=== PATIENT | male | born 1950 | race Caucasian/White ===

== ENCOUNTER 2016-06-01 07:59 | Inpatient (IN) | payer OTHER ==
[2016-06-01 07:59] VITALS: BMI 34.1
--- NOTE | 2016-06-01 08:40 | C.PDOC ---
History Of Present Illness 66 year old male presents to the ED with complaints of hematuria with associated lower cramping abdominal pain for the past 4 days. Patient states he went to his PMD yesterday and was advised to come to the ED. Denies passing clots, difficulty urinating, pain with urination, fever, or any other complaints at this time. Time Seen by Provider: 06/01/16 08:24 Chief Complaint (Nursing): Male Genitourinary History Per: Patient History/Exam Limitations: no limitations Onset/Duration Of Symptoms: Days Current Symptoms Are (Timing): Still Present Severity: Mild Quality Of Discomfort: Cramping Associated Symptoms: denies: Fever, Chills, Nausea, Vomiting, Back Pain Past Medical History Reviewed: Historical Data, Nursing Documentation, Vital Signs Vital Signs: Last Vital Signs Temp 98.4 F 06/01/16 13:11 Pulse 67 06/01/16 13:11 Resp 18 06/01/16 13:11 BP 177/93 H 06/01/16 13:11 Pulse Ox 97 06/01/16 13:11 - Medical History PMH: Diabetes, HTN, Hyperlipidemia, Chronic Kidney Disease (SEE COMMENT) Surgical History: Endoscopy - [facility] Procedures CLOSED ENDOSCOPIC BIOPSY OF LARGE INTESTINE (06/02/14) DESTRUCTION OF BLADDER, ENDO (01/04/16) DRAINAGE OF BLADDER NECK, ENDO, DIAGN (01/04/16) Family History: States: Unknown Family Hx - Social History Hx Tobacco Use: No Hx Alcohol Use: No (Former) Hx Substance Use: No Review Of Systems Except As Marked, All Systems Reviewed And Found Negative. Constitutional: Negative for: Fever, Chills Gastrointestinal: Positive for: Abdominal Pain (+Cramping lower abdominal pain) . Negative for: Nausea, Vomiting, Diarrhea Genitourinary: Positive for: Hematuria. Negative for: Dysuria, Frequency, Incontinence, Penile Pain Musculoskeletal: Negative for: Back Pain Skin: Negative for: Rash Neurological: Negative for: Weakness, Numbness Physical Exam - Physical Exam Appears: Non-toxic, No Acute Distress Skin: Normal Color, Warm, Dry Head: Atraumatic, Normacephalic Eye(s): bilateral: Normal Inspection Oral Mucosa: Moist Chest: Symmetrical, No Deformity Cardiovascular: Rhythm Regular, No Murmur Respiratory: Normal Breath Sounds, No Rales, No Rhonchi, No Wheezing Gastrointestinal/Abdominal: Soft, Tenderness (+Minimal suprapubic tenderness), No Distention, No Guarding, No Rebound Extremity: Normal ROM, No Deformity Neurological/Psych: Oriented x3, Normal Speech, Normal Cognition ED Course And Treatment - Laboratory Results Result Diagrams: 06/01/16 09:25 06/01/16 09:25 O2 Sat by Pulse Oximetry: 98 (Room air) Pulse Ox Interpretation: Normal - CT Scan/US CT ABD & Pelvis w/o contrast Other Rad Studies (CT/US): Read By Radiologist, Radiology Report Reviewed CT/US Interpretation: Findings: Limited evaluation of the lung bases demonstrates an 8 millimeter nodule seen along the fissure on series 3, image 7 anteriorly. Additional 5 millimeter nodule is seen within the right middle lobe anteroinferiorly. Prominent bibasilar atelectasis. Linear atelectasis within the inferior aspect of the left upper lobe. 5 millimeter subpleural nodule along the lateral aspect of the left upper lobe inferiorly. No significant axillary adenopathy. No pleural or pericardial effusion. Prominent liver with fatty infiltration. 5 millimeter calcification within the right hepatic lobe superiorly. Gallbladder appears preserved. Spleen appears preserved. Adrenal glands are preserved. Fatty atrophy of the pancreas. Upper abdominal bowel is preserved. Right kidney: No calculi, mass lesion, or hydronephrosis. Left Kidney: Again identified is a 9.5 x 7.1 x 5.9 centimeter heterogeneous solid lesion previously noted on ultrasound and CT scan. This is thought to be a solid renal cell carcinoma with possible internal necrotic and/ or hemorrhagic components. Since the prior study, there appears to be interval enlargement of the lesion with new prominent perinephric fat stranding and fluid surrounding the left kidney. There is a small focal area of increased attenuation seen within the layering portion of the renal pelvis which may represent some acute hemorrhage. Superimposed acute infectious changes cannot be excluded. Mild thickening of the urinary bladder. Heterogeneous prostate measuring up to 5.3 x 4.1 centimeters. Evaluation of the lower abdominal bowel demonstrates a mild rectal wall thickening. Fecal retention in the colon. Few scattered diverticuli. Under distended descending colon. Appendix not well visualized. Calcification and plaque within the aorta and iliac vessels. Few shotty para-aortic and inguinal lymph nodes. Few shotty mesenteric lymph nodes. Small fat containing midline umbilical hernia. Degenerative changes in the spine with multiple paravertebral osteophytes. Bridging sclerosis at the bilateral SI joints. Again identified is a vertebral body hemangioma in the L1 vertebral body. Impression: Again identified is a 9.5 x 7.1 x 5.9 centimeter heterogeneous solid lesion previously noted on ultrasound and CT scan in the left kidney. This is thought to be a possible solid renal cell carcinoma with possible internal necrotic and/or hemorrhagic components. Since the prior study , there appears to be interval enlargement of the lesion with new prominent perinephric fat stranding and fluid surrounding the left kidney. Clinical correlation. There is a small focal area of increased attenuation seen within the layering portion of the renal pelvis which may represent some acute hemorrhage. Superimposed acute infectious changes cannot be excluded. Additional findings as above. Progress Note: CT ABD & Pelvis w/o contrast, Blood work, and Urinalysis ordered and reviewed. Bladder scan done. Patient treated with Toradol. Medical Decision Making Medical Decision Making: Pt remained stable in the Ed with out difficult urinating CT worsening of renal mass found 12/21 At that time pt was to follow up as OP for surg Case discussed with dr Lor Garcia, in view of the lack of follow up increasing mass and hematuria admission indicated, however hospitalist recommended. Discussed with dr Coleman who agrees with plan Disposition - Disposition Disposition: HOSPITALIZED Disposition Time: 13:15 Condition: GOOD - Clinical Impression Clinical Impression: Hematuria, Renal mass - Scribe Statement The provider has reviewed the documentation as recorded by the Scribe Lewis Johns. Provider Attestation: All medical record entries made by the Scribe were at my direction and personally dictated by me. I have reviewed the chart and agree that the record accurately reflects my personal performance of the history, physical exam, medical decision making, and the department course for this patient. I have also personally directed, reviewed, and agree with the discharge instructions and disposition.
[2016-06-01 09:19] LABS: RBC URINE 322 /hpf (0-3); URINE BILIRUBIN NEGATIVE (NEGATIVE); URINE BLOOD 3+ (NEGATIVE); URINE COLOR Yellow (YELLOW); URINE GLUCOSE (UA) NORMAL (Normal); URINE KETONE NEGATIVE (NEGATIVE); URINE LEUKOCYTE ESTERASE NEG Leu/uL (Negative); URINE PROTEIN 1+ mg/dL (NEGATIVE); URINE UROBILINOGEN NORMAL mg/dL (0.2-1.0); WBC URINE 5 /hpf (0-5)
[2016-06-01 09:37] LABS: BASO # 0.2 K/uL (0.0-0.2); BASO % 1.3 % (0.0-2.0); EOS # 0.1 K/uL (0.0-0.7); EOS % 0.3 % (0.0-4.0); HEMATOCRIT 39.7 % (35.0-51.0); LYMPH # 3.1 K/uL (1.0-4.3); LYMPH % 19.3 % (20.0-40.0); MEAN CORPUSCULAR HEMOGLOBIN 26.5 pg (27.0-31.0); MEAN CORPUSCULAR HGB CONC 32.3 g/dL (33.0-37.0); MEAN PLATELET VOLUME 9.3 fL (7.2-11.7); MONO # 0.9 K/uL (0.0-0.8); MONO % 5.8 % (0.0-10.0); RED CELL DISTRIBUTION WIDTH 14.4 % (11.5-14.5)
[2016-06-01 09:43] LABS: MEAN CELL VOLUME 81.8 fL (80.0-94.0); WHITE BLOOD COUNT 15.9 K/uL (4.8-10.8)
[2016-06-01 09:51] LABS: CHLORIDE 99 mmol/L (98-107)
[2016-06-01 09:52] LABS: POTASSIUM 4.1 mmol/L (3.6-5.2); SODIUM 140 mmol/L (132-148)
[2016-06-01 09:54] LABS: ALB/GLOB RATIO 1.2 (1.0-2.1); ALKALINE PHOSPHATASE 62 U/L (38-126); ALT/SGPT 27 U/L (21-72); AST/SGOT 30 U/L (17-59); BILIRUBIN,TOTAL 1.3 mg/dL (0.2-1.3); BLOOD UREA NITROGEN 29 mg/dL (9-20); CARBON DIOXIDE 26 mmol/L (22-30); GFR AFRICAN-AMERICAN > 60; TOTAL PROTEIN 7.5 g/dL (6.3-8.3)
[2016-06-01 09:55] LABS: CALCIUM 9.3 mg/dl (8.6-10.4); GLUCOSE,RANDOM 124 mg/dL (75-110)
--- NOTE | 2016-06-01 10:46 | CT ---
CT abdomen and pelvis History: Hematuria. Lower abdominal pain. Comparison: CT scan dated 01/03/2016 Technique: Multiple contiguous axial images were performed through the abdomen and pelvis without the use of intravenous contrast. Subsequently, sagittal and coronal reformatted images were obtained. This CT exam was performed using one or more of the following dose reduction techniques: Automated exposure control, adjustment of the mA and/or kV according to patient size, and/or use of iterative reconstruction technique. Findings: Limited evaluation of the lung bases demonstrates an 8 millimeter nodule seen along the fissure on series 3, image 7 anteriorly. Additional 5 millimeter nodule is seen within the right middle lobe anteroinferiorly. Prominent bibasilar atelectasis. Linear atelectasis within the inferior aspect of the left upper lobe. 5 millimeter subpleural nodule along the lateral aspect of the left upper lobe inferiorly. No significant axillary adenopathy. No pleural or pericardial effusion. Prominent liver with fatty infiltration. 5 millimeter calcification within the right hepatic lobe superiorly. Gallbladder appears preserved. Spleen appears preserved. Adrenal glands are preserved. Fatty atrophy of the pancreas. Upper abdominal bowel is preserved. Right kidney: No calculi, mass lesion, or hydronephrosis. Left Kidney: Again identified is a 9.5 x 7.1 x 5.9 centimeter heterogeneous solid lesion previously noted on ultrasound and CT scan. This is thought to be a solid renal cell carcinoma with possible internal necrotic and/or hemorrhagic components. Since the prior study, there appears to be interval enlargement of the lesion with new prominent perinephric fat stranding and fluid surrounding the left kidney. There is a small focal area of increased attenuation seen within the layering portion of the renal pelvis which may represent some acute hemorrhage. Superimposed acute infectious changes cannot be excluded. Mild thickening of the urinary bladder. Heterogeneous prostate measuring up to 5.3 x 4.1 centimeters. Evaluation of the lower abdominal bowel demonstrates a mild rectal wall thickening. Fecal retention in the colon. Few scattered diverticuli. Under distended descending colon. Appendix not well visualized. Calcification and plaque within the aorta and iliac vessels. Few shotty para-aortic and inguinal lymph nodes. Few shotty mesenteric lymph nodes. Small fat containing midline umbilical hernia. Degenerative changes in the spine with multiple paravertebral osteophytes. Bridging sclerosis at the bilateral SI joints. Again identified is a vertebral body hemangioma in the L1 vertebral body. Impression: Again identified is a 9.5 x 7.1 x 5.9 centimeter heterogeneous solid lesion previously noted on ultrasound and CT scan in the left kidney. This is thought to be a possible solid renal cell carcinoma with possible internal necrotic and/or hemorrhagic components. Since the prior study, there appears to be interval enlargement of the lesion with new prominent perinephric fat stranding and fluid surrounding the left kidney. Clinical correlation. There is a small focal area of increased attenuation seen within the layering portion of the renal pelvis which may represent some acute hemorrhage. Superimposed acute infectious changes cannot be excluded. Additional findings as above.
--- NOTE | 2016-06-01 14:04 | CP.PCM.HP ---
<Anish Marte - Last Filed: 06/01/16 22:08> History of Present Illness - History of Present Illness History of Present Illness: CC: hematuria and abdominal pain HPI: 66 year old male presents with complaints of one incidence of hematuria four days ago. Patient also admits to crampy abdominal pain which started yesterday and continued today. Patient states that the hematuria quickly resolved however the abdominal pain remained. The pain was rated an 8/10 at it' s worst yesterday with no alleviating factors noted. He states that he attempted to drink water with lemon which did not make a difference in pain quality. Pain is located below the umbilicus and not radiating. Patient states that he was last admitted in December 2015 for hematuria as well for which Urologist Dr. Garcia was consulted at the time. Upon that discharge, patient was asked to follow up with Dr. Garcia however patient states that he was provided with the wrong address. He was not able to actually see Dr. Garcia until May of this month. On that encounter, patient states that he was told he had a kidney mass which would need further follow up. Presently, patient states that he then had the symptoms of hematuria a few days ago. He spoke with his PMD after the fact who instructed him to come in. Patient admits to back pain last night, urinary frequency, nocturia and crampy abdominal pain relieved my medication given in the ED. At this time, patient denies subjective fevers or chills, nausea, vomiting, diarrhea, constipation, chest pain, palpitations, dyspnea, dysuria, headaches, lightheadedness, or visual changes. Patient speaks scottish only and was accompanied by brother in the room. Consent was obtained to proceed with conversation with brother present. Translation obtained with materials associate Michael #[id number]. Past Med Hx: DM, HTN, gout Past surgical hx: none Family hx: Father had prostate cancer, mother had DM; Sister had thyroid disease. She of lung cancer last year Social hx: denies tobacco or drug use. Used to drink more alcohol however stopped drinking due to gout diagnosis. 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 (Patient states that he worked for many years without using the required mask that his job advised due to facial discomfort) Meds: mima, Metformin 1000mg Q12, Valsartan 320mg, Amlodipine 5 mg daily, Metoprolol Succinate 50mg daily, Indomethacin 25 mg TID, Nabumetone 750mg BID, Atenolol 25mg Q12, ASA 81 mg Allergies: none PMD: Dr. Darrian Richardson Present on Admission - Present on Admission Any Indicators Present on Admission: No Review of Systems - Constitutional Constitutional: absent: Anorexia, Chills, Daytime Sleepiness, Excessive Sweating , Fever, Frequent Falls, Headache, Increased Appetite, Lethargy, Weakness - EENT Eyes: absent: Blurred Vision, Change in Vision Ears: absent: Ear Discharge, Ear Pain Nose/Mouth/Throat: absent: Nasal Congestion, Nasal Discharge - Cardiovascular Cardiovascular: absent: Chest Pain, Chest Pain at Rest, Chest Pain with Activity , Dyspnea, Edema, Irregular Heart Rhythm - Respiratory Respiratory: absent: Cough, Dyspnea, Hemoptysis - Gastrointestinal Gastrointestinal: Abdominal Pain. absent: Diarrhea, Loose Stools, Melena, Nausea, Vomiting - Genitourinary Genitourinary: Hematuria, Nocturia, Urinary Frequency. absent: Difficulty Urinating, Flank Pain, Urinary Incontinence, Urinary Hesitance - Musculoskeletal Musculoskeletal: Back Pain. absent: Abnormal Gait, Arthralgias - Integumentary Integumentary: absent: Dry Skin, Rash - Neurological Neurological: absent: Abnormal Gait, Abnormal Hearing - Psychiatric Psychiatric: absent: Abnormal Sleep Pattern, Anhedonia - Endocrine Endocrine: absent: Change in Body Appearance - Hematologic/Lymphatic Hematologic: absent: Easy Bleeding, Easy Bruising Past Patient History - Infectious Disease Hx of Infectious Diseases: None - Tetanus Immunizations Tetanus Immunization: Unknown - Past Medical History & Family History Past Medical History?: Yes - Past Social History Smoking Status: Never Smoked - CARDIAC Hx Hypertension: Yes - PULMONARY Hx Respiratory Disorders: No - NEUROLOGICAL Hx Neurological Disorder: No - HEENT Hx HEENT Problems: No - RENAL Hx Chronic Kidney Disease: Yes (SEE COMMENT) - ENDOCRINE/METABOLIC Hx Endocrine Disorders: Yes Hx Diabetes Mellitus Type 2: Yes - HEMATOLOGICAL/ONCOLOGICAL Hx Blood Disorders: No - INTEGUMENTARY Hx Dermatological Problems: No - MUSCULOSKELETAL/RHEUMATOLOGICAL Hx Musculoskeletal Disorders: Yes Hx Gout: Yes - GASTROINTESTINAL Hx Gastrointestinal Disorders: No - GENITOURINARY/GYNECOLOGICAL Hx Genitourinary Disorders: No Other/Comment: mass to Lt. kidney - PSYCHIATRIC Hx Substance Use: No - SURGICAL HISTORY Hx Surgeries: Yes - ANESTHESIA Hx Anesthesia: Yes Hx Anesthesia Reactions: No Hx Malignant Hyperthermia: No Meds Allergies/Adverse Reactions: Allergies Allergy/AdvReac Type Severity Reaction Status Date / Time No Known Allergies Allergy Verified 06/01/16 08:22 Physical Exam - Constitutional Appears: Non-toxic, No Acute Distress - Head Exam Head Exam: ATRAUMATIC, NORMAL INSPECTION, NORMOCEPHALIC - Eye Exam Eye Exam: EOMI, Normal appearance, PERRL Pupil Exam: NORMAL ACCOMODATION - ENT Exam ENT Exam: Mucous Membranes Moist, Normal Exam - Neck Exam Neck exam: Positive for: Full Rom - Respiratory Exam Respiratory Exam: Clear to Auscultation Bilateral, NORMAL BREATHING PATTERN. absent: Wheezes - Cardiovascular Exam Cardiovascular Exam: REGULAR RHYTHM, +S1, +S2. absent: Bradycardia, Tachycardia - GI/Abdominal Exam GI & Abdominal Exam: Distended, Normal Bowel Sounds, Soft, Tenderness. absent: Firm, Guarding Additional comments: healed dark burn cedeno above umbilicus - Extremities Exam Extremities exam: Positive for: full ROM, normal capillary refill, pedal pulses present. Negative for: calf tenderness, joint swelling, pedal edema, tenderness - Back Exam Back exam: FULL ROM. absent: CVA tenderness (L), CVA tenderness (R), rash noted - Neurological Exam Neurological exam: Alert, CN II-XII Intact, Oriented x3, Reflexes Normal - Psychiatric Exam Psychiatric exam: Normal Affect, Normal Mood - Skin Skin Exam: Intact, Normal Color, Warm Additional comments: burn cedeno on abdomen and chest Results - Vital Signs Recent Vital Signs: Last Vital Signs Temp 98.4 F 06/01/16 13:11 Pulse 67 06/01/16 13:11 Resp 18 06/01/16 13:11 BP 177/93 H 06/01/16 13:11 Pulse Ox 97 06/01/16 13:11 - Labs Result Diagrams: 06/01/16 09:25 06/01/16 09:25 Assessment & Plan (1) Abdominal pain Assessment and Plan: Toradol administered in ED. Alleviated pain F/U US imaging CT- renal mass noted Status: Acute (2) Renal mass Assessment and Plan: CT imaging confirms left renal mass. Refer to full report Pelvic US- F/U report Consult to Urology Dr. Garcia- F/U Routine EKG, Chest xray, coags ordered in case pre-op clearance needed. Status: Acute (3) Hypertension Assessment and Plan: Home beta nick meds held due to dec HR. Patient took all home BP meds earlier today Amlodipine, Losartan to cont in AM IVF fluids on board @ gentle rate of 50cc/hr. May decrease rate if BP elevated Monitor Status: Chronic (4) [place] (acute kidney injury) Assessment and Plan: IVF fluids on board @ gentle rate of 50cc/hr. May decrease rate if BP elevated BUN/Cr mildly elevated likely due to dehydration Status: Acute (5) Hematuria Assessment and Plan: One episode 4 days prior UA positive for blood F/U UC F/U US results F/U Urology results Hold NSAIDs at this time due to risk of further bleed Hgb stable 12.8 Status: Acute (6) Diabetes mellitus Assessment and Plan: ISS, Metformin held Accuchecks F/U HgbA1c, Lipid panel Status: Chronic (7) Prophylactic measure Assessment and Plan: SCDs VTE contraindicated due to genitourinary bleed No GI indication at this time Status: Acute <Philomena Coleman V - Last Filed: 06/02/16 09:12> Results - Vital Signs Recent Vital Signs: Last Vital Signs Temp 97.5 F L 06/02/16 07:59 Pulse 60 06/02/16 07:59 Resp 20 06/02/16 07:59 BP 186/96 H 06/02/16 07:59 Pulse Ox 97 06/02/16 07:59 - Labs Result Diagrams: 06/02/16 07:20 06/02/16 07:20 Labs: Laboratory Results - last 24 hr 06/01/16 06/01/16 06/02/16 17:12 21:13 07:05 WBC RBC Hgb Hct MCV MCH MCHC RDW Plt Count MPV Neut % (Auto) Lymph % (Auto) [place] % (Auto) Eos % (Auto) Baso % (Auto) Neut # Lymph # [place] # Eos # Baso # PT 15.0 H INR 1.3 APTT 32 Sodium Potassium Chloride Carbon Dioxide Anion Gap BUN Creatinine Est GFR ( Amer) Est GFR (Non-Af Amer) POC Glucose (mg/dL) 108 119 H Random Glucose Hemoglobin A1c Calcium Phosphorus Magnesium Total Bilirubin AST ALT Alkaline Phosphatase Total Protein Albumin Globulin Albumin/Globulin Ratio Triglycerides Cholesterol LDL Cholesterol Direct HDL Cholesterol 06/02/16 06/02/16 06/02/16 07:20 07:20 07:20 WBC 11.5 H RBC 4.83 Hgb 12.9 Hct 39.7 MCV 82.1 MCH 26.6 L MCHC 32.4 L RDW 14.3 Plt Count 293 MPV 9.3 Neut % (Auto) 65.9 Lymph % (Auto) 24.6 [place] % (Auto) 7.0 Eos % (Auto) 1.6 Baso % (Auto) 0.9 Neut # 7.6 H Lymph # 2.8 [place] # 0.8 Eos # 0.2 Baso # 0.1 PT 14.9 H INR 1.3 APTT 32 Sodium Potassium Chloride Carbon Dioxide Anion Gap BUN Creatinine Est GFR ( Amer) Est GFR (Non-Af Amer) POC Glucose (mg/dL) Random Glucose Hemoglobin A1c 6.5 Calcium Phosphorus Magnesium Total Bilirubin AST ALT Alkaline Phosphatase Total Protein Albumin Globulin Albumin/Globulin Ratio Triglycerides Cholesterol LDL Cholesterol Direct HDL Cholesterol 06/02/16 07:20 WBC RBC Hgb Hct MCV MCH MCHC RDW Plt Count MPV Neut % (Auto) Lymph % (Auto) [place] % (Auto) Eos % (Auto) Baso % (Auto) Neut # Lymph # [place] # Eos # Baso # PT INR APTT Sodium 141 Potassium 3.5 L Chloride 102 Carbon Dioxide 26 Anion Gap 17 BUN 29 H Creatinine 1.8 H Est GFR ( Amer) 46 Est GFR (Non-Af Amer) 38 POC Glucose (mg/dL) Random Glucose 120 H Hemoglobin A1c Calcium 8.6 Phosphorus 4.5 Magnesium 1.6 Total Bilirubin 1.1 AST 21 ALT 23 Alkaline Phosphatase 57 Total Protein 6.7 Albumin 3.5 Globulin 3.2 Albumin/Globulin Ratio 1.1 Triglycerides 195 H D Cholesterol 194 LDL Cholesterol Direct 107 HDL Cholesterol 28 L Attending/Attestation - Attestation I have personally seen and examined this patient.: Yes I have fully participated in the care of the patient.: Yes I have reviewed all pertinent clinical information: Yes Notes (Text): This is late computer entry for 06/01/16. Patient seen, examined and case discussed with day-time resident. Patient seen on [facility] approximately at 3:10PM on 06/01/16. Patient reporting 4 day history of hematuria with associated dysuria and suprapubic pain. Patient has had a prior hospitalization in January 2016 noting for renal mass but had not follow-up with urology because did not have correct address to find the urologist until some months later. Discussed with ED Physician, Dr. Watkins, urology contact will see the patient. Review CT Abdomen/Pelvis noted below for extensive renal mass with possible associated hemorrhage. ordered for preoperative-->EKG, Chest xray and INR for AM Follow-up with urology. Starte empiric IV antibotic coverage for dysuria and/or pyelonephritis Assessment & Plan (1) Renal mass Assessment and Plan: * CT imaging (06/01/16): 9.5 X7.1X5.9 cm heterogenous solid lesion noted on US and CT scan in the left kidney. Possible solid renal cell carcinoma with internal necrotic and/or hemorrhagic components. interval enlargment of the lesion with prominent peripheric fat stranding and fluid surroudnging left kidney. Possible cute hemorrhage. * Pelvic US- F/U report * Consult to Urology Dr. Garcia- F/U * Routine EKG, Chest xray, coags ordered in case pre-op clearance needed. * Hold NSAIDs Status: Acute (2) Dysuria * Rocephin 1 gram IV q 12 hours * F/u urine culture * CT imaging (06/01/16): 9.5 X7.1X5.9 cm heterogenous solid lesion noted on US and CT scan in the left kidney. Possible solid renal cell carcinoma with internal necrotic and/or hemorrhagic components. interval enlargment of the lesion with prominent peripheric fat stranding and fluid surroudnging left kidney. Possible cute hemorrhage (3) Hypertension Assessment and Plan: * Uncontrolled * Home beta nick meds held due to jan HR. * Patient took all home BP meds earlier today * Will continue home dose of Losartan/Amlodpine * IVF fluids on board @ gentle rate of 50cc/hr. May decrease rate if BP elevated Status: Chronic (4) [place] (acute kidney injury) Assessment and Plan: * IVF fluids on board @ gentle rate of 50cc/hr. May decrease rate if BP elevated * BUN/Cr mildly elevated likely due to dehydration and post renal secondary to renal tumor Status: Acute (5) Hematuria Assessment and Plan: * One episode 4 days prior * UA positive for blood * F/U Urine culture * F/U US results * F/U Urology results * Hold NSAIDs at this time due to risk of further bleed * Hgb stable 12.8 Status: Acute (6) Diabetes mellitus Assessment and Plan: * ISS, Metformin held * Accuchecks QAC and HS * F/U HgbA1c, Lipid panel in AM Status: Chronic (7) Leukocytosis Assessment and Plan: * f/u blood cultures, urine culture, and chest xray * IV abx: Rocephin 1 gram IV Q 12hours Status: Acute (8) Prophylactic measure Assessment and Plan: * SCDs * VTE contraindicated due to genitourinary bleed * Protonix 40mg IV q daily Status: Acute
[2016-06-01 17:56] LABS: INR 1.3
[2016-06-01] MEDS: Sodium Chloride 0.9% 1,000 ML IV SCH ×2 (20:05→20:09)
[2016-06-01] MEDS: (Novolog) Insulin Aspart, Recombinant 100 u/ml 10 ml vial SC SCH (22:04)
[2016-06-02 07:33] LABS: BASO # 0.1 K/uL (0.0-0.2); BASO % 0.9 % (0.0-2.0); EOS # 0.2 K/uL (0.0-0.7); EOS % 1.6 % (0.0-4.0); HEMATOCRIT 39.7 % (35.0-51.0); LYMPH # 2.8 K/uL (1.0-4.3); LYMPH % 24.6 % (20.0-40.0); MEAN CELL VOLUME 82.1 fL (80.0-94.0); MEAN CORPUSCULAR HEMOGLOBIN 26.6 pg (27.0-31.0); MEAN CORPUSCULAR HGB CONC 32.4 g/dL (33.0-37.0); MEAN PLATELET VOLUME 9.3 fL (7.2-11.7); MONO # 0.8 K/uL (0.0-0.8); RED CELL DISTRIBUTION WIDTH 14.3 % (11.5-14.5); WHITE BLOOD COUNT 11.5 K/uL (4.8-10.8)
[2016-06-02 07:43] LABS: INR 1.3
[2016-06-02 08:09] LABS: POTASSIUM 3.5 mmol/L (3.6-5.2)
[2016-06-02 08:11] LABS: ALB/GLOB RATIO 1.1 (1.0-2.1); BILIRUBIN,TOTAL 1.1 mg/dL (0.2-1.3); PHOSPHOROUS 4.5 mg/dL (2.5-4.5); TOTAL PROTEIN 6.7 g/dL (6.3-8.3)
[2016-06-02 08:12] LABS: CALCIUM 8.6 mg/dl (8.6-10.4); MAGNESIUM 1.6 mg/dL (1.6-2.3)
[2016-06-02] MEDS: (Novolog) Insulin Aspart, Recombinant 100 u/ml 10 ml vial SC SCH ×4 (08:13→21:47)
--- NOTE | 2016-06-02 08:42 | RAD ---
Chest x-ray single frontal view History: Preoperative evaluation. Hypertension. Comparison: 01/03/2016 Findings: Mild venous congestion. Heart size within normal limits. Degenerative changes in the spine. Impression: Mild venous congestion.
[2016-06-02] MEDS ORDERED: Metoprolol Succinate 50 mg XL Tab PO SCH ×2 (10:00)
--- NOTE | 2016-06-02 10:12 | US ---
PROCEDURE: Ultrasound of the Kidneys HISTORY: mass COMPARISON: None available. TECHNIQUE: Sonogram of the kidneys. FINDINGS: RIGHT KIDNEY: Measures: 12.0 x 6.0 x 5.2 cm. Normal in size, contour and echogenicity. No stone, solid mass lesion or hydronephrosis visualized. LEFT KIDNEY: Measures: 16.2 x 6.9 x 6.1 cm. Upper pole solid mass, 8.1 x 8.5 x 7.4 cm. Trace left perinephric fluid. No calculus or hydronephrosis. OTHER FINDINGS: Evaluation of urinary bladder: Distended urinary bladder 167.9 cc. Suboptimally distended. Smooth contour. Right ureteral jet definitely demonstrated. Left ureteral jet not seen. No intraluminal mass. Postvoid residual volume 17.9 cc. IMPRESSION: 8.5 cm left upper pole renal mass, demonstrated on CT examination of the same date as well as on CT examination 01/03/2016. No significant postvoid residual within urinary bladder.
[2016-06-02] MEDS ORDERED: Potassium Chloride 20 mEq ER Tab PO ONE ×2 (10:15→12:30)
--- NOTE | 2016-06-02 11:56 | CARD ---
APPROVED REPORT EKG Measurement Heart [id number] <Conclusion> Sinus bradycardia Minimal voltage criteria for LVH, may be normal variant Borderline ECG
[2016-06-02] MEDS: cefTRIAXone IV 1 gm in Dextros 50 ML IVPB SCH ×2 (12:29→21:22)
[2016-06-02] MEDS: Sodium Chloride 0.9% 1,000 ML IV SCH ×2 (13:03→23:19)
--- NOTE | 2016-06-02 16:22 | CP.PCM.CON ---
Past Patient History - Infectious Disease Hx of Infectious Diseases: None - Tetanus Immunizations Tetanus Immunization: Unknown - Past Medical History & Family History Past Medical History?: Yes - Past Social History Smoking Status: Never Smoked - CARDIAC Hx Hypertension: Yes - PULMONARY Hx Respiratory Disorders: No - NEUROLOGICAL Hx Neurological Disorder: No - HEENT Hx HEENT Problems: No - RENAL Hx Chronic Kidney Disease: Yes (SEE COMMENT) - ENDOCRINE/METABOLIC Hx Endocrine Disorders: Yes Hx Diabetes Mellitus Type 2: Yes - HEMATOLOGICAL/ONCOLOGICAL Hx Blood Disorders: No - INTEGUMENTARY Hx Dermatological Problems: No - MUSCULOSKELETAL/RHEUMATOLOGICAL Hx Musculoskeletal Disorders: Yes Hx Gout: Yes - GASTROINTESTINAL Hx Gastrointestinal Disorders: No - GENITOURINARY/GYNECOLOGICAL Hx Genitourinary Disorders: No Other/Comment: mass to Lt. kidney - PSYCHIATRIC Hx Substance Use: No - SURGICAL HISTORY Hx Surgeries: Yes - ANESTHESIA Hx Anesthesia: Yes Hx Anesthesia Reactions: No Hx Malignant Hyperthermia: No Meds Allergies/Adverse Reactions: Allergies Allergy/AdvReac Type Severity Reaction Status Date / Time No Known Allergies Allergy Verified 06/01/16 08:22 - Medications Medications: Current Medications Amlodipine Besylate (Norvasc) 10 mg PO DAILY [facility] Last Admin: 06/02/16 09:13 Dose: 10 mg Ceftriaxone Sodium (Rocephin Iv 1 Gm Duplex) 50 mls @ 100 mls/hr IVPB Q12 [facility] Last Admin: 06/02/16 12:29 Dose: 100 mls/hr Sodium Chloride (Sodium Chloride 0.9%) 1,000 mls @ 75 mls/hr IV .[id number] [facility] Last Admin: 06/02/16 13:03 Dose: 75 mls/hr Insulin Aspart (Novolog) 0 unit SC ACHS [facility] PRN Reason: Protocol Last Admin: 06/02/16 12:30 Dose: Not Given Losartan Potassium (Cozaar) 25 mg PO DAILY [facility] Last Admin: 06/02/16 09:13 Dose: 25 mg Pantoprazole Sodium (Protonix Inj) 40 mg IVP DAILY [facility] Last Admin: 06/02/16 12:29 Dose: 40 mg Pneumococcal Polyvalent Vaccine (Pneumovax 23 Vaccine) 0.5 ml IM .ONCE ONE Stop: 06/03/16 09:03 Results - Vital Signs Recent Vital Signs: Last Vital Signs Temp 97.5 F L 06/02/16 07:59 Pulse 60 06/02/16 07:59 Resp 20 06/02/16 07:59 BP 186/96 H 06/02/16 07:59 Pulse Ox 97 06/02/16 07:59 - Labs Result Diagrams: 06/02/16 07:20 06/02/16 07:20 Labs: Laboratory Results - last 24 hr 06/01/16 06/01/16 06/02/16 17:12 21:13 07:05 WBC RBC Hgb Hct MCV MCH MCHC RDW Plt Count MPV Neut % (Auto) Lymph % (Auto) [place] % (Auto) Eos % (Auto) Baso % (Auto) Neut # Lymph # [place] # Eos # Baso # PT 15.0 H INR 1.3 APTT 32 Sodium Potassium Chloride Carbon Dioxide Anion Gap BUN Creatinine Est GFR ( Amer) Est GFR (Non-Af Amer) POC Glucose (mg/dL) 108 119 H Random Glucose Hemoglobin A1c Calcium Phosphorus Magnesium Total Bilirubin AST ALT Alkaline Phosphatase Total Protein Albumin Globulin Albumin/Globulin Ratio Triglycerides Cholesterol LDL Cholesterol Direct HDL Cholesterol 06/02/16 06/02/16 06/02/16 07:20 07:20 07:20 WBC 11.5 H RBC 4.83 Hgb 12.9 Hct 39.7 MCV 82.1 MCH 26.6 L MCHC 32.4 L RDW 14.3 Plt Count 293 MPV 9.3 Neut % (Auto) 65.9 Lymph % (Auto) 24.6 [place] % (Auto) 7.0 Eos % (Auto) 1.6 Baso % (Auto) 0.9 Neut # 7.6 H Lymph # 2.8 [place] # 0.8 Eos # 0.2 Baso # 0.1 PT 14.9 H INR 1.3 APTT 32 Sodium Potassium Chloride Carbon Dioxide Anion Gap BUN Creatinine Est GFR ( Amer) Est GFR (Non-Af Amer) POC Glucose (mg/dL) Random Glucose Hemoglobin A1c 6.5 Calcium Phosphorus Magnesium Total Bilirubin AST ALT Alkaline Phosphatase Total Protein Albumin Globulin Albumin/Globulin Ratio Triglycerides Cholesterol LDL Cholesterol Direct HDL Cholesterol 06/02/16 06/02/16 07:20 11:21 WBC RBC Hgb Hct MCV MCH MCHC RDW Plt Count MPV Neut % (Auto) Lymph % (Auto) [place] % (Auto) Eos % (Auto) Baso % (Auto) Neut # Lymph # [place] # Eos # Baso # PT INR APTT Sodium 141 Potassium 3.5 L Chloride 102 Carbon Dioxide 26 Anion Gap 17 BUN 29 H Creatinine 1.8 H Est GFR ( Amer) 46 Est GFR (Non-Af Amer) 38 POC Glucose (mg/dL) 99 Random Glucose 120 H Hemoglobin A1c Calcium 8.6 Phosphorus 4.5 Magnesium 1.6 Total Bilirubin 1.1 AST 21 ALT 23 Alkaline Phosphatase 57 Total Protein 6.7 Albumin 3.5 Globulin 3.2 Albumin/Globulin Ratio 1.1 Triglycerides 195 H D Cholesterol 194 LDL Cholesterol Direct 107 HDL Cholesterol 28 L Assessment & Plan - Assessment and Plan (Free Text) Assessment: IMP: RENAL TUMOR HX OF HEMATURIA ABD PAIN AZOTEMIA - Date & Time Date: 06/02/16 Time: 16:22
--- NOTE | 2016-06-02 21:09 | CP.PCM.PN ---
<Anish Marte - Last Filed: 06/02/16 21:04> Subjective - Date & Time of Evaluation Date of Evaluation: 06/02/16 Time of Evaluation: 09:23 - Subjective Subjective: PGY 1 Medicine Note- Dr. Coleman's service Pt seen and examined in no acute distress. Pt denies any pain at this time. Patient is urinating clear yellow output. Patient denies fevers, chills, headaches, palpitations, nausea, vomiting, diarrhea at this time. Objective - Vital Signs/Intake and Output Vital Signs (last 24 hours): Temp Pulse Resp BP Pulse Ox 98.4 F 57 L 20 179/90 H 96 06/02/16 16:00 06/02/16 16:00 06/02/16 16:00 06/02/16 16:00 06/02/16 16:00 Intake and Output: 06/02/16 06/03/16 18:59 06:59 Intake Total 1150 Output Total 600 Balance 550 - Medications Medications: Current Medications Amlodipine Besylate (Norvasc) 10 mg PO DAILY [facility] Last Admin: 06/02/16 09:13 Dose: 10 mg Ceftriaxone Sodium (Rocephin Iv 1 Gm Duplex) 50 mls @ 100 mls/hr IVPB Q12 [facility] Last Admin: 06/02/16 12:29 Dose: 100 mls/hr Sodium Chloride (Sodium Chloride 0.9%) 1,000 mls @ 75 mls/hr IV .[id number] [facility] Last Admin: 06/02/16 13:03 Dose: 75 mls/hr Insulin Aspart (Novolog) 0 unit SC ACHS [facility] PRN Reason: Protocol Last Admin: 06/02/16 17:01 Dose: Not Given Losartan Potassium (Cozaar) 25 mg PO DAILY [facility] Last Admin: 06/02/16 09:13 Dose: 25 mg Pantoprazole Sodium (Protonix Inj) 40 mg IVP DAILY [facility] Last Admin: 06/02/16 12:29 Dose: 40 mg Pneumococcal Polyvalent Vaccine (Pneumovax 23 Vaccine) 0.5 ml IM .ONCE ONE Stop: 06/03/16 09:03 - Labs Labs: 06/02/16 07:20 06/02/16 07:20 PT 14.9 SECONDS (9.7-12.2) H 06/02/16 07:20 INR 1.3 04/28/17 07:20 APTT 32 SECONDS (21-34) 06/02/16 07:20 - Constitutional Appears: Non-toxic, No Acute Distress - Head Exam Head Exam: ATRAUMATIC, NORMAL INSPECTION, NORMOCEPHALIC - Eye Exam Eye Exam: EOMI, Normal appearance, PERRL Pupil Exam: NORMAL ACCOMODATION - ENT Exam ENT Exam: Mucous Membranes Moist, Normal Exam - Neck Exam Neck Exam: Full ROM, Normal Inspection - Respiratory Exam Respiratory Exam: Clear to Ausculation Bilateral. absent: Wheezes - Cardiovascular Exam Cardiovascular Exam: +S1, +S2 - GI/Abdominal Exam GI & Abdominal Exam: Distended, Soft, Normal Bowel Sounds. absent: Guarding, Tenderness - Extremities Exam Extremities Exam: Full ROM, Normal Capillary Refill. absent: Pedal Edema - Back Exam Back Exam: Full ROM - Neurological Exam Neurological Exam: Alert, Awake, CN II-XII Intact, Oriented x3 - Psychiatric Exam Psychiatric exam: Normal Affect, Normal Mood - Skin Skin Exam: Dry, Normal Color, Warm Assessment and Plan (1) Abdominal pain Status: Acute (2) Renal mass Status: Acute (3) Hypertension Status: Chronic (4) [place] (acute kidney injury) Status: Acute (5) Hematuria Status: Acute (6) Diabetes mellitus Status: Chronic (7) Prophylactic measure Status: Acute - Assessment and Plan (Free Text) Assessment: Renal mass Assessment and Plan: * CT imaging (06/01/16): 9.5 X7.1X5.9 cm heterogenous solid lesion noted on US and CT scan in the left kidney. Possible solid renal cell carcinoma with internal necrotic and/or hemorrhagic components. interval enlargment of the lesion with prominent peripheric fat stranding and fluid surroudnging left kidney. Possible cute hemorrhage. * Pelvic US- 8.5 cm left upper pole renal mass noted on prior December 2015 imaging as well. No significant post-void residual within urinary bladder. F/U report * Consult to Urology Dr. Garcia- F/U plan * Routine EKG ( sinus bhargavi w/o symptoms), Chest xray no active signs of disease , coags ordered in case pre-op clearance needed. * Hold NSAIDs Status: Acute Dysuria Assessment and Plan: * Rocephin 1 gram IV q 12 hours * F/u urine culture * CT imaging (06/01/16): 9.5 X7.1X5.9 cm heterogenous solid lesion noted on US and CT scan in the left kidney. Possible solid renal cell carcinoma with internal necrotic and/or hemorrhagic components. interval enlargment of the lesion with prominent peripheric fat stranding and fluid surroudnging left kidney. Possible cute hemorrhage Hypertension Assessment and Plan: * Uncontrolled * Home beta nick meds held due to dec HR. * Patient took all home BP meds earlier today * Will continue home dose of Losartan/Amlodpine * IVF fluids on board increased to 75 cc/hr. Monitor BP Status: Chronic [place] (acute kidney injury) Assessment and Plan: * IVF fluids inc to 75cc/hr. May decrease rate if BP elevated * BUN/Cr mildly elevated likely due to dehydration and post renal secondary to renal tumor Status: Acute Hematuria Assessment and Plan: * One episode 4 days prior * UA positive for blood * US results as mentioned above * Hold NSAIDs at this time due to risk of further bleed * Hgb stable Status: Acute Diabetes mellitus Assessment and Plan: * ISS, Metformin held * Accuchecks ACHS * HgbA1c 6.5, Lipid panel Status: Chronic Leukocytosis Assessment and Plan: * F/U cultures. UC negative * IV abx: Rocephin 1 gram IV Q 12hours Status: Acute Prophylactic measure Assessment and Plan: * SCDs * VTE contraindicated due to genitourinary bleed * Protonix 40mg IV q daily Status: Acute <Philomena Coleman V - Last Filed: 06/03/16 22:42> Objective - Vital Signs/Intake and Output Vital Signs (last 24 hours): Temp Pulse Resp BP Pulse Ox 98 F 55 L 20 168/87 H 97 06/03/16 16:00 06/03/16 16:03 06/03/16 16:00 06/03/16 16:00 06/03/16 16:03 Intake and Output: 06/03/16 06/04/16 18:59 06:59 Intake Total 950 250 Balance 950 250 - Medications Medications: Current Medications Amlodipine Besylate (Norvasc) 10 mg PO DAILY [facility] Last Admin: 06/03/16 10:04 Dose: 10 mg Ceftriaxone Sodium (Rocephin Iv 1 Gm Duplex) 50 mls @ 100 mls/hr IVPB Q12 [facility] Last Admin: 06/03/16 22:09 Dose: 100 mls/hr Insulin Aspart (Novolog) 0 unit SC ACHS [facility] PRN Reason: Protocol Last Admin: 06/03/16 22:14 Dose: Not Given Losartan Potassium (Cozaar) 25 mg PO DAILY [facility] Last Admin: 06/03/16 10:04 Dose: 25 mg Pantoprazole Sodium (Protonix Inj) 40 mg IVP DAILY [facility] Last Admin: 06/03/16 10:04 Dose: 40 mg - Labs Labs: 06/03/16 07:31 06/03/16 07:31 PT 14.9 SECONDS (9.7-12.2) H 06/02/16 07:20 INR 1.3 06/02/16 07:20 APTT 32 SECONDS (21-34) 06/02/16 07:20 Attending/Attestation - Attestation I have personally seen and examined this patient.: Yes I have fully participated in the care of the patient.: Yes I have reviewed all pertinent clinical information, including history, physical exam and plan: Yes Notes (Text): this is a late computer entry for 06/02/16. Patient seen, examined, and case discussed with day-time resident. Patient denies acute complaints today. Follow-up with urology Heme-onc (Dr. Anuradha Morris) consulted for possible renal cell carcinoma Blood pressure control Follow-up blood and urine cultures. Patient started on empiric broad coverage Abx for suspected urinary tract infection Monitor BUN/Cr This is late computer entry for 06/01/16. Patient seen, examined and case discussed with day-time resident. Patient seen on [facility] [facility] approximately at 3:10PM on 06/01/16. Patient reporting 4 day history of hematuria with associated dysuria and suprapubic pain. Patient has had a prior hospitalization in January 2016 noting for renal mass but had not follow-up with urology because did not have correct address to find the urologist until some months later. Discussed with ED Physician, Dr. Watkins, urology contact will see the patient. Review CT Abdomen/Pelvis noted below for extensive renal mass with possible associated hemorrhage. ordered for preoperative-->EKG, Chest xray and INR for AM Follow-up with urology. Starte empiric IV antibotic coverage for dysuria and/or pyelonephritis Assessment & Plan (1) Renal mass Assessment and Plan: * CT imaging (06/01/16): 9.5 X7.1X5.9 cm heterogenous solid lesion noted on US and CT scan in the left kidney. Possible solid renal cell carcinoma with internal necrotic and/or hemorrhagic components. interval enlargment of the lesion with prominent peripheric fat stranding and fluid surroudnging left kidney. Possible cute hemorrhage. * Pelvic US- F/U report * Consult to Urology Dr. Garcia- F/U * Routine EKG, Chest xray, coags ordered in case pre-op clearance needed. * Hold NSAIDs * Heme-onc [id number] Status: Acute (2) Dysuria * Rocephin 1 gram IV q 12 hours (active since 06/02/16) * F/u urine culture * CT imaging (06/01/16): 9.5 X7.1X5.9 cm heterogenous solid lesion noted on US and CT scan in the left kidney. Possible solid renal cell carcinoma with internal necrotic and/or hemorrhagic components. interval enlargment of the lesion with prominent peripheric fat stranding and fluid surroudnging left kidney. Possible cute hemorrhage (3) Hypertension Assessment and Plan: * Uncontrolled * Home beta nick meds held due to dec HR. * Patient took all home BP meds earlier today * Increase Norvasc 10mg PO daily * IVF fluids on board. May decrease rate if BP elevated Status: Chronic (4) [place] (acute kidney injury) Assessment and Plan: * IVF fluids on board * BUN/Cr mildly elevated likely due to dehydration and post renal secondary to renal tumor * Monitor BUN/Cr * f/u urology Status: Acute (5) Hematuria Assessment and Plan: * One episode 4 days prior * UA positive for blood * F/U Urine culture * F/U US results * F/U Urology results * Hold NSAIDs at this time due to risk of further bleed * Hgb stable Status: Acute
--- NOTE | 2016-06-02 22:18 | CP.PCM.CON ---
History of Present Illness - History of Present Illness History of Present Illness: 66 year old male with a history of HTN, admitted with hematuria and pelvic discomfort found to have a left renal mass. The patient reports to 4 days of blood in the urine. He denies pain with urination and denies passage of clots. He denies weightloss and fatigue. A catscan of the abdomen and pelvis revealed a left sided renal mass. Past medical history: HTN Past surgical history: None Family history: Denies hematologic and oncologic problems Social history: Denies tobacco, alcohol, and illicit drug use. Allergies:" NKA Review of systems: All remaining review of systems including HEENT, cadriovascular, respiratory, gastrointestinal, genitourinary, musculoskeletal, dermatologic, and neurologic are negative unless mentioned in the HPI. Past Patient History - Infectious Disease Hx of Infectious Diseases: None - Tetanus Immunizations Tetanus Immunization: Unknown - Past Medical History & Family History Past Medical History?: Yes - Past Social History Smoking Status: Never Smoked - CARDIAC Hx Hypertension: Yes - PULMONARY Hx Respiratory Disorders: No - NEUROLOGICAL Hx Neurological Disorder: No - HEENT Hx HEENT Problems: No - RENAL Hx Chronic Kidney Disease: Yes (SEE COMMENT) - ENDOCRINE/METABOLIC Hx Endocrine Disorders: Yes Hx Diabetes Mellitus Type 2: Yes - HEMATOLOGICAL/ONCOLOGICAL Hx Blood Disorders: No - INTEGUMENTARY Hx Dermatological Problems: No - MUSCULOSKELETAL/RHEUMATOLOGICAL Hx Musculoskeletal Disorders: Yes Hx Gout: Yes - GASTROINTESTINAL Hx Gastrointestinal Disorders: No - GENITOURINARY/GYNECOLOGICAL Hx Genitourinary Disorders: No Other/Comment: mass to Lt. kidney - PSYCHIATRIC Hx Substance Use: No - SURGICAL HISTORY Hx Surgeries: Yes - ANESTHESIA Hx Anesthesia: Yes Hx Anesthesia Reactions: No Hx Malignant Hyperthermia: No Meds Allergies/Adverse Reactions: Allergies Allergy/AdvReac Type Severity Reaction Status Date / Time No Known Allergies Allergy Verified 06/01/16 08:22 - Medications Medications: Current Medications Amlodipine Besylate (Norvasc) 10 mg PO DAILY [facility] Last Admin: 06/02/16 09:13 Dose: 10 mg Ceftriaxone Sodium (Rocephin Iv 1 Gm Duplex) 50 mls @ 100 mls/hr IVPB Q12 [facility] Last Admin: 06/02/16 21:22 Dose: 100 mls/hr Sodium Chloride (Sodium Chloride 0.9%) 1,000 mls @ 75 mls/hr IV .[id number] [facility] Last Admin: 06/02/16 13:03 Dose: 75 mls/hr Insulin Aspart (Novolog) 0 unit SC ACHS [facility] PRN Reason: Protocol Last Admin: 06/02/16 21:47 Dose: Not Given Losartan Potassium (Cozaar) 25 mg PO DAILY [facility] Last Admin: 06/02/16 09:13 Dose: 25 mg Pantoprazole Sodium (Protonix Inj) 40 mg IVP DAILY [facility] Last Admin: 06/02/16 12:29 Dose: 40 mg Pneumococcal Polyvalent Vaccine (Pneumovax 23 Vaccine) 0.5 ml IM .ONCE ONE Stop: 06/03/16 09:03 Physical Exam - Head Exam Head Exam: ATRAUMATIC - Eye Exam Eye Exam: Normal appearance - ENT Exam ENT Exam: Mucous Membranes Dry - Respiratory Exam Respiratory Exam: NORMAL BREATHING PATTERN - Cardiovascular Exam Cardiovascular Exam: +S1, +S2 - GI/Abdominal Exam GI & Abdominal Exam: Normal Bowel Sounds - Extremities Exam Extremities exam: Positive for: normal inspection - Neurological Exam Neurological exam: Oriented x3 - Psychiatric Exam Psychiatric exam: Normal Affect, Normal Mood - Skin Skin Exam: Warm Results - Vital Signs Recent Vital Signs: Last Vital Signs Temp 98.4 F 06/02/16 16:00 Pulse 57 L 06/02/16 16:00 Resp 20 06/02/16 16:00 BP 179/90 H 06/02/16 16:00 Pulse Ox 96 06/02/16 16:00 - Labs Result Diagrams: 06/03/16 07:31 06/03/16 07:31 Labs: Laboratory Results - last 24 hr 06/02/16 06/02/16 06/02/16 07:05 07:20 07:20 WBC 11.5 H RBC 4.83 Hgb 12.9 Hct 39.7 MCV 82.1 MCH 26.6 L MCHC 32.4 L RDW 14.3 Plt Count 293 MPV 9.3 Neut % (Auto) 65.9 Lymph % (Auto) 24.6 [place] % (Auto) 7.0 Eos % (Auto) 1.6 Baso % (Auto) 0.9 Neut # 7.6 H Lymph # 2.8 [place] # 0.8 Eos # 0.2 Baso # 0.1 PT 14.9 H INR 1.3 APTT 32 Sodium Potassium Chloride Carbon Dioxide Anion Gap BUN Creatinine Est GFR ( Amer) Est GFR (Non-Af Amer) POC Glucose (mg/dL) 119 H Random Glucose Hemoglobin A1c Calcium Phosphorus Magnesium Total Bilirubin AST ALT Alkaline Phosphatase Total Protein Albumin Globulin Albumin/Globulin Ratio Triglycerides Cholesterol LDL Cholesterol Direct HDL Cholesterol 06/02/16 06/02/16 06/02/16 07:20 07:20 11:21 WBC RBC Hgb Hct MCV MCH MCHC RDW Plt Count MPV Neut % (Auto) Lymph % (Auto) [place] % (Auto) Eos % (Auto) Baso % (Auto) Neut # Lymph # [place] # Eos # Baso # PT INR APTT Sodium 141 Potassium 3.5 L Chloride 102 Carbon Dioxide 26 Anion Gap 17 BUN 29 H Creatinine 1.8 H Est GFR ( Amer) 46 Est GFR (Non-Af Amer) 38 POC Glucose (mg/dL) 99 Random Glucose 120 H Hemoglobin A1c 6.5 Calcium 8.6 Phosphorus 4.5 Magnesium 1.6 Total Bilirubin 1.1 AST 21 ALT 23 Alkaline Phosphatase 57 Total Protein 6.7 Albumin 3.5 Globulin 3.2 Albumin/Globulin Ratio 1.1 Triglycerides 195 H D Cholesterol 194 LDL Cholesterol Direct 107 HDL Cholesterol 28 L 06/02/16 06/02/16 16:42 21:20 WBC RBC Hgb Hct MCV MCH MCHC RDW Plt Count MPV Neut % (Auto) Lymph % (Auto) [place] % (Auto) Eos % (Auto) Baso % (Auto) Neut # Lymph # [place] # Eos # Baso # PT INR APTT Sodium Potassium Chloride Carbon Dioxide Anion Gap BUN Creatinine Est GFR ( Amer) Est GFR (Non-Af Amer) POC Glucose (mg/dL) 121 H 157 H Random Glucose Hemoglobin A1c Calcium Phosphorus Magnesium Total Bilirubin AST ALT Alkaline Phosphatase Total Protein Albumin Globulin Albumin/Globulin Ratio Triglycerides Cholesterol LDL Cholesterol Direct HDL Cholesterol Assessment & Plan (1) Anemia Assessment and Plan: hematuria will check ferritin, retic count, b12, folate to further characterize Status: Acute (2) Renal mass Assessment and Plan: urologic evaluation CT chest with IV contrast when renal function permits Thank you for this interesting consult. Status: Acute
[2016-06-03] MEDS: Sodium Chloride 0.9% 1,000 ML IV SCH (04:50)
[2016-06-03 07:40] LABS: BASO # 0.1 K/uL (0.0-0.2); BASO % 0.6 % (0.0-2.0); EOS # 0.3 K/uL (0.0-0.7); EOS % 2.6 % (0.0-4.0); HEMATOCRIT 38.6 % (35.0-51.0); LYMPH # 2.9 K/uL (1.0-4.3); LYMPH % 28.2 % (20.0-40.0); MEAN CELL VOLUME 81.8 fL (80.0-94.0); MEAN CORPUSCULAR HEMOGLOBIN 26.9 pg (27.0-31.0); MEAN CORPUSCULAR HGB CONC 32.9 g/dL (33.0-37.0); MEAN PLATELET VOLUME 9.2 fL (7.2-11.7); MONO # 0.6 K/uL (0.0-0.8); MONO % 5.4 % (0.0-10.0); RED CELL DISTRIBUTION WIDTH 14.3 % (11.5-14.5); WHITE BLOOD COUNT 10.2 K/uL (4.8-10.8)
[2016-06-03] MEDS: (Novolog) Insulin Aspart, Recombinant 100 u/ml 10 ml vial SC SCH ×4 (07:47→22:14)
[2016-06-03 07:50] LABS: CHLORIDE 103 mmol/L (98-107); POTASSIUM 3.6 mmol/L (3.6-5.2); SODIUM 142 mmol/L (132-148)
[2016-06-03 07:52] LABS: AST/SGOT 21 U/L (17-59); BILIRUBIN,TOTAL 1.2 mg/dL (0.2-1.3); CARBON DIOXIDE 27 mmol/L (22-30); GFR AFRICAN-AMERICAN > 60
[2016-06-03 07:53] LABS: ALB/GLOB RATIO 1.1 (1.0-2.1); ALKALINE PHOSPHATASE 58 U/L (38-126); ALT/SGPT 26 U/L (21-72); BLOOD UREA NITROGEN 22 mg/dL (9-20); CALCIUM 8.5 mg/dl (8.6-10.4); GLUCOSE,RANDOM 118 mg/dL (75-110); PHOSPHOROUS 3.7 mg/dL (2.5-4.5)
[2016-06-03 07:54] LABS: MAGNESIUM 1.7 mg/dL (1.6-2.3)
[2016-06-03] MEDS ORDERED: Pneumococcal 23-Valent Vaccine IM ONE (09:02)
[2016-06-03] MEDS: cefTRIAXone IV 1 gm in Dextros 50 ML IVPB SCH ×2 (10:03→22:09)
[2016-06-03] MEDS ORDERED: Potassium Chloride 20 mEq ER Tab PO ONE (12:15)
--- NOTE | 2016-06-03 13:24 | CP.PCM.PN ---
<Yael Jackson - Last Filed: 06/03/16 13:34> Subjective - Date & Time of Evaluation Date of Evaluation: 06/03/16 Time of Evaluation: 08:00 - Subjective Subjective: Medicine Progress Note- Dr. Simpson's Service: Patient seen and examined at bedside this AM. Patient admits to feeling constipated this morning. He admits to one episode of dark brown urine yesterday , no clots or bright red blood. No pain at this time and no acute events overnight. Denies fevers, chills, nausea, vomiting, diarrhea, headache. Objective - Vital Signs/Intake and Output Vital Signs (last 24 hours): Temp Pulse Resp BP Pulse Ox 98.1 F 56 L 20 168/89 H 94 L 06/03/16 08:00 06/03/16 08:00 06/03/16 08:00 06/03/16 08:00 06/03/16 08:00 Intake and Output: 06/03/16 06/03/16 06:59 18:59 Intake Total 1400 Output Total 400 Balance 1000 - Medications Medications: Current Medications Amlodipine Besylate (Norvasc) 10 mg PO DAILY [facility] Last Admin: 06/03/16 10:04 Dose: 10 mg Ceftriaxone Sodium (Rocephin Iv 1 Gm Duplex) 50 mls @ 100 mls/hr IVPB Q12 [facility] Last Admin: 06/03/16 10:03 Dose: 100 mls/hr Sodium Chloride (Sodium Chloride 0.9%) 1,000 mls @ 75 mls/hr IV .[id number] [facility] Last Admin: 06/03/16 04:50 Dose: 75 mls/hr Insulin Aspart (Novolog) 0 unit SC ACHS [facility] PRN Reason: Protocol Last Admin: 06/03/16 12:17 Dose: Not Given Losartan Potassium (Cozaar) 25 mg PO DAILY [facility] Last Admin: 06/03/16 10:04 Dose: 25 mg Pantoprazole Sodium (Protonix Inj) 40 mg IVP DAILY [facility] Last Admin: 06/03/16 10:04 Dose: 40 mg - Labs Labs: 06/03/16 07:31 06/03/16 07:31 PT 14.9 SECONDS (9.7-12.2) H 06/02/16 07:20 INR 1.3 06/02/16 07:20 APTT 32 SECONDS (21-34) 06/02/16 07:20 - Constitutional Appears: No Acute Distress - Head Exam Head Exam: NORMAL INSPECTION, NORMOCEPHALIC - Eye Exam Eye Exam: EOMI, Normal appearance - ENT Exam ENT Exam: Mucous Membranes Moist - Neck Exam Neck Exam: Full ROM - Respiratory Exam Respiratory Exam: Clear to Ausculation Bilateral, NORMAL BREATHING PATTERN - Cardiovascular Exam Cardiovascular Exam: REGULAR RHYTHM, +S1, +S2 - GI/Abdominal Exam GI & Abdominal Exam: Soft. absent: Distended, Tenderness - Extremities Exam Extremities Exam: Full ROM, Normal Inspection - Back Exam Back Exam: NORMAL INSPECTION - Neurological Exam Neurological Exam: Alert, Awake, Oriented x3 - Psychiatric Exam Psychiatric exam: Normal Affect, Normal Mood - Skin Skin Exam: Dry, Normal Color, Warm Assessment and Plan - Assessment and Plan (Free Text) Assessment: Renal mass Assessment and Plan: * CT imaging (06/01/16): 9.5 X7.1X5.9 cm heterogenous solid lesion noted on US and CT scan in the left kidney. Possible solid renal cell carcinoma with internal necrotic and/or hemorrhagic components. interval enlargment of the lesion with prominent peripheric fat stranding and fluid surroudnging left kidney. Possible cute hemorrhage. * Pelvic US- 8.5 cm left upper pole renal mass noted on prior December 2015 imaging as well. No significant post-void residual within urinary bladder. F/U report * Consult to Urology Dr. Garcia- F/U plan * Consult to Heme/Onc- Dr. Morris- F/U plan * Routine EKG ( sinus bhargavi w/o symptoms), Chest xray no active signs of disease , coags ordered in case pre-op clearance needed. * Hold NSAIDs Status: Acute Dysuria Assessment and Plan: * Rocephin 1 gram IV q 12 hours * F/u urine culture * CT imaging (06/01/16): 9.5 X7.1X5.9 cm heterogenous solid lesion noted on US and CT scan in the left kidney. Possible solid renal cell carcinoma with internal necrotic and/or hemorrhagic components. interval enlargment of the lesion with prominent peripheric fat stranding and fluid surroudnging left kidney. Possible cute hemorrhage Hypertension Assessment and Plan: * 168/89 this AM. Will D/C IVF today. * Home beta nick meds held due to dec HR. * Losartan 25 mg /Amlodpine 10 mg PO daily Status: Chronic [place] (acute kidney injury) Assessment and Plan: * Will D/C IVF today since BP remains elevated * BUN/Cr mildly elevated on admission likely due to dehydration and post renal secondary to renal tumor. Cr down to 1.3 today. Status: Acute Hematuria Assessment and Plan: * One episode 4 days prior * UA positive for blood * US results as mentioned above * Hold NSAIDs at this time due to risk of further bleed * Hgb stable Status: Acute Diabetes mellitus Assessment and Plan: * ISS, Metformin held * Accuchecks ACHS * HgbA1c 6.5, Lipid panel Status: Chronic Leukocytosis Assessment and Plan: * Resolved- 10.2 today. * UCx negative * IV abx: Rocephin 1 gram IV Q 12hours Status: Acute Hx of gout Assessment and Plan: f/u uric acid Hold home NSAIDs at this time Prophylactic measure Assessment and Plan: * SCDs * VTE contraindicated due to genitourinary bleed * Protonix 40mg IV q daily <Eugene Simpson - Last Filed: 06/05/16 07:39> Objective - Vital Signs/Intake and Output Vital Signs (last 24 hours): Temp Pulse Resp BP Pulse Ox 97.9 F 74 20 158/92 H 98 06/05/16 00:00 06/05/16 00:00 06/05/16 00:00 06/05/16 00:00 06/05/16 00:00 - Medications Medications: Current Medications Amlodipine Besylate (Norvasc) 10 mg PO DAILY [facility] Last Admin: 06/04/16 10:05 Dose: 10 mg Ceftriaxone Sodium (Rocephin Iv 1 Gm Duplex) 50 mls @ 100 mls/hr IVPB Q12 [facility] Last Admin: 06/04/16 22:11 Dose: 100 mls/hr Insulin Aspart (Novolog) 0 unit SC ACHS [facility] PRN Reason: Protocol Last Admin: 06/04/16 22:08 Dose: Not Given Losartan Potassium (Cozaar) 50 mg PO BID [facility] Last Admin: 06/04/16 17:42 Dose: 50 mg Pantoprazole Sodium (Protonix Inj) 40 mg IVP DAILY [facility] Last Admin: 06/04/16 10:04 Dose: 40 mg - Labs Labs: 06/04/16 06:52 06/04/16 06:52 PT 14.9 SECONDS (9.7-12.2) H 06/02/16 07:20 INR 1.3 06/02/16 07:20 APTT 32 SECONDS (21-34) 06/02/16 07:20 Attending/Attestation - Attestation I have personally seen and examined this patient.: Yes I have fully participated in the care of the patient.: Yes I have reviewed all pertinent clinical information, including history, physical exam and plan: Yes Notes (Text): Patient was seen and examined by me. Agree with the above note by the resident, we saw patient together. The patient was not in any pain or acute distress when we saw and examined the patient. Currently on IV rocephin at this time Per discussion with residents and review of imaging and notes, the concern is a renal mass at this time. It may need to come out as there is concern this could be a left renal maligancy. The imaging 9 X 7 X 6 area mass Eugene Simpson
[2016-06-03] MEDS ORDERED: POLYETHYLENE GLYCOL 3350 17 GM/Dose PACKET PO ONE (13:34)
--- NOTE | 2016-06-03 23:36 | CON ---
DATE: 06/03/2016 UROLOGY CONSULTATION Urology consultation requested by Dr. Philomena Coleman. Urology consultation filled by Dr. Louisa Garcia. REASON FOR CONSULTATION: Hematuria. Renal mass. HISTORY OF PRESENT ILLNESS: The patient is a 66-year-old male with a renal mass. The patient is in otherwise fair health. The patient has history of hypertension and diabetes. The patient was currently admitted with abdominal pain and hematuria. The patient was found to have a renal tumor in March. The patient had an episode of hematuria and urinary retention in January. He had a [place] catheter inserted at that time. Since then, the patient has been voiding better. The patient had a CT scan, in fact, performed in 2015, which revealed the renal tumor. The patient has been treated with Flomax. The patient's other medications have included amlodipine, metformin, allopurinol, valsartan, atenolol. The patient had weak urinary stream. He also was treated with Flomax. The patient previously had a bone scan performed last month, which revealed no evidence of metastatic disease. The patient has had no previous surgery. He lives alone. The patient is retired. The patient does not smoke. PHYSICAL EXAMINATION: GENERAL: The patient is a well-developed, well-nourished elderly male. ABDOMEN: Soft, nontender, mildly distended. The patient is overweight. BACK: No CVA tenderness. GENITALIA: Without inflammation. 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 The patient has history of diabetes and hyp ertension. RECOMMENDATIONS AND PLAN: Review old records. The patient will require surgery for his left renal t umor. Further therapy to follow. Will discuss with you regarding scheduling of further care. Louisa Garcia MD cc: [id number] TT: 06/03/2016 23:35:37 Confirmation # [id number] Dictation # [id number] terry
--- NOTE | 2016-06-04 01:34 | CP.PCM.PN ---
Subjective - Date & Time of Evaluation Date of Evaluation: 06/03/16 Time of Evaluation: 17:10 - Subjective Subjective: No complaints. Objective - Vital Signs/Intake and Output Vital Signs (last 24 hours): Temp Pulse Resp BP Pulse Ox 98.3 F 65 20 163/91 H 98 06/04/16 00:00 06/04/16 00:00 06/04/16 00:00 06/04/16 00:00 06/04/16 00:00 Intake and Output: 06/03/16 06/04/16 18:59 06:59 Intake Total 950 250 Balance 950 250 - Medications Medications: Current Medications Amlodipine Besylate (Norvasc) 10 mg PO DAILY [facility] Last Admin: 06/03/16 10:04 Dose: 10 mg Ceftriaxone Sodium (Rocephin Iv 1 Gm Duplex) 50 mls @ 100 mls/hr IVPB Q12 [facility] Last Admin: 06/03/16 22:09 Dose: 100 mls/hr Insulin Aspart (Novolog) 0 unit SC ACHS [facility] PRN Reason: Protocol Last Admin: 06/03/16 22:14 Dose: Not Given Losartan Potassium (Cozaar) 25 mg PO DAILY [facility] Last Admin: 06/03/16 10:04 Dose: 25 mg Pantoprazole Sodium (Protonix Inj) 40 mg IVP DAILY [facility] Last Admin: 06/03/16 10:04 Dose: 40 mg - Labs Labs: 06/03/16 07:31 06/03/16 07:31 PT 14.9 SECONDS (9.7-12.2) H 06/02/16 07:20 INR 1.3 06/02/16 07:20 APTT 32 SECONDS (21-34) 06/02/16 07:20 - Head Exam Head Exam: ATRAUMATIC - Eye Exam Eye Exam: Normal appearance - ENT Exam ENT Exam: Mucous Membranes Dry - Respiratory Exam Respiratory Exam: NORMAL BREATHING PATTERN - Cardiovascular Exam Cardiovascular Exam: +S1, +S2 - GI/Abdominal Exam GI & Abdominal Exam: Normal Bowel Sounds - Extremities Exam Extremities Exam: Normal Inspection Assessment and Plan (1) Anemia Assessment & Plan: hematuria f/u anemia w/u Status: Acute (2) Renal mass Assessment & Plan: urology f/u CT chest with IV contrast when renal function permits Status: Acute
[2016-06-04 07:12] LABS: BASO # 0.1 K/uL (0.0-0.2); BASO % 0.6 % (0.0-2.0); EOS # 0.2 K/uL (0.0-0.7); EOS % 2.2 % (0.0-4.0); HEMATOCRIT 39.8 % (35.0-51.0); LYMPH % 27.1 % (20.0-40.0); MEAN CELL VOLUME 81.4 fL (80.0-94.0); MEAN CORPUSCULAR HEMOGLOBIN 26.8 pg (27.0-31.0); MEAN CORPUSCULAR HGB CONC 32.9 g/dL (33.0-37.0); MONO # 0.6 K/uL (0.0-0.8); MONO % 5.5 % (0.0-10.0); RED CELL DISTRIBUTION WIDTH 14.5 % (11.5-14.5)
[2016-06-04] MEDS: (Novolog) Insulin Aspart, Recombinant 100 u/ml 10 ml vial SC SCH ×4 (07:29→22:08)
[2016-06-04 07:30] LABS: CHLORIDE 102 mmol/L (98-107); POTASSIUM 3.6 mmol/L (3.6-5.2); SODIUM 142 mmol/L (132-148)
[2016-06-04 07:32] LABS: ALB/GLOB RATIO 1.2 (1.0-2.1); ALKALINE PHOSPHATASE 59 U/L (38-126); ALT/SGPT 29 U/L (21-72); AST/SGOT 23 U/L (17-59); BLOOD UREA NITROGEN 22 mg/dL (9-20); CARBON DIOXIDE 27 mmol/L (22-30); GFR AFRICAN-AMERICAN > 60; GLUCOSE,RANDOM 119 mg/dL (75-110); TOTAL PROTEIN 7.3 g/dL (6.3-8.3)
[2016-06-04 07:33] LABS: MAGNESIUM 1.9 mg/dL (1.6-2.3); PHOSPHOROUS 3.7 mg/dL (2.5-4.5)
[2016-06-04 08:24] LABS: FOLATE 10.8 ng/mL
[2016-06-04] MEDS: cefTRIAXone IV 1 gm in Dextros 50 ML IVPB SCH ×2 (10:03→22:11)
[2016-06-04] MEDS ORDERED: Magnesium Citrate Oral SOL (300 ml) PO ONE (13:18)
--- NOTE | 2016-06-04 13:19 | CP.PCM.PN ---
Subjective - Date & Time of Evaluation Date of Evaluation: 06/04/16 Time of Evaluation: 08:30 - Subjective Subjective: Medical Attending Note Follow-up: Renal Mass, Leukocytosis, Acute Kidney Injury, Diabetes, Uncontrolled hypertension, Constipation Patient seen and examined at bedside. Patient reports he has not had a bowel movements in many days and feels constipated. Patient reports he had a mild headache yesterday but is gone today. Denies other acute complaints. Objective - Vital Signs/Intake and Output Vital Signs (last 24 hours): Temp Pulse Resp BP Pulse Ox 98.2 F 58 L 20 167/96 H 97 06/04/16 07:08 06/04/16 07:08 06/04/16 07:08 06/04/16 07:08 06/04/16 07:08 Intake and Output: 06/04/16 06/04/16 06:59 18:59 Intake Total 500 Balance 500 - Medications Medications: Current Medications Amlodipine Besylate (Norvasc) 10 mg PO DAILY [facility] Last Admin: 06/04/16 10:05 Dose: 10 mg Ceftriaxone Sodium (Rocephin Iv 1 Gm Duplex) 50 mls @ 100 mls/hr IVPB Q12 [facility] Last Admin: 06/04/16 10:03 Dose: 100 mls/hr Insulin Aspart (Novolog) 0 unit SC ACHS [facility] PRN Reason: Protocol Last Admin: 06/04/16 11:27 Dose: Not Given Losartan Potassium (Cozaar) 50 mg PO DAILY [facility] Last Admin: 06/04/16 10:04 Dose: 50 mg Magnesium Citrate (Citrate Of Mag) 300 ml PO ONCE ONE Stop: 06/04/16 13:19 Pantoprazole Sodium (Protonix Inj) 40 mg IVP DAILY [facility] Last Admin: 06/04/16 10:04 Dose: 40 mg - Labs Labs: 06/04/16 06:52 06/04/16 06:52 PT 14.9 SECONDS (9.7-12.2) H 06/02/16 07:20 INR 1.3 06/02/16 07:20 APTT 32 SECONDS (21-34) 06/02/16 07:20 - Constitutional Appears: Non-toxic, No Acute Distress - Head Exam Head Exam: NORMAL INSPECTION - Eye Exam Eye Exam: EOMI - ENT Exam ENT Exam: Mucous Membranes Moist - Respiratory Exam Respiratory Exam: Clear to Ausculation Bilateral, NORMAL BREATHING PATTERN. absent: Rales, Rhonchi, Wheezes - Cardiovascular Exam Cardiovascular Exam: REGULAR RHYTHM, +S1, +S2 - GI/Abdominal Exam GI & Abdominal Exam: Soft, Normal Bowel Sounds. absent: Distended, Firm, Guarding, Rigid, Tenderness, Rebound - Extremities Exam Extremities Exam: absent: Pedal Edema, Tenderness - Back Exam Back Exam: absent: CVA tenderness (L), CVA tenderness (R) - Neurological Exam Neurological Exam: Alert, Awake, Oriented x3 - Psychiatric Exam Psychiatric exam: Normal Affect, Normal Mood - Skin Skin Exam: Dry, Intact, Normal Color, Warm Assessment and Plan (1) Renal mass Status: Acute (2) Hematuria Status: Acute (3) [place] (acute kidney injury) Status: Acute (4) Diabetes mellitus Status: Chronic (5) Constipation Status: Acute (6) Hypertension Status: Chronic (7) Leukocytosis Status: Acute (8) Prophylactic measure Status: Acute Attending/Attestation - Attestation I have personally seen and examined this patient.: Yes I have fully participated in the care of the patient.: Yes I have reviewed all pertinent clinical information, including history, physical exam and plan: Yes Notes (Text): Patient seen, examined, and case discussed with day-time resident. Blood pressure uncontrolled-->adjust Cozaar 50mg PO bid and discontinued IV fluids Patient is constipated, has not had a bowel movement, and this afternoon reporting flatus and given Mag Citrate PO X1. Follow-up with urology and heme-onc Bladder PRN and f/u EKG Assessment & Plan (1) Renal mass Assessment and Plan: * CT imaging (06/01/16): 9.5 X7.1X5.9 cm heterogenous solid lesion noted on US and CT scan in the left kidney. Possible solid renal cell carcinoma with internal necrotic and/or hemorrhagic components. interval enlargment of the lesion with prominent peripheric fat stranding and fluid surroudnging left kidney. Possible cute hemorrhage. * Pelvic US- F/U report * Consult to Urology Dr. Leta Garcia- help appreciated * Routine EKG, Chest xray, coags ordered in case pre-op clearance needed. * Hold NSAIDs * Urine culture (06/01/16): No growth * Blood culture (06/02/16): No growth X48 hours Status: Acute (2) Dysuria Assessment and Plan: * Rocephin 1 gram IV q 12 hours (active since 06/02/16) * Urine culture (06/01/16): no growth * CT imaging (06/01/16): 9.5 X7.1X5.9 cm heterogenous solid lesion noted on US and CT scan in the left kidney. Possible solid renal cell carcinoma with internal necrotic and/or hemorrhagic components. interval enlargement of the lesion with prominent peripheric fat stranding and fluid surroudnging left kidney. Possible cute hemorrhage * Follow-up with urology (3) Hypertension Assessment and Plan: * Uncontrolled * Home beta nick meds held due to dec HR. * Norvasc 10mg PO daily * Start Cozaar 50mg PO bid * Monitor blood pressure and adjust bp meds Status: Chronic (4) [place] (acute kidney injury) Assessment and Plan: * Off IV fluids * CT imaging (06/01/16): 9.5 X7.1X5.9 cm heterogenous solid lesion noted on US and CT scan in the left kidney. Possible solid renal cell carcinoma with internal necrotic and/or hemorrhagic components. interval enlargement of the lesion with prominent peripheric fat stranding and fluid surroudnging left kidney. Possible cute hemorrhage * Pelvic US (06/02/16): 8.5 cm left upper pole renal mass, demonstrated on CT examination, No significant post void residual within urinary bladder * Bladder PRN Status: Acute (5) Hematuria Assessment and Plan: * One episode 4 days prior * UA positive for blood * Urine culture shows no growth * CT imaging (06/01/16): 9.5 X7.1X5.9 cm heterogenous solid lesion noted on US and CT scan in the left kidney. Possible solid renal cell carcinoma with internal necrotic and/or hemorrhagic components. interval enlargement of the lesion with prominent peripheric fat stranding and fluid surroudnging left kidney. Possible cute hemorrhage * Pelvic US (06/02/16): 8.5 cm left upper pole renal mass, demonstrated on CT examination, No significant post void residual within urinary bladder * F/U Urology * Hold NSAIDs at this time due to risk of further bleed * Hgb stable Status: Acute (6) Diabetes mellitus Assessment and Plan: * NISS, Metformin held * Accuchecks QAC and HS * HgbA1c: 6.5 controlled Status: Chronic (7) Leukocytosis Assessment and Plan: * Urine culture (06/01/16): No growth * Blood culture (06/02/16): No growth X48 hours * Chest xray (05/2716): mild venous congestion * IV abx: Rocephin 1 gram IV Q 12hours Status: Acute (8) Prophylactic measure Assessment and Plan: * SCDs * VTE contraindicated due to genitourinary bleed * Protonix 40mg IV q daily Status: Acute
--- NOTE | 2016-06-04 21:53 | CP.PCM.PN ---
Subjective - Date & Time of Evaluation Date of Evaluation: 06/04/16 Time of Evaluation: 16:10 - Subjective Subjective: Feels constipated Objective - Vital Signs/Intake and Output Vital Signs (last 24 hours): Temp Pulse Resp BP Pulse Ox 98.4 F 61 20 160/94 H 96 06/04/16 15:25 06/04/16 15:25 06/04/16 15:25 06/04/16 15:25 06/04/16 15:25 Intake and Output: 06/04/16 06/05/16 18:59 06:59 Intake Total 400 Balance 400 - Medications Medications: Current Medications Amlodipine Besylate (Norvasc) 10 mg PO DAILY [facility] Last Admin: 06/04/16 10:05 Dose: 10 mg Ceftriaxone Sodium (Rocephin Iv 1 Gm Duplex) 50 mls @ 100 mls/hr IVPB Q12 [facility] Last Admin: 06/04/16 10:03 Dose: 100 mls/hr Insulin Aspart (Novolog) 0 unit SC ACHS [facility] PRN Reason: Protocol Last Admin: 06/04/16 17:43 Dose: Not Given Losartan Potassium (Cozaar) 50 mg PO BID [facility] Last Admin: 06/04/16 17:42 Dose: 50 mg Pantoprazole Sodium (Protonix Inj) 40 mg IVP DAILY [facility] Last Admin: 06/04/16 10:04 Dose: 40 mg - Labs Labs: 06/04/16 06:52 06/04/16 06:52 PT 14.9 SECONDS (9.7-12.2) H 06/02/16 07:20 INR 1.3 06/02/16 07:20 APTT 32 SECONDS (21-34) 06/02/16 07:20 - Head Exam Head Exam: ATRAUMATIC - Eye Exam Eye Exam: Normal appearance - ENT Exam ENT Exam: Mucous Membranes Dry - Respiratory Exam Respiratory Exam: NORMAL BREATHING PATTERN - Cardiovascular Exam Cardiovascular Exam: +S1, +S2 - GI/Abdominal Exam GI & Abdominal Exam: Normal Bowel Sounds - Extremities Exam Extremities Exam: Normal Inspection Assessment and Plan (1) Renal mass Assessment & Plan: urologic evaluation recommend CT Chest with IV contrast when renal function normalizes to complete staging Status: Acute (2) Anemia Status: Acute
[2016-06-05 08:18] LABS: BASO # 0.1 K/uL (0.0-0.2); BASO % 0.7 % (0.0-2.0); EOS # 0.1 K/uL (0.0-0.7); EOS % 1.1 % (0.0-4.0); LYMPH # 2.1 K/uL (1.0-4.3); LYMPH % 18.5 % (20.0-40.0); MEAN CELL VOLUME 82.6 fL (80.0-94.0); MEAN CORPUSCULAR HEMOGLOBIN 26.9 pg (27.0-31.0); MEAN CORPUSCULAR HGB CONC 32.6 g/dL (33.0-37.0); MEAN PLATELET VOLUME 9.2 fL (7.2-11.7); MONO # 0.5 K/uL (0.0-0.8); MONO % 4.3 % (0.0-10.0); RED CELL DISTRIBUTION WIDTH 14.5 % (11.5-14.5); WHITE BLOOD COUNT 11.2 K/uL (4.8-10.8)
[2016-06-05] MEDS: (Novolog) Insulin Aspart, Recombinant 100 u/ml 10 ml vial SC SCH ×4 (08:31→21:26)
[2016-06-05 08:40] LABS: CHLORIDE 100 mmol/L (98-107); POTASSIUM 3.6 mmol/L (3.6-5.2); SODIUM 143 mmol/L (132-148)
[2016-06-05 08:42] LABS: BILIRUBIN,TOTAL 1.9 mg/dL (0.2-1.3); GFR AFRICAN-AMERICAN > 60
[2016-06-05 08:43] LABS: ALB/GLOB RATIO 1.2 (1.0-2.1); ALKALINE PHOSPHATASE 70 U/L (38-126); ALT/SGPT 27 U/L (21-72); AST/SGOT 27 U/L (17-59); BLOOD UREA NITROGEN 19 mg/dL (9-20); CARBON DIOXIDE 29 mmol/L (22-30); GLUCOSE,RANDOM 117 mg/dL (75-110); PHOSPHOROUS 3.3 mg/dL (2.5-4.5)
[2016-06-05 08:44] LABS: CALCIUM 9.3 mg/dl (8.6-10.4); MAGNESIUM 2.1 mg/dL (1.6-2.3)
[2016-06-05] MEDS: cefTRIAXone IV 1 gm in Dextros 50 ML IVPB SCH ×2 (12:13→21:08)
--- NOTE | 2016-06-05 12:19 | CP.PCM.PN ---
<AdelaideAnish domínguez - Last Filed: 06/05/16 15:36> Subjective - Date & Time of Evaluation Date of Evaluation: 06/05/16 Time of Evaluation: 06:25 - Subjective Subjective: PGY 1 Medicine Note- Dr. Coleman's service Pt seen and examined in no acute distress. Patient states that he is nto currently experiencing abdominal pain. Patient had two formed bowel movements after previously being constipated. Patient's blood pressure is still elevated. Patient denies any subjective fevers, chills, abdominal pain, nausea, vomiting, diarrhea or constipation at this time. Objective - Vital Signs/Intake and Output Vital Signs (last 24 hours): Temp Pulse Resp BP Pulse Ox 98.2 F 78 20 183/92 H 96 06/05/16 09:46 06/05/16 09:46 06/05/16 09:46 06/05/16 09:46 06/05/16 09:46 - Medications Medications: Current Medications Amlodipine Besylate (Norvasc) 10 mg PO DAILY [facility] Last Admin: 06/05/16 12:08 Dose: 10 mg Atenolol (Tenormin) 25 mg PO DAILY [facility] Ceftriaxone Sodium (Rocephin Iv 1 Gm Duplex) 50 mls @ 100 mls/hr IVPB Q12 [facility] Last Admin: 06/05/16 12:13 Dose: 100 mls/hr Insulin Aspart (Novolog) 0 unit SC ACHS [facility] PRN Reason: Protocol Last Admin: 06/05/16 08:31 Dose: Not Given Losartan Potassium (Cozaar) 50 mg PO BID [facility] Last Admin: 06/05/16 12:08 Dose: 50 mg Magnesium Citrate (Citrate Of Mag) 300 ml PO ONCE ONE Stop: 06/05/16 20:01 Pantoprazole Sodium (Protonix Inj) 40 mg IVP DAILY [facility] Last Admin: 06/05/16 12:08 Dose: 40 mg - Labs Labs: 06/05/16 08:09 06/05/16 08:09 PT 14.9 SECONDS (9.7-12.2) H 06/02/16 07:20 INR 1.3 06/02/16 07:20 APTT 32 SECONDS (21-34) 06/02/16 07:20 - Constitutional Appears: Non-toxic, No Acute Distress - Head Exam Head Exam: ATRAUMATIC, NORMAL INSPECTION, NORMOCEPHALIC - Eye Exam Eye Exam: EOMI, Normal appearance, PERRL Pupil Exam: NORMAL ACCOMODATION, PERRL - ENT Exam ENT Exam: Mucous Membranes Moist - Neck Exam Neck Exam: Full ROM - Respiratory Exam Respiratory Exam: NORMAL BREATHING PATTERN. absent: Wheezes - Cardiovascular Exam Cardiovascular Exam: +S1, +S2 - GI/Abdominal Exam GI & Abdominal Exam: Soft, Normal Bowel Sounds - Extremities Exam Extremities Exam: Full ROM, Normal Capillary Refill, Normal Inspection - Back Exam Back Exam: Full ROM - Neurological Exam Neurological Exam: Alert, Awake, Oriented x3 - Psychiatric Exam Psychiatric exam: Normal Affect, Normal Mood - Skin Skin Exam: Dry, Intact, Normal Color, Warm Assessment and Plan (1) Abdominal pain Status: Acute (2) Renal mass Status: Acute (3) Hypertension Status: Chronic (4) [place] (acute kidney injury) Status: Acute (5) Hematuria Status: Acute (6) Diabetes mellitus Status: Chronic (7) Prophylactic measure Status: Acute - Assessment and Plan (Free Text) Assessment: (1) Renal mass Assessment and Plan: * CT imaging (06/01/16): 9.5 X7.1X5.9 cm heterogenous solid lesion noted on US and CT scan in the left kidney. Possible solid renal cell carcinoma with internal necrotic and/or hemorrhagic components. interval enlargement of the lesion with prominent peripheric fat stranding and fluid surrounding left kidney. Possible cute hemorrhage. * Pelvic US- F/U report * Consult to Urology Dr. Leta Garcia- Surgical procedure in the AM. Pre-op work ordered. * Mag citrate, Currently on Clear liquid diet; NPO past MN with exception for medications ( BP) with a small sip of doctor * Dr. Clinton referral per Dr. Garcia- F/U * Routine EKG, Chest xray, coags ordered in case pre-op clearance needed. * Hold NSAIDs * Urine culture (06/01/16): No growth * Blood culture (06/02/16): No growth X48 hours Status: Acute (2) Dysuria Assessment and Plan: * Rocephin 1 gram IV q 12 hours (active since 06/02/16) * Urine culture (06/01/16): no growth * CT imaging (06/01/16): 9.5 X7.1X5.9 cm heterogenous solid lesion noted on US and CT scan in the left kidney. Possible solid renal cell carcinoma with internal necrotic and/or hemorrhagic components. interval enlargement of the lesion with prominent peripheric fat stranding and fluid surroudnging left kidney. Possible cute hemorrhage * Follow-up with urology (3) Hypertension Assessment and Plan: * Uncontrolled * Atenolol, Amlodipine, Apresoline added on. HR improved; however continue to monitor * Monitor blood pressure and adjust bp meds * F/U echo Status: Chronic (4) [place] (acute kidney injury) Assessment and Plan: * Off IV fluids * CT imaging (06/01/16): 9.5 X7.1X5.9 cm heterogenous solid lesion noted on US and CT scan in the left kidney. Possible solid renal cell carcinoma with internal necrotic and/or hemorrhagic components. interval enlargement of the lesion with prominent peripheric fat stranding and fluid surroudnging left kidney. Possible cute hemorrhage * Pelvic US (06/02/16): 8.5 cm left upper pole renal mass, demonstrated on CT examination, No significant post void residual within urinary bladder * Bladder PRN Status: Acute (5) Hematuria Assessment and Plan: * One episode 4 days prior to admission which appears to have resolved. * UA on admission positive for blood * Urine culture shows no growth * CT imaging (06/01/16): 9.5 X7.1X5.9 cm heterogenous solid lesion noted on US and CT scan in the left kidney. Possible solid renal cell carcinoma with internal necrotic and/or hemorrhagic components. interval enlargement of the lesion with prominent peripheric fat stranding and fluid surrounding left kidney. Possible cute hemorrhage * Pelvic US (06/02/16): 8.5 cm left upper pole renal mass, demonstrated on CT examination, No significant post void residual within urinary bladder * F/U Urology * Hold NSAIDs at this time due to risk of further bleed * Hgb stable Status: Acute (6) Diabetes mellitus Assessment and Plan: * NISS, Metformin held * Accuchecks QAC and HS * HgbA1c: 6.5 controlled Status: Chronic (7) Leukocytosis Assessment and Plan: * Urine culture (06/01/16): No growth * Blood culture (06/02/16): No growth X48 hours * Chest xray (05/2716): mild venous congestion * IV abx: Rocephin 1 gram IV Q 12hours Status: Acute (8) Prophylactic measure Assessment and Plan: * SCDs * VTE contraindicated due to genitourinary bleed * Protonix 40mg IV q daily Status: Acute <Philomena Coleman V - Last Filed: 06/05/16 23:59> Objective - Vital Signs/Intake and Output Vital Signs (last 24 hours): Temp Pulse Resp BP Pulse Ox 98.5 F 59 L 20 163/87 H 94 L 06/05/16 15:25 06/05/16 15:25 06/05/16 15:25 06/05/16 15:25 06/05/16 15:25 Intake and Output: 06/05/16 06/06/16 18:59 06:59 Intake Total 150 450 Balance 150 450 - Medications Medications: Current Medications Amlodipine Besylate (Norvasc) 10 mg PO DAILY [facility] Last Admin: 06/05/16 12:08 Dose: 10 mg Hydralazine HCl (Apresoline) 25 mg PO STAT STA Stop: 06/05/16 23:47 Hydralazine HCl (Apresoline) 50 mg PO Q8 [facility] Ceftriaxone Sodium (Rocephin Iv 1 Gm Duplex) 50 mls @ 100 mls/hr IVPB Q12 [facility] Last Admin: 06/05/16 21:08 Dose: 100 mls/hr Insulin Aspart (Novolog) 0 unit SC ACHS [facility] PRN Reason: Protocol Last Admin: 06/05/16 21:26 Dose: Not Given Pantoprazole Sodium (Protonix Inj) 40 mg IVP DAILY [facility] Last Admin: 06/05/16 12:08 Dose: 40 mg Saccharomyces Boulardii (Florastor) 250 mg PO BID [facility] Last Admin: 06/05/16 17:39 Dose: 250 mg - Labs Labs: 06/05/16 08:09 06/05/16 08:09 PT 14.9 SECONDS (9.7-12.2) H 06/02/16 07:20 INR 1.3 06/02/16 07:20 APTT 32 SECONDS (21-34) 06/02/16 07:20 Assessment and Plan (1) Renal mass Status: Acute (2) Hematuria Status: Acute (3) [place] (acute kidney injury) Status: Acute (4) Diabetes mellitus Status: Chronic (5) Constipation Status: Acute (6) Hypertension Status: Chronic (7) Leukocytosis Status: Acute (8) Prophylactic measure Status: Acute Attending/Attestation - Attestation I have personally seen and examined this patient.: Yes I have fully participated in the care of the patient.: Yes I have reviewed all pertinent clinical information, including history, physical exam and plan: Yes Notes (Text): Patient seen, examined, and case discussed with day-time resident. Blood pressure uncontrolled-->D/c Cozaar, and start on Hydralazine 25mg PO Q 8hours-->titrate up to Hydralazine 50mg PO Q 8 hours and started on Atentol Patient has had 2 bowel movements this morning. Nephrology (Dr. Workman) consulted; patient's joint cutter machine; discussed case with him, recommended to stop Cozaar, and start Hydralazine Case discussed with Leta Garcia, patient to be NPO tonight for urologic intervention tomorrow. Per Detsky's criteria, patient has low cardiac risk for noncardiac surgery. Pending echocardiogram-->report not available. Will attempt to medically optimize blood pressure. Assessment & Plan (1) Renal mass Assessment and Plan: * CT imaging (06/01/16): 9.5 X7.1X5.9 cm heterogenous solid lesion noted on US and CT scan in the left kidney. Possible solid renal cell carcinoma with internal necrotic and/or hemorrhagic components. interval enlargment of the lesion with prominent peripheric fat stranding and fluid surroudnging left kidney. Possible acute hemorrhage. * Pelvic US (06/02/16): 8.5 cm left upper pole renal mass, demonstrated on CT examination, No significant post void residual within urinary bladder * Consult to Urology Dr. Ltea Garcia- help appreciated * Consult Nephrology Dr. Ojeda-help appreciated * EKG (06/04/16): NSR * Chest xray: mild venous congestion * Hold NSAIDs * Urine culture (06/01/16): No growth * Blood culture (06/02/16): No growth X 3days * Patient is NPO for urologic procedure tomorrow 06/06/16 Status: Acute (2) Dysuria Assessment and Plan: * Rocephin 1 gram IV q 12 hours (active since 06/02/16) * Urine culture (06/01/16): no growth * CT imaging (06/01/16): 9.5 X7.1X5.9 cm heterogenous solid lesion noted on US and CT scan in the left kidney. Possible solid renal cell carcinoma with internal necrotic and/or hemorrhagic components. interval enlargement of the lesion with prominent peripheric fat stranding and fluid surroudnging left kidney. Possible acute hemorrhage * Urine culture (06/01/16): No growth * Patient is NPO for urologic procedure tomorrow 06/06/16 (3) Hypertension Assessment and Plan: * Uncontrolled * Norvasc 10mg PO daily * Atenolol 25mg PO daily * Hydralazine 50mg PO Q 8 hours * Monitor blood pressure and adjust bp meds Status: Chronic (4) [place] (acute kidney injury) Assessment and Plan: * CT imaging (06/01/16): 9.5 X7.1X5.9 cm heterogenous solid lesion noted on US and CT scan in the left kidney. Possible solid renal cell carcinoma with internal necrotic and/or hemorrhagic components. interval enlargement of the lesion with prominent peripheric fat stranding and fluid surroudnging left kidney. Possible cute hemorrhage * Pelvic US (06/02/16): 8.5 cm left upper pole renal mass, demonstrated on CT examination, No significant post void residual within urinary bladder * Bladder PRN * Consult to Urology Dr. Leta Garcia- help appreciated * Consult Nephrology Dr. Ojeda-help appreciated Status: Acute (5) Hematuria Assessment and Plan: * UA positive for blood * Urine culture shows no growth * CT imaging (06/01/16): 9.5 X7.1X5.9 cm heterogenous solid lesion noted on US and CT scan in the left kidney. Possible solid renal cell carcinoma with internal necrotic and/or hemorrhagic components. interval enlargement of the lesion with prominent peripheric fat stranding and fluid surroudnging left kidney. Possible cute hemorrhage * Pelvic US (06/02/16): 8.5 cm left upper pole renal mass, demonstrated on CT examination, No significant post void residual within urinary bladder * Hold NSAIDs at this time due to risk of further bleed * Hgb stable Status: Acute (6) Diabetes mellitus Assessment and Plan: * NISS, Metformin held * Accuchecks QAC and HS * HgbA1c: 6.5 controlled * Start D51/2 NS 50cc/hr on 06/06/16 to prevent hypoglycemia prior to procedure Status: Chronic (7) Leukocytosis Assessment and Plan: * Urine culture (06/01/16): No growth * Blood culture (06/02/16): No growth X3 days * Chest xray (05/2716): mild venous congestion * IV abx: Rocephin 1 gram IV Q 12hours Status: Acute (8) Prophylactic measure Assessment and Plan: * SCDs * VTE contraindicated due to genitourinary bleed * Protonix 40mg IV q daily * NPO after midnight * Start D51/2 NS 50cc/hr on 06/06/16 to prevent hypoglycemia prior to procedure Status: Acute
--- NOTE | 2016-06-05 13:08 | PCM.URO ---
Urology Progress Note - General General: No Complaints, Tolerating Diet - Subjective Abdominal Pain: No (improved) Flank Pain: No Nausea: No Vomiting: No Voiding Well: Yes Hematuria: No (resolved) Dsypnea: No Chest Pain: No Fever & Chills: No - Objective Lab Studies: Reviewed Lab Results Last 24 Hours: Laboratory Results - last 24 hr 06/04/16 06/04/16 06/05/16 16:36 21:27 07:10 WBC RBC Hgb Hct MCV MCH MCHC RDW Plt Count MPV Neut % (Auto) Lymph % (Auto) [place] % (Auto) Eos % (Auto) Baso % (Auto) Neut # Lymph # [place] # Eos # Baso # Sodium Potassium Chloride Carbon Dioxide Anion Gap BUN Creatinine Est GFR ( Amer) Est GFR (Non-Af Amer) POC Glucose (mg/dL) 118 H 109 127 H Random Glucose Calcium Phosphorus Magnesium Total Bilirubin AST ALT Alkaline Phosphatase Total Protein Albumin Globulin Albumin/Globulin Ratio 06/05/16 06/05/16 06/05/16 08:09 08:09 11:33 WBC 11.2 H RBC 5.09 Hgb 13.7 Hct 42.0 MCV 82.6 MCH 26.9 L MCHC 32.6 L RDW 14.5 Plt Count 340 MPV 9.2 Neut % (Auto) 75.4 H Lymph % (Auto) 18.5 L [place] % (Auto) 4.3 Eos % (Auto) 1.1 Baso % (Auto) 0.7 Neut # 8.5 H Lymph # 2.1 [place] # 0.5 Eos # 0.1 Baso # 0.1 Sodium 143 Potassium 3.6 Chloride 100 Carbon Dioxide 29 Anion Gap 18 BUN 19 Creatinine 1.1 Est GFR ( Amer) > 60 Est GFR (Non-Af Amer) > 60 POC Glucose (mg/dL) 105 Random Glucose 117 H Calcium 9.3 Phosphorus 3.3 Magnesium 2.1 Total Bilirubin 1.9 H AST 27 ALT 27 Alkaline Phosphatase 70 Total Protein 8.0 Albumin 4.3 Globulin 3.7 Albumin/Globulin Ratio 1.2 Intake & Output: Intake & Output 06/04/16 06/05/16 06/05/16 18:59 06:59 18:59 Intake Total 400 Balance 400 Intake: Oral 400 Other: # Voids Urine, Voided 5 400 # Bowel Movements 0 Vital Signs: Vital Signs - 24 hr 06/04/16 06/04/16 06/05/16 13:22 15:25 00:00 Temperature 98.4 F 97.9 F Pulse Rate 62 61 74 Respiratory 20 20 20 Rate Blood Pressure 161/79 H 160/94 H 158/92 H O2 Sat by Pulse 96 98 Oximetry 06/05/16 09:46 Temperature 98.2 F Pulse Rate 78 Respiratory 20 Rate Blood Pressure 183/92 H O2 Sat by Pulse 96 Oximetry Imaging Studies: Reviewed (L renal tumor) - Physical Exam Abdominal Exam: Soft, Non-Tender, Non-Distended Bowel Sounds: Normal Back: No CVA Tenderness Genitalia: Without Inflammation - Plan Ambulation - Out of Bed: Yes Intake & Output: Yes Additional Information: IMP: L RENAL TUMOR. PLAN: FOR SURGERY. DISCUSSED W PT. DISCUSSED W DR. CARTER - Date & Time of Note Date: 06/05/16 Time: 13:07
--- NOTE | 2016-06-05 13:18 | CP.PCM.CON ---
History of Present Illness - History of Present Illness History of Present Illness: pt seen and examined, full consult is dictated #[id number] 1. left renal mass, most likely cancer 2. HTN 3. DM for surgery in am c/w norvasc added hydralazine and titrate as needed to keep sbp 120-130 Past Patient History - Infectious Disease Hx of Infectious Diseases: None - Tetanus Immunizations Tetanus Immunization: Unknown - Past Medical History & Family History Past Medical History?: Yes - Past Social History Smoking Status: Never Smoked - CARDIAC Hx Hypertension: Yes - PULMONARY Hx Respiratory Disorders: No - NEUROLOGICAL Hx Neurological Disorder: No - HEENT Hx HEENT Problems: No - RENAL Hx Chronic Kidney Disease: Yes (SEE COMMENT) - ENDOCRINE/METABOLIC Hx Endocrine Disorders: Yes Hx Diabetes Mellitus Type 2: Yes - HEMATOLOGICAL/ONCOLOGICAL Hx Blood Disorders: No - INTEGUMENTARY Hx Dermatological Problems: No - MUSCULOSKELETAL/RHEUMATOLOGICAL Hx Musculoskeletal Disorders: Yes Hx Gout: Yes - GASTROINTESTINAL Hx Gastrointestinal Disorders: No - GENITOURINARY/GYNECOLOGICAL Hx Genitourinary Disorders: No Other/Comment: mass to Lt. kidney - PSYCHIATRIC Hx Substance Use: No - SURGICAL HISTORY Hx Surgeries: Yes - ANESTHESIA Hx Anesthesia: Yes Hx Anesthesia Reactions: No Hx Malignant Hyperthermia: No Meds Allergies/Adverse Reactions: Allergies Allergy/AdvReac Type Severity Reaction Status Date / Time No Known Allergies Allergy Verified 06/01/16 08:22 - Medications Medications: Current Medications Amlodipine Besylate (Norvasc) 10 mg PO DAILY [facility] Last Admin: 06/05/16 12:08 Dose: 10 mg Atenolol (Tenormin) 25 mg PO DAILY [facility] Last Admin: 06/05/16 12:20 Dose: 25 mg Ceftriaxone Sodium (Rocephin Iv 1 Gm Duplex) 50 mls @ 100 mls/hr IVPB Q12 [facility] Last Admin: 06/05/16 12:13 Dose: 100 mls/hr Insulin Aspart (Novolog) 0 unit SC ACHS [facility] PRN Reason: Protocol Last Admin: 06/05/16 08:31 Dose: Not Given Losartan Potassium (Cozaar) 50 mg PO BID [facility] Last Admin: 06/05/16 12:08 Dose: 50 mg Magnesium Citrate (Citrate Of Mag) 300 ml PO ONCE ONE Stop: 06/05/16 20:01 Pantoprazole Sodium (Protonix Inj) 40 mg IVP DAILY [facility] Last Admin: 06/05/16 12:08 Dose: 40 mg Results - Vital Signs Recent Vital Signs: Last Vital Signs Temp 98.2 F 06/05/16 09:46 Pulse 78 06/05/16 09:46 Resp 20 06/05/16 09:46 BP 183/92 H 06/05/16 09:46 Pulse Ox 96 06/05/16 09:46 - Labs Result Diagrams: 06/05/16 08:09 06/05/16 08:09 Labs: Laboratory Results - last 24 hr 06/04/16 06/04/16 06/05/16 16:36 21:27 07:10 WBC RBC Hgb Hct MCV MCH MCHC RDW Plt Count MPV Neut % (Auto) Lymph % (Auto) [place] % (Auto) Eos % (Auto) Baso % (Auto) Neut # Lymph # [place] # Eos # Baso # Sodium Potassium Chloride Carbon Dioxide Anion Gap BUN Creatinine Est GFR ( Amer) Est GFR (Non-Af Amer) POC Glucose (mg/dL) 118 H 109 127 H Random Glucose Calcium Phosphorus Magnesium Total Bilirubin AST ALT Alkaline Phosphatase Total Protein Albumin Globulin Albumin/Globulin Ratio 06/05/16 06/05/16 06/05/16 08:09 08:09 11:33 WBC 11.2 H RBC 5.09 Hgb 13.7 Hct 42.0 MCV 82.6 MCH 26.9 L MCHC 32.6 L RDW 14.5 Plt Count 340 MPV 9.2 Neut % (Auto) 75.4 H Lymph % (Auto) 18.[address] [place] % (Auto) 4.3 Eos % (Auto) 1.1 Baso % (Auto) 0.7 Neut # 8.5 H Lymph # 2.1 [place] # 0.5 Eos # 0.1 Baso # 0.1 Sodium 143 Potassium 3.6 Chloride 100 Carbon Dioxide 29 Anion Gap 18 BUN 19 Creatinine 1.1 Est GFR ( Amer) > 60 Est GFR (Non-Af Amer) > 60 POC Glucose (mg/dL) 105 Random Glucose 117 H Calcium 9.3 Phosphorus 3.3 Magnesium 2.1 Total Bilirubin 1.9 H AST 27 ALT 27 Alkaline Phosphatase 70 Total Protein 8.0 Albumin 4.3 Globulin 3.7 Albumin/Globulin Ratio 1.2
[2016-06-05] MEDS: Saccharomyces Boulardi 250 mg Cap PO SCH (17:39)
[2016-06-05] MEDS ORDERED: Magnesium Citrate Oral SOL (300 ml) PO ONE (20:00)
--- NOTE | 2016-06-05 23:25 | CON ---
DATE: 06/05/2016 The patient is located in room 356, bed A. REQUESTING PHYSICIAN: Dr. Philomena Coleman. REASON FOR RENAL CONSULTATION: Hypertension, diabetes, left renal mass and for further evaluation. HISTORY OF PRESENT ILLNESS: The patient is a 66-year-old elderly male with a past medical h istory significant for hypertension for about 7 years and diabetes for 5 years who was initially admi tted to [facility] sometime in December with hematuria and the patient was found to have a left renal mass, and subsequently, the patient was discharged to follow up as an outpatient. The patient last followup, and subsequently, the patient went to the primary care physician who referred the alice ent to me for hypertension evaluation in the office and the patient was sent for an ultrasound for ro utine screening and found to have a renal mass, which the patient told me in the office, he had a nereida al mass, and subsequently, the primary physician was contacted for followup with urology for surgery. The patient had an insurance issue and cannot see Dr. Garcia. The patient went to another urologi and never followed up. Subsequently, the patient was advised to go back and see Dr. Garcia in [facility] office, and now, the patient was admitted with chief complaints of hematuria 4 days ago prior to [facility] admission. Denies any chest pain, palpitation. The patient was complaining of crampy abdominal pa in and denies any hematuria at this time. Denies any nausea, vomiting, diarrhea. Initially, the pat ient was having abdominal pain, which was crampy in nature and on a scale of 1-10, 8/10 at its worse with no alleviating factors noted. Denies any dysuria or frequency at this time and denies any swell ing of the legs. Denies any fever or chills. Denies any chest pain, palpitation. Denies any shortn ess of breath, any headache, dizziness. PAST MEDICAL HISTORY: Hypertension, diabetes, and gout. PAST SURGICAL HISTORY: None. ALLERGIES: No known drug allergies. SOCIAL HISTORY: Denies any smoking, alcohol or any drug abuse. FAMILY HISTORY: Father had prostate cancer. Mother had diabetes. Sister had thyroid disease. She of lung cancer last year. CURRENT MEDICATIONS: Include hydralazine 25 mg p.o. q. 8 hours, Florastor 250 mg p.o. b.i.d., Norvas c 10 mg daily, Protonix 40 mg IV daily and Rocephin 1 gram q. 12 hours, losartan was discontinued and atenolol 25 mg p.o. daily was also discontinued. REVIEW OF SYSTEMS: Significant for gross hematuria and abdominal pain. All other review of systems is reviewed and are negative. PHYSICAL EXAMINATION: VITAL SIGNS: Blood pressure 162/87, pulse 57, respiration 20, temperature 98.5, saturation 94%. Hei ght 5 feet 7 inches and weight is 210 pounds. GENERAL: The patient is a 66-year-old elderly male, well built, well nourished, not in acut e distress. HEENT: Pupils normal, reactive to light and accommodation. Conjunctivae pink. Sclerae anicteric. Tongue is moist. NECK: Trachea midline. LUNGS: Symmetric on both sides. Bilateral breath sounds present. Clear on auscultation. CARDIOVASCULAR: [place] in the fifth intercostal space midclavicular line. S1 and S2 audible. No murm ur or gallop. ABDOMEN: Normal in appearance, soft, tympanic. No guarding, no rigidity. No hepatosplenomegaly. CENTRAL NERVOUS SYSTEM: The patient is alert, awake, oriented x 3, nonfocal on examination. Cranial nerves II through XII grossly intact. Sensory and motor system is within normal limits. EXTREMITIES: No cyanosis, no clubbing, no edema. LABORATORY DATA: Include as follows: As of 06/05/2016, WBC 11.2, hemoglobin 13.7, hematocrit is 42, platelets 340. Sodium 143, potassium 3.6, chloride 100, CO2 of 29, BUN 19, creatinine 1.1, glucose 105, calcium 9.3, phosphorus 3.3, magnesium 2.1, total bilirubin 1.9. AST 27, ALT 27, alkaline phosp hatase 70, total protein 8, and albumin is 4.3. As of 06/02/2016, PT is 14.9 and PTT 32. Urinalysis as of 06/01/2016, yellowing, hazy, pH 5, specific gravity 1.012, protein 1+, glucose normal, ketones negative, blood 3+, nitrites negative, bilirubin negative, urobilinogen normal, leukocyte esterase n egative, WBC 5, RBC 322, epithelial cells less than 1 and urine culture is negative as of 06/01/2016. Blood culture x 2 negative day #3 as of 06/02/2016. Other reports: CT of the abdomen and pelvis a s of 06/01/2016, again identified 9.5 x 7.1 x 5.9 cm echogenic solid lesion previously noted on ultra sound and CT scan of the left kidney; this is thought to be a possible renal cell carcinoma with poss ible necrotic and/or hemorrhage complements. Since the prior study, there appears to be interv al enlargement of the lesion with new prominent perinephric fat stranding and fluid surrounding the l eft kidney. Clinical correlation: There is a small focal area of increased attenuation seen within the layering portion of the renal pelvis, which may represent some acute hemorrhage, superimposed acu te infectious changes cannot be excluded. No significant lymphadenopathy and no pleural or pericardi al effusion, prominent liver with fatty infiltration 5 mm calcification within the right hepatic lobe mass. Apparently, gallbladder appears . Spleen appears . No fatty atrophy on the pancre as and upper abdominal bowel is present. Right kidney: No calculus, mass, lesion or hydronephrosis. Bladder ultrasound as of 06/01/2016: Right kidney measures 12.6 x 5.2 cm, normal size, contour and echogenicity and the left kidney measures 16.2 x 6.9 x 6.1 cm. Upper pole solid mass 8.1 x 8.5 x 7. 4 cm, trace perinephric fluid and no calculus or hydronephrosis. Distended urinary bladder 167.9 mL, suboptimally distended with smooth contour, right ureteral jet clinically and demonstrative, l eft ureteral jet not seen. No intraluminal mass and post-residual volume is 90 and 17.9 mL. SUMMARY: The patient is a 66-year-old elderly male with history of hypertension, diabetes w ith left renal mass since 12/2015, was admitted with hematuria and abdominal pain and with enlarged k idney on the left side. 1. Left renal mass, rule out malignancy, most likely. 2. Hypertension. Blood pressure is uncontrolled. Discontinue losartan and continue with hydralazin e 25 mg p.o. t.i.d. and titrate as needed and continue Norvasc and a low sodium diet. 3. Diabetes. Sugars are under control. Continue to monitor Accu-Cheks and regular insulin coverage and during postoperative period. Avoid metformin at this time. Case discussed with Dr. Garcia and also Dr. Philomena Coleman in rounds. The patient is scheduled for po ssible nephrectomy in the a.m. Thank you for allowing me to participate in your patient's care. Maryam Clinton MD cc: [id number] TT: 06/05/2016 23:24:23 Confirmation # [id number] Dictation # [id number] mn
[2016-06-06] MEDS: Dextrose 5%/0.45% NS 1,000 ML IV SCH ×2 (00:16→20:01)
--- NOTE | 2016-06-06 05:59 | CARD ---
APPROVED REPORT EXAM: Two-dimensional and M-mode echocardiogram with Doppler and color Doppler. Other Information Quality : GoodRhythm : NSR RISK FACTORS Hypertension Diabetes M-Mode DIMENSIONS RVDd2.07 (2.1-3.2cm)Left Atrium (MM)4.69 (2.5-4.0cm) IVSd1.37 (0.7-1.1cm)Aortic Root3.75 (2.2-3.7cm) LVDd5.23 (4.0-5.6cm)Aortic Cusp Exc.1.95 (1.5-2.0cm) PWd1.25 (0.7-1.1cm)FS (%) 29 % LVDs3.71 (2.0-3.8cm)LVEF (%)55 (>50%) Aortic Valve AoV Peak Ygmcqyqu511.8cm/Geremias Peak GR.7mmHg Mitral Valve MV E Givwfrkn05.8cm/sMV A Luzcnpfc37.6cm/sE/A ratio0.5 TDI E/Lateral E'0.0E/Medial E'0.0 Tricuspid Valve TR Peak Judxrqud477wo/sTR Peak Gr.92gqQrIAGR09sqVi LEFT VENTRICLE The left ventricle is normal size. There is normal left ventricular wall thickness. Left ventricle systolic function is normal. The Ejection Fraction is 55-60%. There is normal LV segmental wall motion. Tissue Doppler imaging reveals abnormal left ventricular diastolic dysfunction. RIGHT VENTRICLE The right ventricle is normal size. There is normal right ventricular wall thickness. The right ventricular systolic function is normal. ATRIA The left atrium size is normal. The right atrium size is normal. The interatrial septum is intact with no evidence for an atrial septal defect. AORTIC VALVE The aortic valve is normal in structure. No aortic regurgitation is present. There is no aortic valvular stenosis. MITRAL VALVE The mitral valve is normal in structure. There is no evidence of mitral valve prolapse. There is no mitral valve stenosis. There is no mitral valve regurgitation noted. TRICUSPID VALVE The tricuspid valve is normal in structure. There is trace tricuspid regurgitation. Right ventricular systolic pressure is estimated at less than 30 mmHg. There is no pulmonary hypertension. PULMONIC VALVE The pulmonic valve is not well visualized. There is no pulmonic valvular regurgitation. GREAT VESSELS The aortic root is normal in size. PERICARDIAL EFFUSION There is no significant pericardial effusion. <Conclusion> Left ventricle systolic function is normal. The Ejection Fraction is 55-60%. Diastolic dysfunction. No aortic regurgitation is present. There is no mitral valve regurgitation noted. There is trace tricuspid regurgitation. There is no pulmonary hypertension. There is no pulmonic valvular regurgitation.
--- NOTE | 2016-06-06 07:20 | CP.PCM.PN ---
<Anish Marte - Last Filed: 06/06/16 14:46> Subjective - Date & Time of Evaluation Date of Evaluation: 06/06/16 Time of Evaluation: 06:16 - Subjective Subjective: PGY 1 Medicine Note- Dr. Simpson's service Pt seen and examined in no acute distress. Patient will have procedure with Urology.Patient admits to bowel movements yesterday after ingesting mag citrate. Patient denies abd pain, back pain, n/v, hematuria, dysuria at this time Objective - Vital Signs/Intake and Output Vital Signs (last 24 hours): Temp Pulse Resp BP Pulse Ox 97.9 F 61 20 137/86 96 06/06/16 00:00 06/06/16 00:00 06/06/16 00:00 06/06/16 00:00 06/06/16 00:00 Intake and Output: 06/06/16 06/06/16 06:59 18:59 Intake Total 450 Balance 450 - Medications Medications: Current Medications Amlodipine Besylate (Norvasc) 10 mg PO DAILY [facility] Last Admin: 06/05/16 12:08 Dose: 10 mg Hydralazine HCl (Apresoline) 50 mg PO Q8 [facility] Last Admin: 06/06/16 05:47 Dose: 50 mg Ceftriaxone Sodium (Rocephin Iv 1 Gm Duplex) 50 mls @ 100 mls/hr IVPB Q12 [facility] Last Admin: 06/05/16 21:08 Dose: 100 mls/hr Dextrose/Sodium Chloride (Dextrose 5%/0.45% Ns 1000 Ml) 1,000 mls @ 50 mls/hr IV .Q20H [facility] Last Admin: 06/06/16 00:16 Dose: 50 mls/hr Insulin Aspart (Novolog) 0 unit SC ACHS [facility] PRN Reason: Protocol Last Admin: 06/05/16 21:26 Dose: Not Given Pantoprazole Sodium (Protonix Inj) 40 mg IVP DAILY [facility] Last Admin: 06/05/16 12:08 Dose: 40 mg Saccharomyces Boulardii (Florastor) 250 mg PO BID [facility] Last Admin: 06/05/16 17:39 Dose: 250 mg - Labs Labs: 06/05/16 08:09 06/05/16 08:09 PT 14.9 SECONDS (9.7-12.2) H 06/02/16 07:20 INR 1.3 06/02/16 07:20 APTT 32 SECONDS (21-34) 06/02/16 07:20 - Constitutional Appears: Non-toxic, No Acute Distress - Head Exam Head Exam: ATRAUMATIC, NORMAL INSPECTION, NORMOCEPHALIC - Eye Exam Eye Exam: EOMI, Normal appearance, PERRL Pupil Exam: NORMAL ACCOMODATION - ENT Exam ENT Exam: Mucous Membranes Moist, Normal Exam - Neck Exam Neck Exam: Full ROM, Normal Inspection - Respiratory Exam Respiratory Exam: NORMAL BREATHING PATTERN. absent: Wheezes - Cardiovascular Exam Cardiovascular Exam: +S1, +S2 - GI/Abdominal Exam GI & Abdominal Exam: Distended, Soft, Normal Bowel Sounds. absent: Firm, Guarding, Rigid, Tenderness - Extremities Exam Extremities Exam: Full ROM, Normal Capillary Refill. absent: Pedal Edema, Tenderness - Neurological Exam Neurological Exam: Alert, Awake, CN II-XII Intact, Oriented x3 Assessment and Plan (1) Abdominal pain Status: Acute (2) Renal mass Status: Acute (3) Hypertension Status: Chronic (4) [place] (acute kidney injury) Status: Acute (5) Hematuria Status: Acute (6) Diabetes mellitus Status: Chronic (7) Prophylactic measure Status: Acute - Assessment and Plan (Free Text) Assessment: (1) Renal mass Assessment and Plan: * CT imaging (06/01/16): 9.5 X7.1X5.9 cm heterogenous solid lesion noted on US and CT scan in the left kidney. Possible solid renal cell carcinoma with internal necrotic and/or hemorrhagic components. interval enlargement of the lesion with prominent peripheric fat stranding and fluid surrounding left kidney. Possible cute hemorrhage. * Pelvic US- F/U report * Consult to Urology Dr. Leta Garcia- Surgical intervention today. F/U * Dr. Clinton referral per Dr. Garcia- [facility] to keep SBP btwn 120 and 130 * Hold NSAIDs * Urine culture (06/01/16): No growth * Blood culture (06/02/16): No growth X48 hours Status: Acute (2) Dysuria Assessment and Plan: * Rocephin 1 gram IV q 12 hours (active since 06/02/16) * Urine culture (06/01/16): no growth * CT imaging (06/01/16): 9.5 X7.1X5.9 cm heterogenous solid lesion noted on US and CT scan in the left kidney. Possible solid renal cell carcinoma with internal necrotic and/or hemorrhagic components. interval enlargement of the lesion with prominent peripheric fat stranding and fluid surroudnging left kidney. Possible cute hemorrhage * Follow-up with urology (3) Hypertension Assessment and Plan: * Uncontrolled * Amlodipine, Apresoline doses adjusted. HR improved; however continue to monitor * Monitor blood pressure and adjust bp meds * Echo LVEF ~55%. Refer to final read * F/U Nephro recommendations Status: Chronic (4) [place] (acute kidney injury) Assessment and Plan: * D5 1/2 fluids since NPO Monitor rate due to hx of HTN * CT imaging (06/01/16): 9.5 X7.1X5.9 cm heterogenous solid lesion noted on US and CT scan in the left kidney. Possible solid renal cell carcinoma with internal necrotic and/or hemorrhagic components. interval enlargement of the lesion with prominent peripheric fat stranding and fluid surroudnging left kidney. Possible cute hemorrhage * Pelvic US (06/02/16): 8.5 cm left upper pole renal mass, demonstrated on CT examination, No significant post void residual within urinary bladder * Bladder PRN Status: Acute (5) Hematuria Assessment and Plan: * One episode 4 days prior to admission which appears to have resolved. * UA on admission positive for blood * Urine culture shows no growth * CT imaging (06/01/16): 9.5 X7.1X5.9 cm heterogenous solid lesion noted on US and CT scan in the left kidney. Possible solid renal cell carcinoma with internal necrotic and/or hemorrhagic components. interval enlargement of the lesion with prominent peripheric fat stranding and fluid surrounding left kidney. Possible cute hemorrhage * Pelvic US (06/02/16): 8.5 cm left upper pole renal mass, demonstrated on CT examination, No significant post void residual within urinary bladder * F/U Urology * Hold NSAIDs at this time due to risk of further bleed * Hgb stable Status: Acute (6) Diabetes mellitus Assessment and Plan: * NISS, Metformin held * Accuchecks QAC and HS * HgbA1c: 6.5 controlled Status: Chronic (7) Leukocytosis Assessment and Plan: * Urine culture (06/01/16): No growth * Blood culture (06/02/16): No growth X48 hours * Chest xray (05/2716): mild venous congestion * IV abx: Rocephin 1 gram IV Q 12hours Status: Acute (8) Prophylactic measure Assessment and Plan: * SCDs * VTE contraindicated due to genitourinary bleed * Protonix 40mg IV q daily Status: Acute <uEgene Simpson H - Last Filed: 06/06/16 17:59> Objective - Vital Signs/Intake and Output Vital Signs (last 24 hours): Temp Pulse Resp BP Pulse Ox 97.6 F 54 L 19 154/85 H 96 06/06/16 15:40 06/06/16 15:40 06/06/16 15:40 06/06/16 15:40 06/06/16 15:40 Intake and Output: 06/06/16 06/06/16 06:59 18:59 Intake Total 450 200 Output Total 300 Balance 450 -100 - Medications Medications: Current Medications Amlodipine Besylate (Norvasc) 10 mg PO DAILY [facility] Last Admin: 06/06/16 09:33 Dose: 10 mg Docusate Sodium (Colace) 100 mg PO TID [facility] Hydralazine HCl (Apresoline) 50 mg PO Q8 [facility] Last Admin: 06/06/16 05:47 Dose: 50 mg Ceftriaxone Sodium (Rocephin Iv 1 Gm Duplex) 50 mls @ 100 mls/hr IVPB Q12 [facility] Last Admin: 06/06/16 09:58 Dose: 100 mls/hr Dextrose/Sodium Chloride (Dextrose 5%/0.45% Ns 1000 Ml) 1,000 mls @ 50 mls/hr IV .Q20H [facility] Last Admin: 06/06/16 00:16 Dose: 50 mls/hr Potassium Chloride/Dextrose/Sod Cl (Potassium Chl 20 Meq In D5-1/2ns) 1,000 mls @ 100 mls/hr IV .Q10H [facility] Insulin Aspart (Novolog) 0 unit SC ACHS [facility] PRN Reason: Protocol Last Admin: 06/06/16 17:05 Dose: Not Given Oxycodone/Acetaminophen (Percocet 5/325 Mg Tab) 1 tab PO Q4H PRN PRN Reason: Pain, moderate (4-7) Stop: 06/09/16 13:25 Pantoprazole Sodium (Protonix Inj) 40 mg IVP DAILY [facility] Last Admin: 06/06/16 09:34 Dose: 40 mg Saccharomyces Boulardii (Florastor) 250 mg PO BID [facility] Last Admin: 06/06/16 09:34 Dose: Not Given - Labs Labs: 06/06/16 07:49 06/06/16 07:49 PT 14.9 SECONDS (9.7-12.2) H 06/02/16 07:20 INR 1.3 06/02/16 07:20 APTT 32 SECONDS (21-34) 06/02/16 07:20 Attending/Attestation - Attestation I have personally seen and examined this patient.: Yes I have fully participated in the care of the patient.: Yes I have reviewed all pertinent clinical information, including history, physical exam and plan: Yes Notes (Text): Medical attending: Patient was seen and examined by me, agrees the above note by bio medical technician. The patient was seen with the resident, when we saw the patient in the morning he had not yet had procedure intended by urology had. He looks stable he was not having any acute pain or discomfort when we saw. As documented above in the resident note there is a very concerning renal mass mass that could very well be some type of malignancy Thank you very much, Eugene Simpson
[2016-06-06] MEDS: (Novolog) Insulin Aspart, Recombinant 100 u/ml 10 ml vial SC SCH ×4 (08:00→22:07)
[2016-06-06 08:06] LABS: BASO # 0.1 K/uL (0.0-0.2); BASO % 0.9 % (0.0-2.0); EOS # 0.1 K/uL (0.0-0.7); EOS % 1.2 % (0.0-4.0); HEMATOCRIT 40.4 % (35.0-51.0); LYMPH # 2.2 K/uL (1.0-4.3); LYMPH % 21.1 % (20.0-40.0); MEAN CELL VOLUME 82.2 fL (80.0-94.0); MEAN CORPUSCULAR HEMOGLOBIN 27.5 pg (27.0-31.0); MEAN CORPUSCULAR HGB CONC 33.5 g/dL (33.0-37.0); MONO # 0.5 K/uL (0.0-0.8); MONO % 5.3 % (0.0-10.0); RED CELL DISTRIBUTION WIDTH 14.2 % (11.5-14.5); WHITE BLOOD COUNT 10.3 K/uL (4.8-10.8)
[2016-06-06 08:10] LABS: CHLORIDE 102 mmol/L (98-107); SODIUM 142 mmol/L (132-148)
[2016-06-06 08:11] LABS: POTASSIUM 3.7 mmol/L (3.6-5.2)
[2016-06-06 08:13] LABS: ALB/GLOB RATIO 1.2 (1.0-2.1); ALKALINE PHOSPHATASE 64 U/L (38-126); ALT/SGPT 25 U/L (21-72); AST/SGOT 23 U/L (17-59); BILIRUBIN,TOTAL 1.6 mg/dL (0.2-1.3); BLOOD UREA NITROGEN 17 mg/dL (9-20); CALCIUM 8.8 mg/dl (8.6-10.4); CARBON DIOXIDE 27 mmol/L (22-30); GFR AFRICAN-AMERICAN > 60; GLUCOSE,RANDOM 122 mg/dL (75-110); TOTAL PROTEIN 7.3 g/dL (6.3-8.3)
[2016-06-06 08:14] LABS: MAGNESIUM 2.2 mg/dL (1.6-2.3)
[2016-06-06] MEDS: Saccharomyces Boulardi 250 mg Cap PO SCH ×2 (09:34→17:51)
[2016-06-06] MEDS: cefTRIAXone IV 1 gm in Dextros 50 ML IVPB SCH ×2 (09:58→22:20)
--- NOTE | 2016-06-06 10:00 | CP.PCM.PN ---
Subjective - Date & Time of Evaluation Date of Evaluation: 06/06/16 Time of Evaluation: 10:00 - Subjective Subjective: pt seen and examined, follow up consult is dictated #[id number] for OR today at 11 am Objective - Vital Signs/Intake and Output Vital Signs (last 24 hours): Temp Pulse Resp BP Pulse Ox 97.8 F 59 L 20 151/82 H 96 06/06/16 07:23 06/06/16 07:23 06/06/16 07:23 06/06/16 07:23 06/06/16 07:23 Intake and Output: 06/06/16 06/06/16 06:59 18:59 Intake Total 450 Balance 450 - Medications Medications: Current Medications Amlodipine Besylate (Norvasc) 10 mg PO DAILY [facility] Last Admin: 06/06/16 09:33 Dose: 10 mg Hydralazine HCl (Apresoline) 50 mg PO Q8 [facility] Last Admin: 06/06/16 05:47 Dose: 50 mg Ceftriaxone Sodium (Rocephin Iv 1 Gm Duplex) 50 mls @ 100 mls/hr IVPB Q12 [facility] Last Admin: 06/06/16 09:58 Dose: 100 mls/hr Dextrose/Sodium Chloride (Dextrose 5%/0.45% Ns 1000 Ml) 1,000 mls @ 50 mls/hr IV .Q20H [facility] Last Admin: 06/06/16 00:16 Dose: 50 mls/hr Insulin Aspart (Novolog) 0 unit SC ACHS [facility] PRN Reason: Protocol Last Admin: 06/06/16 08:00 Dose: Not Given Pantoprazole Sodium (Protonix Inj) 40 mg IVP DAILY [facility] Last Admin: 06/06/16 09:34 Dose: 40 mg Saccharomyces Boulardii (Florastor) 250 mg PO BID [facility] Last Admin: 06/06/16 09:34 Dose: Not Given - Labs Labs: 06/06/16 07:49 06/06/16 07:49 PT 14.9 SECONDS (9.7-12.2) H 06/02/16 07:20 INR 1.3 06/02/16 07:20 APTT 32 SECONDS (21-34) 06/02/16 07:20
[2016-06-06] MEDS ORDERED: Bupivacaine HCl 0.5% PF (10 ml) Inj ONE ×2 (12:02→13:22)
[2016-06-06] MEDS ORDERED: ceFAZolin IV 2 gm in Dextrose 0 GM/0 ML BAG IVPB ONE (12:02)
[2016-06-06] MEDS ORDERED: Propofol 10 mg/ml Inj (20 ML) ONE (12:08)
[2016-06-06] MEDS ORDERED: Lactated Ringer's 1,000 ML IV ONE ×2 (12:15→13:00)
[2016-06-06] MEDS ORDERED: Succinylcholine Chloride 20 mg/ml Syr (5 ml) IV ONE (13:14)
[2016-06-06] MEDS ORDERED: Neostigmine Methylsulfate 3mg/3ml Syringe IV ONE (13:15)
[2016-06-06] MEDS ORDERED: HYDROmorphone 0.5 mg/0.5 ml ISec IVP PRN (13:20)
--- NOTE | 2016-06-06 14:02 | CARD ---
APPROVED REPORT EKG Measurement Heart [id number] <Conclusion> Normal sinus rhythm Normal ECG
[2016-06-06] MEDS: Oxycodone/Acetaminophen 5/325 mg Tab PO PRN ×2 (17:53→22:17)
[2016-06-06] MEDS: Potassium Ch 20mEq in D5-1/2NS 1,000 ML IV SCH (17:57)
--- NOTE | 2016-06-06 19:32 | CP.PCM.PN ---
Subjective - Date & Time of Evaluation Date of Evaluation: 06/06/16 Time of Evaluation: 19:00 - Subjective Subjective: Has post op pain Objective - Vital Signs/Intake and Output Vital Signs (last 24 hours): Temp Pulse Resp BP Pulse Ox 97.6 F 54 L 19 154/85 H 96 06/06/16 15:40 06/06/16 15:40 06/06/16 15:40 06/06/16 15:40 06/06/16 15:40 Intake and Output: 06/06/16 06/07/16 18:59 06:59 Intake Total 200 Output Total 300 Balance -100 - Medications Medications: Current Medications Amlodipine Besylate (Norvasc) 10 mg PO DAILY [facility] Last Admin: 06/06/16 09:33 Dose: 10 mg Docusate Sodium (Colace) 100 mg PO TID [facility] Last Admin: 06/06/16 17:51 Dose: 100 mg Hydralazine HCl (Apresoline) 50 mg PO Q8 [facility] Last Admin: 06/06/16 05:47 Dose: 50 mg Ceftriaxone Sodium (Rocephin Iv 1 Gm Duplex) 50 mls @ 100 mls/hr IVPB Q12 [facility] Last Admin: 06/06/16 09:58 Dose: 100 mls/hr Dextrose/Sodium Chloride (Dextrose 5%/0.45% Ns 1000 Ml) 1,000 mls @ 50 mls/hr IV .Q20H [facility] Last Admin: 06/06/16 00:16 Dose: 50 mls/hr Potassium Chloride/Dextrose/Sod Cl (Potassium Chl 20 Meq In D5-1/2ns) 1,000 mls @ 100 mls/hr IV .Q10H [facility] Last Admin: 06/06/16 17:57 Dose: 100 mls/hr Insulin Aspart (Novolog) 0 unit SC ACHS [facility] PRN Reason: Protocol Last Admin: 06/06/16 17:05 Dose: Not Given Oxycodone/Acetaminophen (Percocet 5/325 Mg Tab) 1 tab PO Q4H PRN PRN Reason: Pain, moderate (4-7) Stop: 06/09/16 13:25 Last Admin: 06/06/16 17:53 Dose: 1 tab Pantoprazole Sodium (Protonix Inj) 40 mg IVP DAILY [facility] Last Admin: 06/06/16 09:34 Dose: 40 mg Saccharomyces Boulardii (Florastor) 250 mg PO BID [facility] Last Admin: 06/06/16 17:51 Dose: 250 mg - Labs Labs: 06/06/16 07:49 06/06/16 07:49 PT 14.9 SECONDS (9.7-12.2) H 06/02/16 07:20 INR 1.3 06/02/16 07:20 APTT 32 SECONDS (21-34) 06/02/16 07:20 - Head Exam Head Exam: ATRAUMATIC - Eye Exam Eye Exam: Normal appearance - ENT Exam ENT Exam: Mucous Membranes Dry - Respiratory Exam Respiratory Exam: NORMAL BREATHING PATTERN - Cardiovascular Exam Cardiovascular Exam: +S1, +S2 - GI/Abdominal Exam GI & Abdominal Exam: Normal Bowel Sounds - Extremities Exam Extremities Exam: Normal Inspection Assessment and Plan (1) Renal mass Assessment & Plan: s/p nephrectomy f/u path Status: Acute (2) Anemia Status: Acute
--- NOTE | 2016-06-06 20:52 | PN ---
DATE: 06/06/2016 The patient is located in room 356, bed A. REQUESTED BY: Dr. Philomena Coleman. REASON FOR FOLLOWUP: Hypertension, diabetes, left renal mass. HISTORY OF PRESENT ILLNESS: The patient is a 66-year-old elderly male with a history of longstanding hypertension, diabetes, with gross hematuria, was admitted initially in the December and found to have large left renal mass. Subsequently, the patient lost followup and now admitted again with gross hematuria and followed by Dr. Garcia. The patient is scheduled for the nephrectomy on left side today. The patient denies any headache, dizziness. Denies any chest pain, palpitations. Denies any fever or cough. No abdominal pain, no nausea, vomiting, no swelling of the legs. PHYSICAL EXAMINATION: VITAL SIGNS: This morning as follows: Blood pressure 151/82, pulse 59, respirations 20, temperature 97.8, saturation 96%. Height 5 feet 7 inches and the weight is 210 pounds. GENERAL: The patient is a 66-year-old elderly male, moderately built, moderately nourished, not in any distress. HEENT: Pupils normal, reactive to light and accommodation. Conjunctivae pink. Sclerae anicteric. Tongue is moist. NECK: Trachea midline. LUNGS: Symmetric on both sides. Bilateral breath sounds present. Clear on auscultation. CARDIOVASCULAR: [place] in the fifth intercostal space midclavicular line. S1 and S2 audible. No murmur or gallop. ABDOMEN: Normal in appearance. Soft, tympanic. No guarding, no rigidity. No hepatosplenomegaly. CENTRAL NERVOUS SYSTEM: The patient is alert, awake, oriented x 3, nonfocal on examination. Cranial nerves II-XII grossly intact. Sensory and motor system is within normal limits. EXTREMITIES: No cyanosis, no clubbing, no edema. CURRENT MEDICATIONS: Include as follows: Hydralazine 50 mg p.o. q. 8 hours, Colace 100 mg p.o. t.i.d., IV fluids of D5 half normal saline at 50 mL per hour , Florastor 250 mg p.o. b.i.d., Norvasc 10 mg daily, NovoLog insulin for sliding scale, Percocet 1 tablet q. 6 hours p.r.n. for pain, IV fluids, KCl 20 mEq IV piggyback x 1, Protonix 40 mg daily, Rocephin 1 gram q. 12 hours. LABORATORY DATA: Include as follows: As of 06/06/2016. WBC 10.3, hemoglobin 13.5, hematocrit is 40.4 and . Sodium 142, potassium 3.7, chloride 102, CO2 27 , BUN 17, creatinine 1.1, glucose 122, calcium 8.8, phosphorus 3, magnesium 2.2 , total bili 1.6, AST 23, ALT 25, alkaline phosphatase 64, total protein 7.3, albumin is 3.9. SUMMARY: The patient is a 66-year-old elderly male with hypertension, diabetes with now gross hematuria and left renal mass. 1. Hypertension. Blood pressure is slightly high. Continue Norvasc and hydralazine and titrate as needed to keep for systolic blood pressure below 130/ 80. 2. Left renal mass. The patient is scheduled for nephrectomy at 11:00 this morning. Follow up with urology and follow up BMP in the a.m. Thank you for allowing me to participate in your patient's care. Maryam Clinton MD cc: [id number] TT: 06/06/2016 20:52:14 Confirmation # [id number] Dictation # [id number] martínez NAVARRO
[2016-06-07] MEDS: Potassium Ch 20mEq in D5-1/2NS 1,000 ML IV SCH ×3 (00:51→13:48)
[2016-06-07 01:47] VITALS: RESP 20
[2016-06-07 07:19] LABS: BASO % 0.3 % (0.0-2.0); EOS # 0.1 K/uL (0.0-0.7); HEMATOCRIT 39.3 % (35.0-51.0); LYMPH # 1.8 K/uL (1.0-4.3); LYMPH % 20.2 % (20.0-40.0); MEAN CELL VOLUME 82.2 fL (80.0-94.0); MEAN CORPUSCULAR HEMOGLOBIN 26.8 pg (27.0-31.0); MEAN CORPUSCULAR HGB CONC 32.6 g/dL (33.0-37.0); MONO # 0.6 K/uL (0.0-0.8); MONO % 6.2 % (0.0-10.0); RED CELL DISTRIBUTION WIDTH 14.5 % (11.5-14.5)
[2016-06-07 07:37] LABS: POTASSIUM 3.9 mmol/L (3.6-5.2)
[2016-06-07 07:39] LABS: ALB/GLOB RATIO 1.2 (1.0-2.1); BILIRUBIN,TOTAL 1.7 mg/dL (0.2-1.3); TOTAL PROTEIN 6.7 g/dL (6.3-8.3)
[2016-06-07 07:40] LABS: MAGNESIUM 1.9 mg/dL (1.6-2.3); PHOSPHOROUS 3.5 mg/dL (2.5-4.5)
--- NOTE | 2016-06-07 08:50 | CP.PCM.PN ---
<Anish Marte - Last Filed: 06/07/16 10:38> Subjective - Date & Time of Evaluation Date of Evaluation: 06/07/16 Time of Evaluation: 06:12 - Subjective Subjective: PGY-1 Medicine Note- Dr. Simpson's service Pt seen and examined in no acute distress. Pt is s/p robotic left radical nephrectomy. Pt states that he has some abdominal pain in the LLQ region; though otherwise ok. Patient denies flatus or bowel movements. He states that he had his last bowel movement before the surgery yesterday. Patient concerned about BP. He denies chest pain, fevers, chills, nausea, vomiting, palpitations, paresthesias, hematuria, dysuria at this time. Objective - Vital Signs/Intake and Output Vital Signs (last 24 hours): Temp Pulse Resp BP Pulse Ox 98.5 F 76 20 157/90 H 97 06/07/16 08:30 06/07/16 08:30 06/07/16 08:30 06/07/16 08:30 06/07/16 08:30 Intake and Output: 06/07/16 06/07/16 06:59 18:59 Intake Total 850 250 Output Total 400 Balance 850 -150 - Medications Medications: Current Medications Amlodipine Besylate (Norvasc) 10 mg PO DAILY [facility] Last Admin: 06/06/16 09:33 Dose: 10 mg Docusate Sodium (Colace) 100 mg PO TID [facility] Last Admin: 06/06/16 17:51 Dose: 100 mg Hydralazine HCl (Apresoline) 50 mg PO Q8 [facility] Last Admin: 06/07/16 05:50 Dose: 50 mg Ceftriaxone Sodium (Rocephin Iv 1 Gm Duplex) 50 mls @ 100 mls/hr IVPB Q12 [facility] Last Admin: 06/06/16 22:20 Dose: 100 mls/hr Dextrose/Sodium Chloride (Dextrose 5%/0.45% Ns 1000 Ml) 1,000 mls @ 50 mls/hr IV .Q20H [facility] Last Admin: 06/06/16 20:01 Dose: Not Given Potassium Chloride/Dextrose/Sod Cl (Potassium Chl 20 Meq In D5-1/2ns) 1,000 mls @ 100 mls/hr IV .Q10H [facility] Last Admin: 05/03/17 05:50 Dose: 100 mls/hr Insulin Aspart (Novolog) 0 unit SC ACHS [facility] PRN Reason: Protocol Last Admin: 06/06/16 22:07 Dose: Not Given Oxycodone/Acetaminophen (Percocet 5/325 Mg Tab) 1 tab PO Q4H PRN PRN Reason: Pain, moderate (4-7) Stop: 06/09/16 13:25 Last Admin: 06/06/16 22:17 Dose: 1 tab Pantoprazole Sodium (Protonix Inj) 40 mg IVP DAILY [facility] Last Admin: 06/06/16 09:34 Dose: 40 mg Saccharomyces Boulardii (Florastor) 250 mg PO BID [facility] Last Admin: 06/06/16 17:51 Dose: 250 mg - Labs Labs: 06/07/16 07:01 06/07/16 07:01 PT 14.9 SECONDS (9.7-12.2) H 06/02/16 07:20 INR 1.3 06/02/16 07:20 APTT 32 SECONDS (21-34) 06/02/16 07:20 - Constitutional Appears: Non-toxic, No Acute Distress - Head Exam Head Exam: ATRAUMATIC, NORMAL INSPECTION, NORMOCEPHALIC - Eye Exam Eye Exam: EOMI, PERRL Pupil Exam: NORMAL ACCOMODATION - ENT Exam ENT Exam: Mucous Membranes Moist, Normal Exam - Neck Exam Neck Exam: Full ROM - Respiratory Exam Respiratory Exam: Clear to Ausculation Bilateral - Cardiovascular Exam Cardiovascular Exam: REGULAR RHYTHM, +S1, +S2 - GI/Abdominal Exam GI & Abdominal Exam: Distended, Soft, Tenderness (LLQ), Normal Bowel Sounds. absent: Guarding, Rigid Additional comments: dressings c,d,i - Extremities Exam Extremities Exam: Full ROM, Normal Capillary Refill. absent: Joint Swelling - Back Exam Back Exam: Full ROM - Neurological Exam Neurological Exam: Alert, Awake, CN II-XII Intact, Oriented x3 - Psychiatric Exam Psychiatric exam: Normal Affect, Normal Mood - Skin Skin Exam: Dry, Normal Color, Warm Assessment and Plan (1) Abdominal pain Status: Acute (2) Renal mass Status: Acute (3) Hypertension Status: Chronic (4) [place] (acute kidney injury) Status: Acute (5) Hematuria Status: Acute (6) Diabetes mellitus Status: Chronic (7) Prophylactic measure Status: Acute - Assessment and Plan (Free Text) Assessment: (1) S/P Left radical Nephrectomy Assessment and Plan: * CT imaging (06/01/16): 9.5 x 7.1 x 5.9 cm heterogenous solid lesion noted on US and CT scan in the left kidney. Possible solid renal cell carcinoma with internal necrotic and/or hemorrhagic components. Interval enlargement of the lesion with prominent peripheric fat stranding and fluid surrounding left kidney. Possible acute hemorrhage. * Bladder US- 8.5 cm left upper pole renal mass demonstrated on CT. No significant postvoid residual in bladder . F/U full report * Consult to Urology Dr. Leta Garcia- F/U reccs * Dr. Clinton referral per Dr. Garcia- Reccs to keep SBP btwn 120 and 130 * Hold NSAIDs * Urine culture (06/01/16): No growth * Blood culture (06/02/16): No growth X48 hours * F/U pathology * F/U recommendations Dr. Morris ( [facility]) Status: Acute (2) Dysuria Assessment and Plan: * Improved * Rocephin 1 gram IV q 12 hours (active since 06/02/16) * Urine culture (06/01/16): no growth * CT imaging (06/01/16): 9.5 X7.1X5.9 cm heterogenous solid lesion noted on US and CT scan in the left kidney. Possible solid renal cell carcinoma with internal necrotic and/or hemorrhagic components. interval enlargement of the lesion with prominent peripheric fat stranding and fluid surrounding left kidney. Possible cute hemorrhage * Follow-up with urology (3) Hypertension Assessment and Plan: * Improved * Amlodipine, Hydralazine; Continue to monitor * Monitor blood pressure and adjust bp meds * Echo LVEF ~55%. Refer to final read * F/U Nephro recommendations Status: Chronic (4) [place] (acute kidney injury) Assessment and Plan: * D 5 1/2 ns with Potassium @ 75 mls. Monitor BP. * CT imaging (06/01/16): 9.5 X7.1X5.9 cm heterogenous solid lesion noted on US and CT scan in the left kidney. Possible solid renal cell carcinoma with internal necrotic and/or hemorrhagic components. interval enlargement of the lesion with prominent peripheric fat stranding and fluid surroudnging left kidney. Possible cute hemorrhage * Pelvic US (06/02/16): 8.5 cm left upper pole renal mass, demonstrated on CT examination, No significant post void residual within urinary bladder * Bladder PRN Status: Acute (5) Hematuria Assessment and Plan: * One episode 4 days prior to admission which appears to have resolved. * UA on admission positive for blood * Urine culture shows no growth * CT imaging (06/01/16): 9.5 X7.1X5.9 cm heterogenous solid lesion noted on US and CT scan in the left kidney. Possible solid renal cell carcinoma with internal necrotic and/or hemorrhagic components. interval enlargement of the lesion with prominent peripheric fat stranding and fluid surrounding left kidney. Possible cute hemorrhage * Pelvic US (06/02/16): 8.5 cm left upper pole renal mass, demonstrated on CT examination, No significant post void residual within urinary bladder * F/U Urology * Hold NSAIDs at this time due to risk of further bleed * Hgb stable Status: Acute (6) Diabetes mellitus Assessment and Plan: * NISS, Metformin held * Accuchecks QAC and HS * HgbA1c: 6.5 controlled Status: Chronic (7) Leukocytosis Assessment and Plan: * Urine culture (06/01/16): No growth * Blood culture (06/02/16): No growth X48 hours * Chest xray (05/2716): mild venous congestion * IV abx: Rocephin 1 gram IV Q 12hours Status: Acute (8) Prophylactic measure Assessment and Plan: * SCDs * VTE contraindicated due to genitourinary bleed * Protonix 40mg IV q daily Status: Acute <Eugene Simpson H - Last Filed: 06/07/16 15:37> Objective - Vital Signs/Intake and Output Vital Signs (last 24 hours): Temp Pulse Resp BP Pulse Ox 98.5 F 76 20 171/83 H 97 06/07/16 08:30 06/07/16 08:30 06/07/16 08:30 06/07/16 13:50 06/07/16 08:30 Intake and Output: 06/07/16 06/07/16 06:59 18:59 Intake Total 850 1200 Output Total 1600 Balance 850 -400 - Medications Medications: Current Medications Amlodipine Besylate (Norvasc) 10 mg PO DAILY [facility] Last Admin: 06/07/16 09:33 Dose: 10 mg Docusate Sodium (Colace) 100 mg PO TID [facility] Last Admin: 06/07/16 13:47 Dose: 100 mg Hydralazine HCl (Apresoline) 50 mg PO Q8 [facility] Last Admin: 06/07/16 13:46 Dose: 50 mg Ceftriaxone Sodium (Rocephin Iv 1 Gm Duplex) 50 mls @ 100 mls/hr IVPB Q12 [facility] Last Admin: 06/07/16 10:43 Dose: 100 mls/hr Potassium Chloride/Dextrose/Sod Cl (Potassium Chl 20 Meq In D5-1/2ns) 1,000 mls @ 75 mls/hr IV .[id number] [facility] Last Admin: 06/07/16 13:48 Dose: 75 mls/hr Insulin Aspart (Novolog) 0 unit SC ACHS [facility] PRN Reason: Protocol Last Admin: 06/07/16 12:03 Dose: Not Given Oxycodone/Acetaminophen (Percocet 5/325 Mg Tab) 1 tab PO Q4H PRN PRN Reason: Pain, moderate (4-7) Stop: 06/09/16 13:25 Last Admin: 06/06/16 22:17 Dose: 1 tab Pantoprazole Sodium (Protonix Inj) 40 mg IVP DAILY [facility] Last Admin: 06/07/16 09:34 Dose: 40 mg Saccharomyces Boulardii (Florastor) 250 mg PO BID [facility] Last Admin: 06/07/16 09:34 Dose: 250 mg - Labs Labs: 06/07/16 07:01 06/07/16 07:01 PT 14.9 SECONDS (9.7-12.2) H 06/02/16 07:20 INR 1.3 06/02/16 07:20 APTT 32 SECONDS (21-34) 06/02/16 07:20 Attending/Attestation - Attestation I have personally seen and examined this patient.: Yes I have fully participated in the care of the patient.: Yes I have reviewed all pertinent clinical information, including history, physical exam and plan: Yes Notes (Text): 06/07/16 15:31 Medical attending: Patient was seen and examined by me, agrees the above note by ophthalmic medical technician. The patient is status post left nephrectomy. Currently his hemoglobin is 12.8 and we should continue to monitor this. He said that he did have pain but that the pain was controlled when we saw him. The blood pressure is running somewhat high when we saw him his morning systolic was 160. Regarding decreased intravenous fluids to a lower rate. Continue blood pressure medications as well. Thank you very much, Eugene Simpson
[2016-06-07] MEDS: (Novolog) Insulin Aspart, Recombinant 100 u/ml 10 ml vial SC SCH ×3 (09:34→16:19)
[2016-06-07] MEDS: Saccharomyces Boulardi 250 mg Cap PO SCH ×2 (09:34→17:53)
--- NOTE | 2016-06-07 10:25 | CP.PCM.PN ---
Subjective - Date & Time of Evaluation Date of Evaluation: 06/07/16 Time of Evaluation: 10:24 - Subjective Subjective: pt seen and examined, follow up consult is dictated #[id number] s/p rhobotic radical left nephrectomy c/w ivf avoid nephrotoxic agents Objective - Vital Signs/Intake and Output Vital Signs (last 24 hours): Temp Pulse Resp BP Pulse Ox 98.5 F 76 20 157/90 H 97 06/07/16 08:30 06/07/16 08:30 06/07/16 08:30 06/07/16 08:30 06/07/16 08:30 Intake and Output: 06/07/16 06/07/16 06:59 18:59 Intake Total 850 250 Output Total 400 Balance 850 -150 - Medications Medications: Current Medications Amlodipine Besylate (Norvasc) 10 mg PO DAILY [facility] Last Admin: 06/07/16 09:33 Dose: 10 mg Docusate Sodium (Colace) 100 mg PO TID [facility] Last Admin: 06/07/16 09:33 Dose: 100 mg Hydralazine HCl (Apresoline) 50 mg PO Q8 [facility] Last Admin: 06/07/16 05:50 Dose: 50 mg Ceftriaxone Sodium (Rocephin Iv 1 Gm Duplex) 50 mls @ 100 mls/hr IVPB Q12 [facility] Last Admin: 06/06/16 22:20 Dose: 100 mls/hr Dextrose/Sodium Chloride (Dextrose 5%/0.45% Ns 1000 Ml) 1,000 mls @ 50 mls/hr IV .Q20H [facility] Last Admin: 06/06/16 20:01 Dose: Not Given Potassium Chloride/Dextrose/Sod Cl (Potassium Chl 20 Meq In D5-1/2ns) 1,000 mls @ 100 mls/hr IV .Q10H [facility] Last Admin: 06/07/16 05:50 Dose: 100 mls/hr Insulin Aspart (Novolog) 0 unit SC ACHS [facility] PRN Reason: Protocol Last Admin: 06/07/16 09:34 Dose: Not Given Oxycodone/Acetaminophen (Percocet 5/325 Mg Tab) 1 tab PO Q4H PRN PRN Reason: Pain, moderate (4-7) Stop: 06/09/16 13:25 Last Admin: 06/06/16 22:17 Dose: 1 tab Pantoprazole Sodium (Protonix Inj) 40 mg IVP DAILY [facility] Last Admin: 06/07/16 09:34 Dose: 40 mg Saccharomyces Boulardii (Florastor) 250 mg PO BID [facility] Last Admin: 06/07/16 09:34 Dose: 250 mg - Labs Labs: 06/07/16 07:01 06/07/16 07:01 PT 14.9 SECONDS (9.7-12.2) H 06/02/16 07:20 INR 1.3 06/02/16 07:20 APTT 32 SECONDS (21-34) 06/02/16 07:20
[2016-06-07] MEDS: cefTRIAXone IV 1 gm in Dextros 50 ML IVPB SCH ×2 (10:43→21:18)
[2016-06-07] MEDS: Oxycodone/Acetaminophen 5/325 mg Tab PO PRN (21:15)
--- NOTE | 2016-06-07 22:22 | PN ---
DATE: 06/07/2016 LOCATION: The patient is located in room 356, bed A. REQUESTED BY: Dr. Philomena Coleman. REASON FOR RENAL CONSULTATION: Left renal mass, hypertension, diabetes, status post radical nephrect darrin. HISTORY OF PRESENT ILLNESS: The patient is a 66-year-old elderly male with a history of katie gstanding hypertension, diabetes, large left renal mass about 10 cm, who was admitted with gross ben turia and the patient has increase in size of the left renal mass since December. The patient roboti c radical left nephrectomy yesterday. The patient is feeling better, not in acute distress and denie s any chest pain, palpitations. Denies any fever, cough, no abdominal pain. PHYSICAL EXAMINATION: VITAL SIGNS: This morning as follows: Blood pressure 157/90, pulse 76, respirations 20, temperature 98.5, and saturation 97%, height 5 feet 7 inches and weight is 210 pounds. GENERAL: The patient is a 66-year-old male, moderately built, moderately nourished, not in acute dis tress. HEENT: Pupils normal, reactive to light and accommodation. Conjunctivae pink. Sclerae anicteric. Tongue is moist. NECK: Trachea is midline. LUNGS: Symmetric on both sides. Bilateral breath sounds present. Clear on auscultation. CARDIOVASCULAR: [place] in the fifth intercostal space midclavicular line. S1 and S2 audible. No murm ur or gallop. ABDOMEN: Normal in appearance. The patient has multiple dressings to the left flank region. Bowel sounds present. CENTRAL NERVOUS SYSTEM: The patient is alert, awake, oriented x 3, nonfocal on examination. EXTREMITIES: No cyanosis, no clubbing, no edema. CURRENT MEDICATIONS: Include as follows: Hydralazine 50 mg p.o. q. 8 hours, Colace 100 mg p.o. t.i. d., Florastor 250 mg p.o. b.i.d., Norvasc 10 mg daily, NovoLog insulin for sliding scale, Percocet 1 tablet q. 4 hours p.r.n. for pain, IV fluids D5 and half normal saline with 20 mEq KCl at 75 mL per h our, Protonix 40 mg daily, Rocephin 1 gram q. 12 hours. LABORATORY DATA: Include as follows: As of 06/07/2016: WBC 9, hemoglobin 12.8, hematocrit is 39.3, platelets 298. Sodium 137, potassium 3.9, chloride 102, CO2 24, BUN 15, creatinine 1.6 and glucose is 110, calcium is 8, phosphorus 3.5, magnesium 1.9, total bilirubin 1.7, AST 20, ALT 24, alkaline ph osphatase 56, total protein 6.7. SUMMARY: The patient is a 66-year-old elderly male with a history of hypertension, diabetes, large r enal cell mass status post robotic left radical nephrectomy done on 06/06/2016 with increased BUN and creatinine. PLAN: 1. Hypertension. Blood pressure is slightly high. Continue his current medications, Norvasc and hy dralazine and will titrate as needed. 2. Acute renal failure, most likely secondary to radical nephrectomy. Continue IV fluids D5 half no rmal saline with 20 of mEq KCl at 75 mL per hour and repeat BMP in a.m. and increase p.o. fluid intak e. Will follow with you. 3. Status post robotic radical nephrectomy, rule out malignancy most likely. Will follow pathology report. Thank you for allowing me to participate in your patient's care. Maryam Clinton MD cc: [id number] TT: 06/07/2016 22:21:50 Confirmation # [id number] Dictation # [id number] martínez
[2016-06-08] MEDS: Potassium Ch 20mEq in D5-1/2NS 1,000 ML IV SCH ×3 (01:13→18:03)
--- NOTE | 2016-06-08 03:04 | CP.PCM.PN ---
Subjective - Date & Time of Evaluation Date of Evaluation: 06/07/16 Time of Evaluation: 18:30 - Subjective Subjective: Mild post surgical pain Objective - Vital Signs/Intake and Output Vital Signs (last 24 hours): Temp Pulse Resp BP Pulse Ox 98.1 F 70 20 153/82 H 96 06/08/16 00:00 06/08/16 00:00 06/08/16 00:00 06/08/16 00:00 06/08/16 00:00 Intake and Output: 06/07/16 06/08/16 18:59 06:59 Intake Total 1200 850 Output Total 1600 Balance -400 850 - Medications Medications: Current Medications Amlodipine Besylate (Norvasc) 10 mg PO DAILY [facility] Last Admin: 06/07/16 09:33 Dose: 10 mg Docusate Sodium (Colace) 100 mg PO TID [facility] Last Admin: 06/07/16 17:49 Dose: 100 mg Hydralazine HCl (Apresoline) 50 mg PO Q8 [facility] Last Admin: 06/07/16 21:25 Dose: 50 mg Ceftriaxone Sodium (Rocephin Iv 1 Gm Duplex) 50 mls @ 100 mls/hr IVPB Q12 [facility] Last Admin: 06/07/16 21:18 Dose: 100 mls/hr Potassium Chloride/Dextrose/Sod Cl (Potassium Chl 20 Meq In D5-1/2ns) 1,000 mls @ 75 mls/hr IV .[id number] [facility] Last Admin: 06/07/16 13:48 Dose: 75 mls/hr Insulin Aspart (Novolog) 0 unit SC ACHS [facility] PRN Reason: Protocol Last Admin: 06/07/16 16:19 Dose: Not Given Oxycodone/Acetaminophen (Percocet 5/325 Mg Tab) 1 tab PO Q4H PRN PRN Reason: Pain, moderate (4-7) Stop: 06/09/16 13:25 Last Admin: 06/07/16 21:15 Dose: 1 tab Pantoprazole Sodium (Protonix Inj) 40 mg IVP DAILY [facility] Last Admin: 06/07/16 09:34 Dose: 40 mg Saccharomyces Boulardii (Florastor) 250 mg PO BID [facility] Last Admin: 06/07/16 17:53 Dose: 250 mg - Labs Labs: 06/07/16 07:01 06/07/16 07:01 PT 14.9 SECONDS (9.7-12.2) H 06/02/16 07:20 INR 1.3 06/02/16 07:20 APTT 32 SECONDS (21-34) 06/02/16 07:20 - Head Exam Head Exam: ATRAUMATIC - Eye Exam Eye Exam: Normal appearance - ENT Exam ENT Exam: Mucous Membranes Dry - Respiratory Exam Respiratory Exam: NORMAL BREATHING PATTERN - Cardiovascular Exam Cardiovascular Exam: +S1, +S2 - GI/Abdominal Exam GI & Abdominal Exam: Normal Bowel Sounds - Extremities Exam Extremities Exam: Normal Inspection Assessment and Plan (1) Renal mass Assessment & Plan: s/p left nephrectomy f/u pathology Status: Acute (2) Anemia Assessment & Plan: mild, surgical blood loss Status: Acute
[2016-06-08] MEDS: (Novolog) Insulin Aspart, Recombinant 100 u/ml 10 ml vial SC SCH ×5 (07:43→22:10)
[2016-06-08 08:55] LABS: BASO # 0.1 K/uL (0.0-0.2); BASO % 0.5 % (0.0-2.0); EOS # 0.1 K/uL (0.0-0.7); EOS % 1.3 % (0.0-4.0); HEMATOCRIT 41.9 % (35.0-51.0); LYMPH # 1.4 K/uL (1.0-4.3); LYMPH % 12.4 % (20.0-40.0); MEAN CORPUSCULAR HEMOGLOBIN 25.8 pg (27.0-31.0); MEAN CORPUSCULAR HGB CONC 31.1 g/dL (33.0-37.0); MEAN PLATELET VOLUME 9.5 fL (7.2-11.7); MONO # 0.7 K/uL (0.0-0.8); MONO % 6.4 % (0.0-10.0); RED CELL DISTRIBUTION WIDTH 14.5 % (11.5-14.5); WHITE BLOOD COUNT 11.4 K/uL (4.8-10.8)
[2016-06-08 09:06] LABS: POTASSIUM 3.7 mmol/L (3.6-5.2)
[2016-06-08 09:08] LABS: BILIRUBIN,TOTAL 1.6 mg/dL (0.2-1.3)
[2016-06-08 09:09] LABS: ALB/GLOB RATIO 1.1 (1.0-2.1); CALCIUM 8.8 mg/dl (8.6-10.4); PHOSPHOROUS 2.5 mg/dL (2.5-4.5); TOTAL PROTEIN 7.5 g/dL (6.3-8.3)
[2016-06-08] MEDS: cefTRIAXone IV 1 gm in Dextros 50 ML IVPB SCH ×2 (09:11→22:05)
[2016-06-08] MEDS: Oxycodone/Acetaminophen 5/325 mg Tab PO PRN ×2 (09:13→22:08)
--- NOTE | 2016-06-08 11:21 | CP.PCM.PN ---
Subjective - Date & Time of Evaluation Date of Evaluation: 06/08/16 Time of Evaluation: 11:21 - Subjective Subjective: pt seen and examined, follow up consult is dictated #[id number] Objective - Vital Signs/Intake and Output Vital Signs (last 24 hours): Temp Pulse Resp BP Pulse Ox 98.7 F 88 20 163/87 H 95 06/08/16 07:28 06/08/16 07:28 06/08/16 07:28 06/08/16 07:28 06/08/16 07:28 Intake and Output: 06/08/16 06/08/16 06:59 18:59 Intake Total 850 Balance 850 - Medications Medications: Current Medications Amlodipine Besylate (Norvasc) 10 mg PO DAILY [facility] Last Admin: 06/08/16 09:11 Dose: 10 mg Docusate Sodium (Colace) 100 mg PO TID [facility] Last Admin: 06/08/16 09:10 Dose: 100 mg Hydralazine HCl (Apresoline) 50 mg PO Q8 [facility] Last Admin: 06/08/16 05:12 Dose: 50 mg Ceftriaxone Sodium (Rocephin Iv 1 Gm Duplex) 50 mls @ 100 mls/hr IVPB Q12 [facility] Last Admin: 06/08/16 09:11 Dose: 100 mls/hr Potassium Chloride/Dextrose/Sod Cl (Potassium Chl 20 Meq In D5-1/2ns) 1,000 mls @ 50 mls/hr IV .Q20H [facility] Insulin Aspart (Novolog) 0 unit SC ACHS [facility] PRN Reason: Protocol Last Admin: 06/08/16 07:43 Dose: Not Given Oxycodone/Acetaminophen (Percocet 5/325 Mg Tab) 1 tab PO Q4H PRN PRN Reason: Pain, moderate (4-7) Stop: 06/09/16 13:25 Last Admin: 06/08/16 09:13 Dose: 1 tab Pantoprazole Sodium (Protonix Inj) 40 mg IVP DAILY [facility] Last Admin: 06/08/16 09:11 Dose: 40 mg Saccharomyces Boulardii (Florastor) 250 mg PO BID [facility] Last Admin: 06/07/16 17:53 Dose: 250 mg - Labs Labs: 06/08/16 08:48 06/08/16 08:48 PT 14.9 SECONDS (9.7-12.2) H 06/02/16 07:20 INR 1.3 06/02/16 07:20 APTT 32 SECONDS (21-34) 06/02/16 07:20
--- NOTE | 2016-06-08 11:23 | PCM.URO ---
Urology Progress Note - Objective Lab Results Last 24 Hours: Laboratory Results - last 24 hr 06/07/16 06/07/16 06/08/16 16:18 21:02 07:18 WBC RBC Hgb Hct MCV MCH MCHC RDW Plt Count MPV Neut % (Auto) Lymph % (Auto) [place] % (Auto) Eos % (Auto) Baso % (Auto) Neut # Lymph # [place] # Eos # Baso # Sodium Potassium Chloride Carbon Dioxide Anion Gap BUN Creatinine Est GFR ( Amer) Est GFR (Non-Af Amer) POC Glucose (mg/dL) 130 H 119 H 149 H Random Glucose Calcium Phosphorus Magnesium Total Bilirubin AST ALT Alkaline Phosphatase Total Protein Albumin Globulin Albumin/Globulin Ratio 06/08/16 06/08/16 08:48 08:48 WBC 11.4 H RBC 5.05 Hgb 13.0 Hct 41.9 MCV 83.0 MCH 25.8 L MCHC 31.1 L RDW 14.5 Plt Count 281 MPV 9.5 Neut % (Auto) 79.4 H Lymph % (Auto) 12.4 L [place] % (Auto) 6.4 Eos % (Auto) 1.3 Baso % (Auto) 0.5 Neut # 9.0 H Lymph # 1.4 [place] # 0.7 Eos # 0.1 Baso # 0.1 Sodium 137 Potassium 3.7 Chloride 100 Carbon Dioxide 26 Anion Gap 15 BUN 11 Creatinine 1.5 Est GFR ( Amer) 56 Est GFR (Non-Af Amer) 47 POC Glucose (mg/dL) Random Glucose 142 H Calcium 8.8 Phosphorus 2.5 Magnesium 2.0 Total Bilirubin 1.6 H AST 22 ALT 24 Alkaline Phosphatase 69 Total Protein 7.5 Albumin 4.0 Globulin 3.5 Albumin/Globulin Ratio 1.1 Intake & Output: Intake & Output 06/07/16 06/08/16 06/08/16 18:59 06:59 18:59 Intake Total 1200 850 Output Total 1600 Balance -400 850 Intake: Intake, IV Amount 650 800 Right Hand 650 800 Oral 550 Other 50 Output: Urine 1600 Urine, Voided 1600 Vital Signs: Vital Signs - 24 hr 06/07/16 06/07/16 06/08/16 13:50 16:00 00:00 Temperature 98.6 F 98.1 F Pulse Rate 72 70 Respiratory 20 20 Rate Blood Pressure 171/83 H 156/77 H 153/82 H O2 Sat by Pulse 95 96 Oximetry 06/08/16 07:28 Temperature 98.7 F Pulse Rate 88 Respiratory 20 Rate Blood Pressure 163/87 H O2 Sat by Pulse 95 Oximetry
[2016-06-08] MEDS ORDERED: Oxycodone/Acetaminophen 5/325 mg Tab PO SCH (11:30)
[2016-06-08] MEDS ORDERED: Magnesium Hydroxide Susp 30 ml UD PO ONE (12:21)
--- NOTE | 2016-06-08 12:21 | CP.PCM.PN ---
<Anish Marte - Last Filed: 06/08/16 12:25> Subjective - Date & Time of Evaluation Date of Evaluation: 06/08/16 Time of Evaluation: 06:18 - Subjective Subjective: PGY-1 Medicine Note- Dr. Simpson's service Pt seen and examined in no acute distress. Pt is s/p robotic left radical nephrectomy. Pt states that he has some diffuse abdominal pain; though patient has not been asking for pain medications and was thus instructed to do so. Patient denies bowel movements. He states that he had his last bowel movement before the surgery. Patient is using incentive spirometry. He denies chest pain , subjective fevers or chills, nausea, vomiting, palpitations, paresthesias, hematuria, dysuria, hematuria or headaches at this time. Objective - Vital Signs/Intake and Output Vital Signs (last 24 hours): Temp Pulse Resp BP Pulse Ox 98.7 F 88 20 163/87 H 95 06/08/16 07:28 06/08/16 07:28 06/08/16 07:28 06/08/16 07:28 06/08/16 07:28 Intake and Output: 06/08/16 06/08/16 06:59 18:59 Intake Total 850 Balance 850 - Medications Medications: Current Medications Amlodipine Besylate (Norvasc) 10 mg PO DAILY [facility] Last Admin: 06/08/16 09:11 Dose: 10 mg Docusate Sodium (Colace) 100 mg PO TID [facility] Last Admin: 06/08/16 09:10 Dose: 100 mg Hydralazine HCl (Apresoline) 50 mg PO Q8 [facility] Last Admin: 06/08/16 05:12 Dose: 50 mg Ceftriaxone Sodium (Rocephin Iv 1 Gm Duplex) 50 mls @ 100 mls/hr IVPB Q12 [facility] Last Admin: 06/08/16 09:11 Dose: 100 mls/hr Potassium Chloride/Dextrose/Sod Cl (Potassium Chl 20 Meq In D5-1/2ns) 1,000 mls @ 50 mls/hr IV .Q20H [facility] Insulin Aspart (Novolog) 0 unit SC ACHS [facility] PRN Reason: Protocol Last Admin: 06/08/16 07:43 Dose: Not Given Oxycodone/Acetaminophen (Percocet 5/325 Mg Tab) 1 tab PO Q4H PRN PRN Reason: Pain, moderate (4-7) Stop: 06/11/16 13:01 Pantoprazole Sodium (Protonix Inj) 40 mg IVP DAILY [facility] Last Admin: 06/08/16 09:11 Dose: 40 mg Saccharomyces Boulardii (Florastor) 250 mg PO BID [facility] Last Admin: 06/07/16 17:53 Dose: 250 mg - Labs Labs: 06/08/16 08:48 06/08/16 08:48 PT 14.9 SECONDS (9.7-12.2) H 06/02/16 07:20 INR 1.3 06/02/16 07:20 APTT 32 SECONDS (21-34) 06/02/16 07:20 - Constitutional Appears: Non-toxic, No Acute Distress - Head Exam Head Exam: ATRAUMATIC, NORMAL INSPECTION, NORMOCEPHALIC - Eye Exam Eye Exam: EOMI, Normal appearance, PERRL Pupil Exam: NORMAL ACCOMODATION, PERRL - ENT Exam ENT Exam: Mucous Membranes Moist - Neck Exam Neck Exam: Full ROM - Respiratory Exam Respiratory Exam: NORMAL BREATHING PATTERN. absent: Wheezes - Cardiovascular Exam Cardiovascular Exam: +S1, +S2 - GI/Abdominal Exam GI & Abdominal Exam: Guarding, Soft, Tenderness (diffuse ) - Extremities Exam Extremities Exam: Full ROM, Normal Capillary Refill. absent: Calf Tenderness - Back Exam Back Exam: Full ROM - Neurological Exam Neurological Exam: Alert, Awake, CN II-XII Intact, Oriented x3 - Psychiatric Exam Psychiatric exam: Normal Affect, Normal Mood - Skin Skin Exam: Dry, Intact, Normal Color, Warm Assessment and Plan (1) Abdominal pain Status: Acute (2) Renal mass Status: Acute (3) Hypertension Status: Chronic (4) [place] (acute kidney injury) Status: Acute (5) Hematuria Status: Acute (6) Diabetes mellitus Status: Chronic (7) Prophylactic measure Status: Acute - Assessment and Plan (Free Text) Assessment: S/P Left radical Nephrectomy Assessment and Plan: * CT imaging (06/01/16): 9.5 x 7.1 x 5.9 cm heterogenous solid lesion noted on US and CT scan in the left kidney. Possible solid renal cell carcinoma with internal necrotic and/or hemorrhagic components. Interval enlargement of the lesion with prominent peripheric fat stranding and fluid surrounding left kidney. Possible acute hemorrhage. * Bladder US- 8.5 cm left upper pole renal mass demonstrated on CT. No significant postvoid residual in bladder . F/U full report * Consult to Urology Dr. Leta Garcia- F/U reccs * Dr. Clinton referral per Dr. Garcia- Kushal to keep SBP btwn 120 and 130. Will titrate as needed. * Hold NSAIDs * Urine culture (06/01/16): No growth * Blood culture (06/02/16): No growth X48 hours * F/U pathology * F/U recommendations Dr. Morris ( [facility]). F/U histopathology. * Pain control Percocet Q 4 PRN, Status: Acute Dysuria Assessment and Plan: * Improved * Rocephin 1 gram IV q 12 hours (active since 06/02/16) * Urine culture (06/01/16): no growth * CT imaging (06/01/16): 9.5 X7.1X5.9 cm heterogenous solid lesion noted on US and CT scan in the left kidney. Possible solid renal cell carcinoma with internal necrotic and/or hemorrhagic components. interval enlargement of the lesion with prominent peripheric fat stranding and fluid surrounding left kidney. Possible cute hemorrhage * Follow-up with urology Hypertension Assessment and Plan: * Improved * Amlodipine, Hydralazine; Continue to monitor * Monitor blood pressure and adjust bp meds * Echo LVEF ~55%. Refer to final read * F/U Nephro recommendations as noted above Status: Chronic [place] (acute kidney injury) Assessment and Plan: * D 5 1/2 ns with Potassium @ 50 mls. Monitor BP. Adjust fluid rate as needed * CT imaging (06/01/16): 9.5 X7.1X5.9 cm heterogenous solid lesion noted on US and CT scan in the left kidney. Possible solid renal cell carcinoma with internal necrotic and/or hemorrhagic components. interval enlargement of the lesion with prominent peripheric fat stranding and fluid surroudnging left kidney. Possible cute hemorrhage * Pelvic US (06/02/16): 8.5 cm left upper pole renal mass, demonstrated on CT examination, No significant post void residual within urinary bladder * Bladder PRN Status: Acute Hematuria Assessment and Plan: * One episode 4 days prior to admission which appears to have resolved. * UA on admission positive for blood * Urine culture shows no growth * CT imaging (06/01/16): 9.5 X7.1X5.9 cm heterogenous solid lesion noted on US and CT scan in the left kidney. Possible solid renal cell carcinoma with internal necrotic and/or hemorrhagic components. interval enlargement of the lesion with prominent peripheric fat stranding and fluid surrounding left kidney. Possible cute hemorrhage * Pelvic US (06/02/16): 8.5 cm left upper pole renal mass, demonstrated on CT examination, No significant post void residual within urinary bladder * F/U Urology * Hold NSAIDs at this time due to risk of further bleed * Hgb stable Status: Acute Diabetes mellitus Assessment and Plan: * NISS, Metformin held * Accuchecks QAC and HS * HgbA1c: 6.5 controlled Status: Chronic Leukocytosis Assessment and Plan: * Urine culture (06/01/16): No growth * Blood culture (06/02/16): No growth X48 hours * Chest xray (05/2716): mild venous congestion * IV abx: Rocephin 1 gram IV Q 12hours Status: Acute Constipation Assessment and Plan: * Milk of Mag 60 ml PO once * Encourage fluid intake * Monitor for BMs Status: Acute Prophylactic measure Assessment and Plan: * SCDs * VTE contraindicated due to genitourinary bleed * Protonix 40mg IV q daily Status: Acute <Eugene Simpson H - Last Filed: 06/08/16 15:50> Objective - Vital Signs/Intake and Output Vital Signs (last 24 hours): Temp Pulse Resp BP Pulse Ox 98.7 F 88 20 163/87 H 95 06/08/16 07:28 06/08/16 07:28 06/08/16 07:28 06/08/16 07:28 06/08/16 07:28 Intake and Output: 06/08/16 06/08/16 06:59 18:59 Intake Total 850 1350 Balance 850 1350 - Medications Medications: Current Medications Amlodipine Besylate (Norvasc) 10 mg PO DAILY [facility] Last Admin: 06/08/16 09:11 Dose: 10 mg Docusate Sodium (Colace) 100 mg PO TID [facility] Last Admin: 06/08/16 13:05 Dose: 100 mg Hydralazine HCl (Apresoline) 50 mg PO Q8 [facility] Last Admin: 06/08/16 13:06 Dose: 50 mg Ceftriaxone Sodium (Rocephin Iv 1 Gm Duplex) 50 mls @ 100 mls/hr IVPB Q12 [facility] Last Admin: 06/08/16 09:11 Dose: 100 mls/hr Potassium Chloride/Dextrose/Sod Cl (Potassium Chl 20 Meq In D5-1/2ns) 1,000 mls @ 50 mls/hr IV .Q20H [facility] Last Admin: 06/08/16 13:10 Dose: Not Given Insulin Aspart (Novolog) 0 unit SC ACHS [facility] PRN Reason: Protocol Last Admin: 06/08/16 12:45 Dose: Not Given Oxycodone/Acetaminophen (Percocet 5/325 Mg Tab) 1 tab PO Q4H PRN PRN Reason: Pain, moderate (4-7) Stop: 06/11/16 13:01 Pantoprazole Sodium (Protonix Inj) 40 mg IVP DAILY [facility] Last Admin: 06/08/16 09:11 Dose: 40 mg Saccharomyces Boulardii (Florastor) 250 mg PO BID [facility] Last Admin: 06/08/16 12:46 Dose: 250 mg - Labs Labs: 06/08/16 08:48 06/08/16 08:48 PT 14.9 SECONDS (9.7-12.2) H 06/02/16 07:20 INR 1.3 06/02/16 07:20 APTT 32 SECONDS (21-34) 06/02/16 07:20 Attending/Attestation - Attestation I have personally seen and examined this patient.: Yes I have fully participated in the care of the patient.: Yes I have reviewed all pertinent clinical information, including history, physical exam and plan: Yes Notes (Text): Medical Attending: Patient was seen and examined by me and the resident, Agree with the above note by the resident. He is status post robotic nephrectomy. The incsional area appear clean and dressing is dry. Patient was reporting some pain, continue with pain medication. His Hgb is stable and not dropping. WBC is 11, he is still on IV abx at this time. Pending pathology reports at this time Eugene Simpson
[2016-06-08] MEDS: Saccharomyces Boulardi 250 mg Cap PO SCH ×2 (12:46→17:57)
--- NOTE | 2016-06-08 17:13 | CP.PCM.PN ---
Subjective - Date & Time of Evaluation Date of Evaluation: 06/08/16 Time of Evaluation: 16:00 - Subjective Subjective: No complaints. Objective - Vital Signs/Intake and Output Vital Signs (last 24 hours): Temp Pulse Resp BP Pulse Ox 98.7 F 88 20 163/87 H 95 06/08/16 07:28 06/08/16 07:28 06/08/16 07:28 06/08/16 07:28 06/08/16 07:28 Intake and Output: 06/08/16 06/08/16 06:59 18:59 Intake Total 850 1350 Balance 850 1350 - Medications Medications: Current Medications Amlodipine Besylate (Norvasc) 10 mg PO DAILY [facility] Last Admin: 06/08/16 09:11 Dose: 10 mg Docusate Sodium (Colace) 100 mg PO TID [facility] Last Admin: 06/08/16 13:05 Dose: 100 mg Hydralazine HCl (Apresoline) 50 mg PO Q8 [facility] Last Admin: 06/08/16 13:06 Dose: 50 mg Ceftriaxone Sodium (Rocephin Iv 1 Gm Duplex) 50 mls @ 100 mls/hr IVPB Q12 [facility] Last Admin: 06/08/16 09:11 Dose: 100 mls/hr Potassium Chloride/Dextrose/Sod Cl (Potassium Chl 20 Meq In D5-1/2ns) 1,000 mls @ 50 mls/hr IV .Q20H [facility] Last Admin: 06/08/16 13:10 Dose: Not Given Insulin Aspart (Novolog) 0 unit SC ACHS [facility] PRN Reason: Protocol Last Admin: 06/08/16 12:45 Dose: Not Given Oxycodone/Acetaminophen (Percocet 5/325 Mg Tab) 1 tab PO Q4H PRN PRN Reason: Pain, moderate (4-7) Stop: 06/11/16 13:01 Pantoprazole Sodium (Protonix Inj) 40 mg IVP DAILY [facility] Last Admin: 06/08/16 09:11 Dose: 40 mg Saccharomyces Boulardii (Florastor) 250 mg PO BID [facility] Last Admin: 06/08/16 12:46 Dose: 250 mg - Labs Labs: 06/08/16 08:48 06/08/16 08:48 PT 14.9 SECONDS (9.7-12.2) H 06/02/16 07:20 INR 1.3 04/28/17 07:20 APTT 32 SECONDS (21-34) 06/02/16 07:20 - Head Exam Head Exam: ATRAUMATIC - Eye Exam Eye Exam: Normal appearance - ENT Exam ENT Exam: Mucous Membranes Dry - Respiratory Exam Respiratory Exam: NORMAL BREATHING PATTERN - Cardiovascular Exam Cardiovascular Exam: +S1, +S2 - GI/Abdominal Exam GI & Abdominal Exam: Normal Bowel Sounds - Extremities Exam Extremities Exam: Normal Inspection Assessment and Plan (1) Renal mass Assessment & Plan: s/p nephrectomy path consistent with renal cell carcinoma; negative margins will check CT chest to complete staging Status: Acute (2) Anemia Assessment & Plan: improving Status: Acute
--- NOTE | 2016-06-08 18:41 | CT ---
PROCEDURE: CT Chest without contrast HISTORY: renal cell cancer staging COMPARISON: None. TECHNIQUE: Contiguous axial images were obtained through the chest without intravenous contrast enhancement. Sagittal and coronal reconstructions were performed. Radiation dose (DLP): 834.93 mGy-cm. This CT exam was performed using one or more of the following dose reduction techniques: Automated exposure control, adjustment of the mA and/or kV according to patient size, and/or use of iterative reconstruction technique. FINDINGS: LUNGS: 8 mm pulmonary nodule superior segment right lower lobe -as ago esophageal recess region. No additional pulmonary nodules or suspicious masses. Atelectasis at both bases presumably postoperative. MEDIASTINUM: Unremarkable thoracic aorta. No aneurysm. Normal sized heart. Main pulmonary artery unremarkable. No vascular congestion. No lymphadenopathy. PLEURA: Pleural thickening minor fissure. BONES: No fracture. No destructive lesion. UPPER ABDOMEN: Free intraperitoneal air related to recent nephrectomy. Postoperative findings in the left renal fossa are incompletely visualized. Dominant finding is postoperative fluid, seroma measuring 4.9 x 7 cm. OTHER FINDINGS: None. IMPRESSION: Solitary subcentimeter pulmonary nodule superior segment right lower lobe. Postoperative findings including atelectasis at the lung bases and postoperative free air.
--- NOTE | 2016-06-08 23:35 | PCM.URO ---
Urology Progress Note - General General: Tolerating Diet - Subjective Abdominal Pain: Yes Flank Pain: No Nausea: No Vomiting: No Voiding Well: Yes (catheter removed this am) Dysuria: No Hematuria: No [place]: Yes Dsypnea: No Chest Pain: No Fever & Chills: No - Objective Lab Studies: Reviewed Lab Results Last 24 Hours: Laboratory Results - last 24 hr 06/08/16 06/08/16 06/08/16 07:18 08:48 08:48 WBC 11.4 H RBC 5.05 Hgb 13.0 Hct 41.9 MCV 83.0 MCH 25.8 L MCHC 31.1 L RDW 14.5 Plt Count 281 MPV 9.5 Neut % (Auto) 79.4 H Lymph % (Auto) 12.4 L [place] % (Auto) 6.4 Eos % (Auto) 1.3 Baso % (Auto) 0.5 Neut # 9.0 H Lymph # 1.4 [place] # 0.7 Eos # 0.1 Baso # 0.1 Sodium 137 Potassium 3.7 Chloride 100 Carbon Dioxide 26 Anion Gap 15 BUN 11 Creatinine 1.5 Est GFR ( Amer) 56 Est GFR (Non-Af Amer) 47 POC Glucose (mg/dL) 149 H Random Glucose 142 H Calcium 8.8 Phosphorus 2.5 Magnesium 2.0 Total Bilirubin 1.6 H AST 22 ALT 24 Alkaline Phosphatase 69 Total Protein 7.5 Albumin 4.0 Globulin 3.5 Albumin/Globulin Ratio 1.1 06/08/16 06/08/16 06/08/16 11:01 16:25 21:17 WBC RBC Hgb Hct MCV MCH MCHC RDW Plt Count MPV Neut % (Auto) Lymph % (Auto) [place] % (Auto) Eos % (Auto) Baso % (Auto) Neut # Lymph # [place] # Eos # Baso # Sodium Potassium Chloride Carbon Dioxide Anion Gap BUN Creatinine Est GFR ( Amer) Est GFR (Non-Af Amer) POC Glucose (mg/dL) 144 H 153 H 153 H Random Glucose Calcium Phosphorus Magnesium Total Bilirubin AST ALT Alkaline Phosphatase Total Protein Albumin Globulin Albumin/Globulin Ratio Intake & Output: Intake & Output 06/08/16 06/08/16 06/09/16 06:59 18:59 06:59 Intake Total 850 1350 Balance 850 1350 Intake: Intake, IV Amount 800 450 Right Hand 800 450 Oral 900 Other 50 Other: # Voids Urine, Voided 4 # Bowel Movements 0 Vital Signs: Vital Signs - 24 hr 06/08/16 06/08/16 00:00 07:28 Temperature 98.1 F 98.7 F Pulse Rate 70 88 Respiratory 20 20 Rate Blood Pressure 153/82 H 163/87 H O2 Sat by Pulse 96 95 Oximetry - Physical Exam Abdominal Exam: Non-Distended. absent: Soft, Non-Tender (mild incisional tenderness.) Bowel Sounds: Hypoactive Dressing: Dry, Intact Back: No CVA Tenderness Genitalia: Without Inflammation Urine Color: Yellow Extremities: Normal: Bilateral - Plan Ambulation - Out of Bed: Yes Intake & Output: Yes See Orders: Yes - Date & Time of Note Date: 06/07/16 Time: 15:30
--- NOTE | 2016-06-08 23:39 | PN ---
DATE: 06/08/2016 LOCATION: The patient is located in room 356, bed A. REQUESTING PHYSICIAN: Dr. Philomena Coleman. REASON FOR FOLLOWUP: Hypertension, left renal mass, diabetes, status post robotic left radical nephr ectomy and increased BUN and creatinine. HISTORY OF PRESENT ILLNESS: The patient is a 66-year-old elderly male with a history of hyp ertension, diabetes with large left renal mass and the patient underwent robotic radical left nephrec oj 2 days ago. The patient is complaining of slight pain and also complains of constipation. Brady es any nausea, vomiting. Denies any swelling of the legs. Denies any dysuria or frequency or any he maturia. PHYSICAL EXAMINATION: VITAL SIGNS: As follows: Blood pressure 163/87, pulse 88, respiration 20, temperature 98.7, saturat ion 95%, height 5 feet 7 inches and weight is 210 pounds. GENERAL: The patient is a 66-year-old elderly male, moderately built, moderately nourished, not in a cute distress. HEENT: Pupils normal, reactive to light and accommodation. Conjunctivae pink. Sclerae anicteric. Tongue is moist. NECK: Trachea midline. LUNGS: Symmetric on both sides. Bilateral breath sounds present. Clear on auscultation. CARDIOVASCULAR: [place] in the fifth intercostal space midclavicular line. S1 and S2 audible. No murm ur or gallop. ABDOMEN: Normal in appearance. Status post left radical nephrectomy with a dressing present. Bowel sounds present. No guarding, no rigidity. CENTRAL NERVOUS SYSTEM: The patient is alert, awake, oriented x 3, nonfocal on examination. Cranial nerves II through XII grossly intact. Sensory and motor system is within normal limits. EXTREMITIES: No cyanosis, no clubbing, no edema. CURRENT MEDICATIONS: Include as follows: Hydralazine 50 mg p.o. q. 8 hours, Colace 100 mg p.o. t.i. d., Florastor 250 mg p.o. b.i.d., Norvasc 10 mg daily, NovoLog for sliding scale, Percocet 1 tablet 3 25 mg p.o. q. 4 hours p.r.n., D5 half normal saline with 20 mEq KCl at 50 mL per hour, Protonix 40 mg p.o. daily and Rocephin 1 gram daily. LABORATORY DATA: Include as follows: As of 06/08/2016, WBC 11.4, hemoglobin 13, hematocrit is 41.9, platelets 281. Sodium is 137, potassium 3.7, chloride 100, CO2 26, BUN 11, creatinine 1.1, glucose 142, calcium 8.8, phosphorus 2.9, magnesium is 2. Total bilirubin 1.6, AST 22, ALT 24, alkaline phos phatase 69, total bilirubin 7.5, albumin is 4.0. As of 06/01, the urine culture was negative and blo od culture x 2 was negative day on #5 as of 06/02/2016. SUMMARY: In summary, the patient is a 66-year-old elderly male with history of hypertension , diabetes, left renal mass, status post radical nephrectomy, robotic, with increased BUN and creatin ine. IMPRESSION AND PLAN: 1. Status post radical nephrectomy, rule out renal malignancy. 2. Hypertension. Blood pressure is stable. Titrate hydralazine as needed and continue Norvasc and hydralazine and low sodium diet. 3. Acute renal failure secondary to radical nephrectomy. Continue to monitor BMP. Will follow with you. Follow up with pathology report. Thank you for allowing me to participate in your patient's care. Maryam Clinton MD cc: [id number] TT: 06/08/2016 23:37:51 Confirmation # [id number] Dictation # [id number] martínez
[2016-06-09] MEDS: Potassium Ch 20mEq in D5-1/2NS 1,000 ML IV SCH ×2 (02:30→21:09)
[2016-06-09] MEDS: Oxycodone/Acetaminophen 5/325 mg Tab PO PRN ×2 (04:20→17:58)
[2016-06-09 08:27] LABS: BASO # 0.1 K/uL (0.0-0.2); BASO % 0.5 % (0.0-2.0); EOS # 0.2 K/uL (0.0-0.7); EOS % 1.8 % (0.0-4.0); HEMATOCRIT 39.8 % (35.0-51.0); LYMPH # 1.6 K/uL (1.0-4.3); LYMPH % 12.5 % (20.0-40.0); MEAN CELL VOLUME 82.6 fL (80.0-94.0); MEAN CORPUSCULAR HEMOGLOBIN 26.6 pg (27.0-31.0); MEAN CORPUSCULAR HGB CONC 32.2 g/dL (33.0-37.0); MEAN PLATELET VOLUME 9.4 fL (7.2-11.7); MONO # 0.8 K/uL (0.0-0.8); MONO % 6.1 % (0.0-10.0); RED CELL DISTRIBUTION WIDTH 14.8 % (11.5-14.5); WHITE BLOOD COUNT 12.6 K/uL (4.8-10.8)
[2016-06-09 08:37] LABS: CHLORIDE 98 mmol/L (98-107)
[2016-06-09 08:38] LABS: POTASSIUM 3.5 mmol/L (3.6-5.2); SODIUM 136 mmol/L (132-148)
[2016-06-09 08:40] LABS: ALB/GLOB RATIO 1.1 (1.0-2.1); AST/SGOT 20 U/L (17-59); BILIRUBIN,TOTAL 1.6 mg/dL (0.2-1.3); BLOOD UREA NITROGEN 12 mg/dL (9-20); CARBON DIOXIDE 25 mmol/L (22-30); GFR AFRICAN-AMERICAN > 60; TOTAL PROTEIN 7.3 g/dL (6.3-8.3)
[2016-06-09 08:41] LABS: ALKALINE PHOSPHATASE 76 U/L (38-126); ALT/SGPT 13 U/L (21-72); CALCIUM 8.5 mg/dl (8.6-10.4); GLUCOSE,RANDOM 127 mg/dL (75-110); MAGNESIUM 2.4 mg/dL (1.6-2.3); PHOSPHOROUS 2.8 mg/dL (2.5-4.5)
[2016-06-09] MEDS ORDERED: Potassium Chloride 20 mEq ER Tab PO ONE ×2 (09:15→13:45)
--- NOTE | 2016-06-09 11:20 | CP.PCM.PN ---
Subjective - Date & Time of Evaluation Date of Evaluation: 06/09/16 Time of Evaluation: 11:19 - Subjective Subjective: pt seen and examined, full consult is dictated #[id number] abd. distention r/o psedo obstruction check abd. xray to r/o SBO Objective - Vital Signs/Intake and Output Vital Signs (last 24 hours): Temp Pulse Resp BP Pulse Ox 98.4 F 80 20 161/87 H 93 L 06/09/16 08:30 06/09/16 08:30 06/09/16 08:30 06/09/16 08:30 06/09/16 08:30 - Medications Medications: Current Medications Amlodipine Besylate (Norvasc) 10 mg PO DAILY [facility] Last Admin: 06/08/16 09:11 Dose: 10 mg Docusate Sodium (Colace) 100 mg PO TID [facility] Last Admin: 06/08/16 17:58 Dose: 100 mg Hydralazine HCl (Apresoline) 50 mg PO Q8 [facility] Last Admin: 06/09/16 05:28 Dose: 50 mg Ceftriaxone Sodium (Rocephin Iv 1 Gm Duplex) 50 mls @ 100 mls/hr IVPB Q12 [facility] Last Admin: 06/08/16 22:05 Dose: 100 mls/hr Potassium Chloride/Dextrose/Sod Cl (Potassium Chl 20 Meq In D5-1/2ns) 1,000 mls @ 50 mls/hr IV .Q20H [facility] Last Admin: 06/08/16 18:03 Dose: 50 mls/hr Insulin Aspart (Novolog) 0 unit SC ACHS [facility] PRN Reason: Protocol Last Admin: 06/08/16 22:10 Dose: Not Given Oxycodone/Acetaminophen (Percocet 5/325 Mg Tab) 1 tab PO Q4H PRN PRN Reason: Pain, moderate (4-7) Stop: 06/11/16 13:01 Last Admin: 06/09/16 04:20 Dose: 1 tab Pantoprazole Sodium (Protonix Inj) 40 mg IVP DAILY [facility] Last Admin: 06/08/16 09:11 Dose: 40 mg Saccharomyces Boulardii (Florastor) 250 mg PO BID [facility] Last Admin: 06/08/16 17:57 Dose: 250 mg - Labs Labs: 06/09/16 08:05 06/09/16 08:05 PT 14.9 SECONDS (9.7-12.2) H 06/02/16 07:20 INR 1.3 06/02/16 07:20 APTT 32 SECONDS (21-34) 06/02/16 07:20
[2016-06-09] MEDS: (Novolog) Insulin Aspart, Recombinant 100 u/ml 10 ml vial SC SCH ×4 (12:18→21:42)
[2016-06-09] MEDS: cefTRIAXone IV 1 gm in Dextros 50 ML IVPB SCH ×2 (12:33→21:16)
[2016-06-09] MEDS: Saccharomyces Boulardi 250 mg Cap PO SCH ×2 (12:34→18:19)
--- NOTE | 2016-06-09 13:36 | PCM.URO ---
Urology Progress Note - General General: Tolerating Diet - Subjective Abdominal Pain: Yes (mild) Flank Pain: No Nausea: No Vomiting: No Voiding Well: Yes Dysuria: No Hematuria: No [place]: Yes Dsypnea: No Chest Pain: No Fever & Chills: No - Objective Lab Studies: Reviewed Lab Results Last 24 Hours: Laboratory Results - last 24 hr 06/08/16 06/08/16 06/09/16 16:25 21:17 07:07 WBC RBC Hgb Hct MCV MCH MCHC RDW Plt Count MPV Neut % (Auto) Lymph % (Auto) [place] % (Auto) Eos % (Auto) Baso % (Auto) Neut # Lymph # [place] # Eos # Baso # Sodium Potassium Chloride Carbon Dioxide Anion Gap BUN Creatinine Est GFR ( Amer) Est GFR (Non-Af Amer) POC Glucose (mg/dL) 153 H 153 H 141 H Random Glucose Calcium Phosphorus Magnesium Total Bilirubin AST ALT Alkaline Phosphatase Total Protein Albumin Globulin Albumin/Globulin Ratio 06/09/16 06/09/16 06/09/16 08:05 08:05 11:16 WBC 12.6 H RBC 4.82 Hgb 12.8 Hct 39.8 MCV 82.6 MCH 26.6 L MCHC 32.2 L RDW 14.8 H Plt Count 293 MPV 9.4 Neut % (Auto) 79.1 H Lymph % (Auto) 12.5 L [place] % (Auto) 6.1 Eos % (Auto) 1.8 Baso % (Auto) 0.5 Neut # 9.9 H Lymph # 1.6 [place] # 0.8 Eos # 0.2 Baso # 0.1 Sodium 136 Potassium 3.5 L Chloride 98 Carbon Dioxide 25 Anion Gap 16 BUN 12 Creatinine 1.4 Est GFR ( Amer) > 60 Est GFR (Non-Af Amer) 51 POC Glucose (mg/dL) 164 H Random Glucose 127 H Calcium 8.5 L Phosphorus 2.8 Magnesium 2.4 H Total Bilirubin 1.6 H AST 20 ALT 13 L D Alkaline Phosphatase 76 Total Protein 7.3 Albumin 3.7 Globulin 3.5 Albumin/Globulin Ratio 1.1 06/09/16 11:26 WBC RBC Hgb Hct MCV MCH MCHC RDW Plt Count MPV Neut % (Auto) Lymph % (Auto) [place] % (Auto) Eos % (Auto) Baso % (Auto) Neut # Lymph # [place] # Eos # Baso # Sodium Potassium Chloride Carbon Dioxide Anion Gap BUN Creatinine Est GFR ( Amer) Est GFR (Non-Af Amer) POC Glucose (mg/dL) 165 H Random Glucose Calcium Phosphorus Magnesium Total Bilirubin AST ALT Alkaline Phosphatase Total Protein Albumin Globulin Albumin/Globulin Ratio Intake & Output: Intake & Output 06/08/16 06/09/16 06/09/16 18:59 06:59 18:59 Intake Total 1350 Balance 1350 Intake: Intake, IV Amount 450 Right Hand 450 Oral 900 Other: # Voids Urine, Voided 4 # Bowel Movements 0 Vital Signs: Vital Signs - 24 hr 06/09/16 06/09/16 00:00 08:30 Temperature 98.7 F 98.4 F Pulse Rate 86 80 Respiratory 20 20 Rate Blood Pressure 148/84 161/87 H O2 Sat by Pulse 95 93 L Oximetry - Physical Exam Abdominal Exam: Soft, Non-Tender, Non-Distended Bowel Sounds: Normal Dressing: Dry, Intact Back: No CVA Tenderness Genitalia: Without Inflammation Urine Color: Yellow Extremities: Normal: Bilateral - Plan Advance Diet: Yes Ambulation - Out of Bed: Yes Additional Information: IMP: PROGRESSING WELL. PATH: RCC, GRADE 3, MARGINS NEGATIVE. REC/ PLAN: LAXATIVE, MONITOR GI FUNCTION. MONITOR RENAL FUNCTION. DISCUSSED W PT AND FAMILY - Date & Time of Note Date: 06/09/16 Time: 13:36
--- NOTE | 2016-06-09 17:25 | CP.PCM.PN ---
<Yolanda Daíz - Last Filed: 06/09/16 17:15> Subjective - Date & Time of Evaluation Date of Evaluation: 06/09/16 Time of Evaluation: 17:16 - Subjective Subjective: Patient seen and examined at bedside. Patient is sp robotic left radical nephrectomy, POD#3. He admits to mild pain to lower abdomen/pelvic region. Patient admits to using incentive spirometry. He denies fever, chills, chest pain, shortness of breath, palpitations, dysuria and hematuria. Patient states he is eating minimally. He has not yet had a bowel movement. Per nurse, patient is voiding well. Objective - Vital Signs/Intake and Output Vital Signs (last 24 hours): Temp Pulse Resp BP Pulse Ox 99.7 F H 106 H 20 135/90 96 06/09/16 15:20 06/09/16 15:20 06/09/16 15:20 06/09/16 15:20 06/09/16 15:20 Intake and Output: 06/09/16 06/09/16 06:59 18:59 Intake Total 650 Output Total 300 Balance 350 - Medications Medications: Current Medications Amlodipine Besylate (Norvasc) 10 mg PO DAILY [facility] Last Admin: 06/09/16 12:34 Dose: 10 mg Docusate Sodium (Colace) 100 mg PO TID [facility] Last Admin: 06/09/16 16:16 Dose: 100 mg Hydralazine HCl (Apresoline) 50 mg PO Q8 [facility] Last Admin: 06/09/16 16:16 Dose: 50 mg Ceftriaxone Sodium (Rocephin Iv 1 Gm Duplex) 50 mls @ 100 mls/hr IVPB Q12 [facility] Last Admin: 06/09/16 12:33 Dose: 100 mls/hr Potassium Chloride/Dextrose/Sod Cl (Potassium Chl 20 Meq In D5-1/2ns) 1,000 mls @ 50 mls/hr IV .Q20H [facility] Last Admin: 06/08/16 18:03 Dose: 50 mls/hr Insulin Aspart (Novolog) 0 unit SC ACHS [facility] PRN Reason: Protocol Last Admin: 06/09/16 12:34 Dose: 2 unit Metoprolol Tartrate (Lopressor) 12.5 mg PO BID [facility] Oxycodone/Acetaminophen (Percocet 5/325 Mg Tab) 1 tab PO Q4H PRN PRN Reason: Pain, moderate (4-7) Stop: 06/11/16 13:01 Last Admin: 06/09/16 04:20 Dose: 1 tab Pantoprazole Sodium (Protonix Inj) 40 mg IVP DAILY [facility] Last Admin: 06/09/16 12:33 Dose: 40 mg Saccharomyces Boulardii (Florastor) 250 mg PO BID [facility] Last Admin: 06/09/16 12:34 Dose: 250 mg - Labs Labs: 06/09/16 08:05 06/09/16 08:05 PT 14.9 SECONDS (9.7-12.2) H 06/02/16 07:20 INR 1.3 06/02/16 07:20 APTT 32 SECONDS (21-34) 06/02/16 07:20 - Constitutional Appears: Non-toxic, No Acute Distress - Head Exam Head Exam: ATRAUMATIC, NORMAL INSPECTION, NORMOCEPHALIC - Eye Exam Eye Exam: EOMI, Normal appearance, PERRL - ENT Exam ENT Exam: Mucous Membranes Moist - Neck Exam Neck Exam: Full ROM, Normal Inspection - Respiratory Exam Respiratory Exam: Clear to Ausculation Bilateral, NORMAL BREATHING PATTERN. absent: Rales, Rhonchi, Wheezes - Cardiovascular Exam Cardiovascular Exam: +S1, +S2. absent: Tachycardia - GI/Abdominal Exam GI & Abdominal Exam: Distended, Tenderness, Hypoactive Bowel Sounds - Extremities Exam Extremities Exam: Normal Inspection. absent: Pedal Edema, Tenderness - Neurological Exam Neurological Exam: Alert, Awake, Oriented x3 - Psychiatric Exam Psychiatric exam: Normal Affect, Normal Mood Assessment and Plan - Assessment and Plan (Free Text) Assessment: S/P Left radical Nephrectomy Assessment and Plan: * CT imaging (06/01/16): 9.5 x 7.1 x 5.9 cm heterogenous solid lesion noted on US and CT scan in the left kidney. Possible solid renal cell carcinoma with internal necrotic and/or hemorrhagic components. Interval enlargement of the lesion with prominent peripheric fat stranding and fluid surrounding left kidney. Possible acute hemorrhage. * Bladder US- 8.5 cm left upper pole renal mass demonstrated on CT. No significant postvoid residual in bladder . F/U full report * Consult to Urology Dr. Leta Garcia- F/U reccs * Dr. Clinton referral per Dr. Radha- Reccs to keep SBP btwn 120 and 130. 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 Morris ( [facility]). * Pain control Percocet Q 4 PRN, Status: Acute Dysuria Assessment and Plan: * Improved. Per nurse, patient voiding * Rocephin 1 gram IV q 12 hours (active since 06/02/16) * Urine culture (06/01/16): no growth * CT imaging (06/01/16): 9.5 X7.1X5.9 cm heterogenous solid lesion noted on US and CT scan in the left kidney. Possible solid renal cell carcinoma with internal necrotic and/or hemorrhagic components. interval enlargement of the lesion with prominent peripheric fat stranding and fluid surrounding left kidney. Possible cute hemorrhage * Follow-up with urology Hypertension Assessment and Plan: * Improved * Continue Norvasc 10 mg po daily and Hydralazine 50 mg po q8h * Start Lopressor 12.5 mg po BID * Monitor blood pressure and adjust bp meds * Echo LVEF ~55%. Refer to final read * F/U Nephro recommendations as noted above Status: Chronic [place] (acute kidney injury) Assessment and Plan: * D 5 1/2 ns with Potassium @ 50 mls. Monitor BP. Adjust fluid rate as needed * CT imaging (06/01/16): 9.5 X7.1X5.9 cm heterogenous solid lesion noted on US and CT scan in the left kidney. Possible solid renal cell carcinoma with internal necrotic and/or hemorrhagic components. interval enlargement of the lesion with prominent peripheric fat stranding and fluid surroudnging left kidney. Possible cute hemorrhage * Pelvic US (06/02/16): 8.5 cm left upper pole renal mass, demonstrated on CT examination, No significant post void residual within urinary bladder * Bladder PRN Status: Acute Hematuria Assessment and Plan: * Patient not currently having hematuria * One episode 4 days prior to admission which appears to have resolved. * UA on admission positive for blood * Urine culture shows no growth * CT imaging (06/01/16): 9.5 X7.1X5.9 cm heterogenous solid lesion noted on US and CT scan in the left kidney. Possible solid renal cell carcinoma with internal necrotic and/or hemorrhagic components. interval enlargement of the lesion with prominent peripheric fat stranding and fluid surrounding left kidney. Possible cute hemorrhage * Pelvic US (06/02/16): 8.5 cm left upper pole renal mass, demonstrated on CT examination, No significant post void residual within urinary bladder * F/U Urology * Hold NSAIDs at this time due to risk of further bleed * Hgb stable Status: Acute Diabetes mellitus Assessment and Plan: * NISS, Metformin held * Accuchecks QAC and HS * HgbA1c: 6.5 controlled Status: Chronic Leukocytosis Assessment and Plan: * Urine culture (06/01/16): No growth * Blood culture (06/02/16): No growth X48 hours * Chest xray (05/2716): mild venous congestion * IV abx: Rocephin 1 gram IV Q 12hours Status: Acute Constipation Assessment and Plan: * Patient has not had a BM since surgery. Abdomen distended and patient c/o pain. f/u abdomen flat plate x-ray to evaluate for obstruction * Milk of Mag 60 ml PO once * Encourage fluid intake * Monitor for BMs Status: Acute Prophylactic measure Assessment and Plan: * SCDs * VTE contraindicated due to genitourinary bleed * Protonix 40mg IV q daily Status: Acute <Eugene Simpson H - Last Filed: 06/10/16 07:13> Objective - Vital Signs/Intake and Output Vital Signs (last 24 hours): Temp Pulse Resp BP Pulse Ox 98.5 F 76 20 142/80 96 06/10/16 00:00 06/10/16 00:00 06/10/16 00:00 06/10/16 00:00 06/10/16 00:00 Intake and Output: 06/10/16 06/10/16 06:59 18:59 Intake Total 750 Output Total 1500 Balance -750 - Medications Medications: Current Medications Amlodipine Besylate (Norvasc) 10 mg PO DAILY [facility] Last Admin: 06/09/16 12:34 Dose: 10 mg Docusate Sodium (Colace) 100 mg PO TID [facility] Last Admin: 06/09/16 17:57 Dose: 100 mg Hydralazine HCl (Apresoline) 50 mg PO Q8 [facility] Last Admin: 06/10/16 05:50 Dose: 50 mg Ceftriaxone Sodium (Rocephin Iv 1 Gm Duplex) 50 mls @ 100 mls/hr IVPB Q12 [facility] Last Admin: 06/09/16 21:16 Dose: 100 mls/hr Potassium Chloride/Dextrose/Sod Cl (Potassium Chl 20 Meq In D5-1/2ns) 1,000 mls @ 50 mls/hr IV .Q20H [facility] Last Admin: 06/09/16 21:09 Dose: 50 mls/hr Insulin Aspart (Novolog) 0 unit SC ACHS [facility] PRN Reason: Protocol Last Admin: 06/09/16 21:42 Dose: Not Given Metoprolol Tartrate (Lopressor) 12.5 mg PO BID [facility] Last Admin: 06/09/16 17:57 Dose: 12.5 mg Oxycodone/Acetaminophen (Percocet 5/325 Mg Tab) 1 tab PO Q4H PRN PRN Reason: Pain, moderate (4-7) Stop: 06/11/16 13:01 Last Admin: 06/10/16 03:28 Dose: 1 tab Pantoprazole Sodium (Protonix Inj) 40 mg IVP DAILY [facility] Last Admin: 06/09/16 12:33 Dose: 40 mg Saccharomyces Boulardii (Florastor) 250 mg PO BID [facility] Last Admin: 06/09/16 18:19 Dose: 250 mg - Labs Labs: 06/09/16 08:05 06/09/16 08:05 PT 14.9 SECONDS (9.7-12.2) H 06/02/16 07:20 INR 1.3 06/02/16 07:20 APTT 32 SECONDS (21-34) 06/02/16 07:20 Attending/Attestation - Attestation I have personally seen and examined this patient.: Yes I have fully participated in the care of the patient.: Yes I have reviewed all pertinent clinical information, including history, physical exam and plan: Yes Notes (Text): 06/10/16 07:10 Medical attending: Patient was seen and examined by me, agrees the above note by medical liaison. He was not in any acute distress when we saw him, however he explains that he still has pain particularly over the left abdomen. As mentioned above he is status post nephrectomy. Currently pending the pathology results. At this time were monitoring the patient's hemoglobin as well as his creatinine. Currently hemoglobin is stable. Also is blood pressure is still on the high side, and likely this is also related. He is ready on Norvasc as well as hydralazine for blood pressure control. At this time he is getting pain medication as well. So add on an additional blood pressure medication for more control. Thank you very much, Eugene Simpson
--- NOTE | 2016-06-09 18:28 | RAD ---
PROCEDURE: Radiographs of the chest and abdomen (obstructive series) HISTORY: rule out obstruction COMPARISON: CT abdomen and pelvis without oral or IV contrast performed 06/01/16, abdominal radiographs performed 01/04/16 FINDINGS: CHEST: Examination limited by habitus and hypoinflation. Heart size appears top normal. Bibasilar atelectasis or infiltrates. No significant pleural effusion or definite pneumothorax. ABDOMEN AND PELVIS: Dilated loop bowel loops and air-fluid levels appear to involve both large and small bowel, large bowel to a larger extent. Appearance suspicious for ileus however obstruction cannot be excluded. Surgical sg are seen within the left lower abdomen. No acute osseous abnormality is detected. IMPRESSION: Dilated loop bowel loops and air-fluid levels appear to involve both large and small bowel, large bowel to a larger extent. Appearance suspicious for ileus however obstruction cannot be entirely excluded.
--- NOTE | 2016-06-09 23:27 | PN ---
DATE: 06/09/2016 LOCATION: Room 356, bed A. REASON FOR FOLLOWUP: Hypertension, diabetes, left renal mass status post robotic left nephrectomy and for followup. HISTORY OF PRESENT ILLNESS: The patient is a 66-year-old elderly obese male with a past medical history significant for long-standing hypertension, diabetes and left renal mass, which is getting worse since 12/2015 , who was admitted with hematuria and subsequently the patient agreed for the surgery and the patient underwent a robotic radical nephrectomy 3 days ago. The patient is complaining of abdominal distention and complains he did not move his bowels. He denies any nausea or vomiting. He denies any chest pain or palpitations. He denies any fever or cough. He denies any dysuria or frequency. He denies any gross hematuria and no swelling of the legs. Is significant for abdominal distention. PHYSICAL EXAMINATION: VITAL SIGNS: As follows: Blood pressure this morning 161/87, pulse 80, respirations 20, temperature 98.4, saturation 93%. Height 5 feet 7 inches and weight is 210 pounds. GENERAL: The patient is 66-year-old male, well built, well nourished, not in acute distress. HEENT: Pupils normal, reactive to light and accommodation. Conjunctivae pink. Sclerae anicteric. Tongue is moist. NECK: Trachea is midline. LUNGS: Symmetric on both sides. Bilateral breath sounds present. Clear on auscultation. CARDIOVASCULAR: [place] at the fifth intercostal space , midclavicular line. S1 and S2 audible. No murmur, no gallop. ABDOMEN: Normal in appearance but distended, soft, sluggish bowel sounds. No guarding, no rigidity. Dressing for the surgical site. CENTRAL NERVOUS SYSTEM: The patient is alert, awake, oriented x 3, nonfocal on examination. Cranial nerves II-XII grossly intact. Sensory and motor system is within normal limits. EXTREMITIES: No cyanosis, no clubbing, no edema. CURRENT MEDICATIONS: Include as follows: Hydralazine 50 mg p.o. q.8 hours, Colace 100 mg p.o. t.i.d., Florastor 250 mg p.o. b.i.d., Lopressor 12.5 mg p.o. b.i.d., Norvasc 10 mg daily, NovoLog for sliding scale, Percocet 1 tablet q.4 hours p.r.n., IV fluids of D5 half normal saline with 20 mEq at 50 mL per hour, Protonix 40 mg IV daily and Rocephin 1 gram q.12 hours. LABORATORY DATA: Include as follows, as of 06/09/2016: WBC 12.6, hemoglobin 12.8 , hematocrit is 39.8, platelets 293, sodium 136, potassium 3.5, chloride 98, CO2 of 25, BUN 12, creatinine 1.4, glucose is 127, calcium 8.5, phosphorus 2.8, magnesium 2.4, total bilirubin 1.6, AST is 20 and ALT is 13, alkaline phos is 76 , total protein 7.3 and albumin is 3.7. Abdominal x-ray this evening: Dilated bowel loops and air fluid levels appear to involve both the large and small bowel. Appearance suspicious for ileus, however, obstruction cannot be entirely excluded. IN SUMMARY: The patient is a 66-year-old elderly male with a history of hypertension, diabetes, left renal mass and status post robotic left nephrectomy on Percocet, complaining of not passing bowel with abdominal distention and slight colicky pain. 1. Hypertension. Blood pressure is slightly high. Continue hydralazine and Norvasc, and I agree with Lopressor. 2. Status post radical nephrectomy on the left side. Will follow up with the pathology report. 3. Abdominal distention, rule out small-bowel obstruction. The patient underwent an x-ray of the abdomen this evening consistent with small bowel loops and large bowel dilatation of the loops with air fluid levels. Would rule out ileus. Consider surgery evaluation. Consider NG tube placement and low Gomco suction. Will follow with you. Thank you for allowing me to participate in your patient' s care and consider to discontinue Percocet. Maryam Clinton MD cc: [id number] TT: 06/09/2016 23:26:29 Confirmation # [id number] Dictation # [id number] terry NAVARRO
--- NOTE | 2016-06-10 01:27 | CP.PCM.PN ---
<EstuardoSaúllane - Last Filed: 06/10/16 01:37> Subjective - Date & Time of Evaluation Date of Evaluation: 06/10/16 Time of Evaluation: 01:21 - Subjective Subjective: PGY 1 Medicine Note- Dr. Simpson's service Pt seen and examined in no acute distress. Patient is sp robotic left radical nephrectomy, POD#4. Patient is tolerating a diet. Patient states that he had a large watery bowel movement earlier. This too was confirmed by nursing. His pain is controlled. He states that he is ambulating and using incentive spirometry. He denies subjective fevers, chills, chest pain, shortness of breath , palpitations, paresthesias, headaches, dysuria, urinary frequency or hematuria at this time. Objective - Vital Signs/Intake and Output Vital Signs (last 24 hours): Temp Pulse Resp BP Pulse Ox 99.7 F H 106 H 20 135/90 96 06/09/16 15:20 06/09/16 15:20 06/09/16 15:20 06/09/16 15:20 06/09/16 15:20 Intake and Output: 06/09/16 06/10/16 18:59 06:59 Intake Total 650 750 Output Total 300 1500 Balance 350 -750 - Medications Medications: Current Medications Amlodipine Besylate (Norvasc) 10 mg PO DAILY [facility] Last Admin: 06/09/16 12:34 Dose: 10 mg Docusate Sodium (Colace) 100 mg PO TID [facility] Last Admin: 06/09/16 17:57 Dose: 100 mg Hydralazine HCl (Apresoline) 50 mg PO Q8 [facility] Last Admin: 06/09/16 21:19 Dose: 50 mg Ceftriaxone Sodium (Rocephin Iv 1 Gm Duplex) 50 mls @ 100 mls/hr IVPB Q12 [facility] Last Admin: 06/09/16 21:16 Dose: 100 mls/hr Potassium Chloride/Dextrose/Sod Cl (Potassium Chl 20 Meq In D5-1/2ns) 1,000 mls @ 50 mls/hr IV .Q20H [facility] Last Admin: 06/09/16 21:09 Dose: 50 mls/hr Insulin Aspart (Novolog) 0 unit SC ACHS [facility] PRN Reason: Protocol Last Admin: 06/09/16 21:42 Dose: Not Given Metoprolol Tartrate (Lopressor) 12.5 mg PO BID [facility] Last Admin: 06/09/16 17:57 Dose: 12.5 mg Oxycodone/Acetaminophen (Percocet 5/325 Mg Tab) 1 tab PO Q4H PRN PRN Reason: Pain, moderate (4-7) Stop: 06/11/16 13:01 Last Admin: 06/09/16 17:58 Dose: 1 tab Pantoprazole Sodium (Protonix Inj) 40 mg IVP DAILY [facility] Last Admin: 06/09/16 12:33 Dose: 40 mg Saccharomyces Boulardii (Florastor) 250 mg PO BID [facility] Last Admin: 06/09/16 18:19 Dose: 250 mg - Labs Labs: 06/09/16 08:05 06/09/16 08:05 PT 14.9 SECONDS (9.7-12.2) H 06/02/16 07:20 INR 1.3 06/02/16 07:20 APTT 32 SECONDS (21-34) 06/02/16 07:20 - Constitutional Appears: Non-toxic, No Acute Distress - Head Exam Head Exam: ATRAUMATIC, NORMAL INSPECTION, NORMOCEPHALIC - Eye Exam Eye Exam: EOMI, Normal appearance, PERRL Pupil Exam: NORMAL ACCOMODATION, PERRL - ENT Exam ENT Exam: Mucous Membranes Moist - Neck Exam Neck Exam: Full ROM - Respiratory Exam Respiratory Exam: NORMAL BREATHING PATTERN. absent: Wheezes - Cardiovascular Exam Cardiovascular Exam: REGULAR RHYTHM, +S1, +S2 - GI/Abdominal Exam GI & Abdominal Exam: Soft, Tenderness (with palpation), Normal Bowel Sounds - Extremities Exam Extremities Exam: Full ROM, Normal Inspection - Back Exam Back Exam: Full ROM, NORMAL INSPECTION - Neurological Exam Neurological Exam: Alert, Awake, CN II-XII Intact, Oriented x3 - Psychiatric Exam Psychiatric exam: Normal Affect, Normal Mood - Skin Skin Exam: Dry, Intact, Normal Color, Warm Assessment and Plan (1) Abdominal pain Status: Acute (2) Renal mass Status: Acute (3) Hypertension Status: Chronic (4) [place] (acute kidney injury) Status: Acute (5) Hematuria Status: Acute (6) Diabetes mellitus Status: Chronic (7) Prophylactic measure Status: Acute - Assessment and Plan (Free Text) Assessment: S/P Left radical Nephrectomy Assessment and Plan: * CT imaging (06/01/16): 9.5 x 7.1 x 5.9 cm heterogenous solid lesion noted on US and CT scan in the left kidney. Possible solid renal cell carcinoma with internal necrotic and/or hemorrhagic components. Interval enlargement of the lesion with prominent peripheric fat stranding and fluid surrounding left kidney. Possible acute hemorrhage. * Bladder US- 8.5 cm left upper pole renal mass demonstrated on CT. No significant postvoid residual in bladder . F/U full report * Consult to Urology Dr. Leta Garcia- F/U reccs * Dr. Clinton referral per Dr. Garcia- Kushal to keep SBP btwn 120 and 130. 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 Morris ( [facility]). * Pain control Percocet Q 4 PRN, Status: Acute Dysuria Assessment and Plan: * Improved. Per nurse, patient voiding * Rocephin 1 gram IV q 12 hours (active since 06/02/16) * Urine culture (06/01/16): no growth * CT imaging (06/01/16): 9.5 X7.1X5.9 cm heterogenous solid lesion noted on US and CT scan in the left kidney. Possible solid renal cell carcinoma with internal necrotic and/or hemorrhagic components. interval enlargement of the lesion with prominent peripheric fat stranding and fluid surrounding left kidney. Possible cute hemorrhage * Follow-up with urology Hypertension Assessment and Plan: * Improved * Continue Norvasc 10 mg po daily and Hydralazine 50 mg po q8h * Start Lopressor 12.5 mg po BID * Monitor blood pressure and adjust bp meds * Echo LVEF ~55%. Refer to final read * F/U Nephro recommendations as noted above Status: Chronic [place] (acute kidney injury) Assessment and Plan: * D 5 1/2 ns with Potassium @ 50 mls. Monitor BP. Adjust fluid rate as needed * CT imaging (06/01/16): 9.5 X7.1X5.9 cm heterogenous solid lesion noted on US and CT scan in the left kidney. Possible solid renal cell carcinoma with internal necrotic and/or hemorrhagic components. interval enlargement of the lesion with prominent peripheric fat stranding and fluid surroudnging left kidney. Possible cute hemorrhage * Pelvic US (06/02/16): 8.5 cm left upper pole renal mass, demonstrated on CT examination, No significant post void residual within urinary bladder * Bladder PRN Status: Acute Hematuria Assessment and Plan: * Patient not currently having hematuria * One episode 4 days prior to admission which appears to have resolved. * UA on admission positive for blood * Urine culture shows no growth * CT imaging (06/01/16): 9.5 X7.1X5.9 cm heterogenous solid lesion noted on US and CT scan in the left kidney. Possible solid renal cell carcinoma with internal necrotic and/or hemorrhagic components. interval enlargement of the lesion with prominent peripheric fat stranding and fluid surrounding left kidney. Possible cute hemorrhage * Pelvic US (06/02/16): 8.5 cm left upper pole renal mass, demonstrated on CT examination, No significant post void residual within urinary bladder * F/U Urology recommendations * Hold NSAIDs at this time due to risk of further bleed * Hgb stable Status: Acute Diabetes mellitus Assessment and Plan: * NISS, Metformin held * Accuchecks QAC and HS * HgbA1c: 6.5 controlled Status: Chronic Leukocytosis Assessment and Plan: * Urine culture (06/01/16): No growth * Blood culture (06/02/16): No growth X 5 days * Chest xray (06/01/16): mild venous congestion * IV abx: Rocephin 1 gram IV Q 12hours Status: Acute Constipation Assessment and Plan: * Watery BM earlier x1 * Abdomen flat plate x-ray- dilated loops of bowel with air-fluid levels noted involving both small and large bowel. Appearance suspicious for ileus however obstruction cannot be excluded. F/U * Milk of Mag 60 ml PO once * Encourage fluid intake * Monitor for BMs Status: Acute Prophylactic measure Assessment and Plan: * SCDs * VTE contraindicated due to genitourinary bleed * Protonix 40mg IV q daily Status: Acute <Simpson,Peter H - Last Filed: 06/10/16 17:09> Objective - Vital Signs/Intake and Output Vital Signs (last 24 hours): Temp Pulse Resp BP Pulse Ox 98.7 F 79 20 159/96 H 93 L 05/06/17 07:23 06/10/16 07:23 06/10/16 07:23 06/10/16 07:23 06/10/16 07:23 Intake and Output: 06/10/16 06/10/16 06:59 18:59 Intake Total 750 340 Output Total 1500 Balance -750 340 - Medications Medications: Current Medications Amlodipine Besylate (Norvasc) 10 mg PO DAILY [facility] Last Admin: 06/10/16 10:16 Dose: 10 mg Docusate Sodium (Colace) 100 mg PO TID [facility] Last Admin: 06/10/16 14:00 Dose: 100 mg Hydralazine HCl (Apresoline) 50 mg PO Q8 [facility] Last Admin: 06/10/16 14:00 Dose: 50 mg Ceftriaxone Sodium (Rocephin Iv 1 Gm Duplex) 50 mls @ 100 mls/hr IVPB Q12 [facility] Last Admin: 06/10/16 10:00 Dose: 100 mls/hr Potassium Chloride/Dextrose/Sod Cl (Potassium Chl 20 Meq In D5-1/2ns) 1,000 mls @ 50 mls/hr IV .Q20H [facility] Last Admin: 06/09/16 21:09 Dose: 50 mls/hr Insulin Aspart (Novolog) 0 unit SC ACHS [facility] PRN Reason: Protocol Last Admin: 06/10/16 11:30 Dose: Not Given Metoprolol Tartrate (Lopressor) 12.5 mg PO BID [facility] Last Admin: 06/10/16 10:16 Dose: 12.5 mg Oxycodone/Acetaminophen (Percocet 5/325 Mg Tab) 1 tab PO Q4H PRN PRN Reason: Pain, moderate (4-7) Stop: 06/11/16 13:01 Last Admin: 06/10/16 03:28 Dose: 1 tab Pantoprazole Sodium (Protonix Inj) 40 mg IVP DAILY [facility] Last Admin: 06/10/16 10:15 Dose: 40 mg Saccharomyces Boulardii (Florastor) 250 mg PO BID [facility] Last Admin: 06/10/16 10:16 Dose: 250 mg - Labs Labs: 06/10/16 07:18 06/10/16 07:18 PT 14.9 SECONDS (9.7-12.2) H 06/02/16 07:20 INR 1.3 06/02/16 07:20 APTT 32 SECONDS (21-34) 06/02/16 07:20 Attending/Attestation - Attestation I have personally seen and examined this patient.: Yes I have fully participated in the care of the patient.: Yes I have reviewed all pertinent clinical information, including history, physical exam and plan: Yes Notes (Text): 06/10/16 17:06 Medial Attending: Patient was seen and examined by me later in the day. Agree with the above note by the resident. Patient's brother was at bedside. Currently he had a very small watery BM last night. Has not had any other this morning. Hgb is stable at this time. Creatine is 1.5, patient reports urinating ok. Yesterday added additional medications for BP control and his BP is in the 140s systolic now. This is less than before. Pain is also less today thank you Eugene Simpson
[2016-06-10] MEDS: Oxycodone/Acetaminophen 5/325 mg Tab PO PRN (03:28)
[2016-06-10] MEDS: (Novolog) Insulin Aspart, Recombinant 100 u/ml 10 ml vial SC SCH ×4 (07:30→21:43)
[2016-06-10 07:37] LABS: POTASSIUM 3.7 mmol/L (3.6-5.2)
[2016-06-10 07:39] LABS: ALB/GLOB RATIO 1.1 (1.0-2.1); BILIRUBIN,TOTAL 1.3 mg/dL (0.2-1.3); PHOSPHOROUS 2.9 mg/dL (2.5-4.5)
[2016-06-10 07:40] LABS: CALCIUM 8.3 mg/dl (8.6-10.4); MAGNESIUM 2.2 mg/dL (1.6-2.3)
[2016-06-10 07:43] LABS: BASO # 0.1 K/uL (0.0-0.2); BASO % 0.5 % (0.0-2.0); EOS # 0.5 K/uL (0.0-0.7); EOS % 4.2 % (0.0-4.0); HEMATOCRIT 38.2 % (35.0-51.0); LYMPH # 1.4 K/uL (1.0-4.3); LYMPH % 11.7 % (20.0-40.0); MEAN CELL VOLUME 82.6 fL (80.0-94.0); MEAN CORPUSCULAR HGB CONC 32.6 g/dL (33.0-37.0); MEAN PLATELET VOLUME 9.3 fL (7.2-11.7); MONO # 0.7 K/uL (0.0-0.8); MONO % 5.7 % (0.0-10.0); NRBC % 0.1 % (0.0-2.0); RED CELL DISTRIBUTION WIDTH 14.7 % (11.5-14.5)
[2016-06-10] MEDS: cefTRIAXone IV 1 gm in Dextros 50 ML IVPB SCH ×2 (10:00→21:42)
[2016-06-10] MEDS: Saccharomyces Boulardi 250 mg Cap PO SCH ×2 (10:16→18:07)
--- NOTE | 2016-06-10 15:09 | CP.PCM.PN ---
Subjective - Date & Time of Evaluation Date of Evaluation: 06/10/16 Time of Evaluation: 15:09 - Subjective Subjective: pt seen and examined, follow up consult is dictated #[id number] Objective - Vital Signs/Intake and Output Vital Signs (last 24 hours): Temp Pulse Resp BP Pulse Ox 98.7 F 79 20 159/96 H 93 L 06/10/16 07:23 06/10/16 07:23 06/10/16 07:23 06/10/16 07:23 06/10/16 07:23 Intake and Output: 06/10/16 06/10/16 06:59 18:59 Intake Total 750 Output Total 1500 Balance -750 - Medications Medications: Current Medications Amlodipine Besylate (Norvasc) 10 mg PO DAILY [facility] Last Admin: 06/10/16 10:16 Dose: 10 mg Docusate Sodium (Colace) 100 mg PO TID [facility] Last Admin: 06/10/16 14:00 Dose: 100 mg Hydralazine HCl (Apresoline) 50 mg PO Q8 [facility] Last Admin: 06/10/16 14:00 Dose: 50 mg Ceftriaxone Sodium (Rocephin Iv 1 Gm Duplex) 50 mls @ 100 mls/hr IVPB Q12 [facility] Last Admin: 06/10/16 10:00 Dose: 100 mls/hr Potassium Chloride/Dextrose/Sod Cl (Potassium Chl 20 Meq In D5-1/2ns) 1,000 mls @ 50 mls/hr IV .Q20H [facility] Last Admin: 06/09/16 21:09 Dose: 50 mls/hr Insulin Aspart (Novolog) 0 unit SC ACHS [facility] PRN Reason: Protocol Last Admin: 06/10/16 11:30 Dose: Not Given Metoprolol Tartrate (Lopressor) 12.5 mg PO BID [facility] Last Admin: 06/10/16 10:16 Dose: 12.5 mg Oxycodone/Acetaminophen (Percocet 5/325 Mg Tab) 1 tab PO Q4H PRN PRN Reason: Pain, moderate (4-7) Stop: 06/11/16 13:01 Last Admin: 06/10/16 03:28 Dose: 1 tab Pantoprazole Sodium (Protonix Inj) 40 mg IVP DAILY [facility] Last Admin: 06/10/16 10:15 Dose: 40 mg Saccharomyces Boulardii (Florastor) 250 mg PO BID [facility] Last Admin: 06/10/16 10:16 Dose: 250 mg - Labs Labs: 06/10/16 07:18 06/10/16 07:18 PT 14.9 SECONDS (9.7-12.2) H 06/02/16 07:20 INR 1.3 06/02/16 07:20 APTT 32 SECONDS (21-34) 06/02/16 07:20
--- NOTE | 2016-06-10 18:33 | PN ---
DATE: 06/10/2016 The patient is located in room 356, bed A. REQUESTED BY: Dr. Philomena Coleman. REASON FOR FOLLOWUP: Status post nephrectomy, hypertension, diabetes, and acute renal failure. HISTORY OF PRESENT ILLNESS: The patient is a 66-year-old elderly male with history of longs tanding hypertension, diabetes, also with large left renal mass. Subsequently, underwent robotic lef t radical nephrectomy for hematuria. The patient is complaining of abdominal distention and slight a bdominal pain also. The patient claims he moved his bowels yesterday, the first time, mostly watery. The patient is not in acute distress. PHYSICAL EXAMINATION: VITAL SIGNS: As follows: Blood pressure 159/96, pulse 79, respiration 20, temperature 98.7, saturat ion 93%. Height 5 feet 7 inches and weight is 210 pounds. GENERAL: The patient is a 66-year-old elderly male, moderately built, moderately nourished, not in a cute distress. HEENT: Pupils normal, reactive to light and accommodation. Conjunctivae pink. Sclerae anicteric. Tongue is moist. NECK: Trachea is midline. LUNGS: Symmetric on both sides. Bilateral breath sounds present. Clear on auscultation. CARDIOVASCULAR: [place] at the fifth intercostal space half inch middle to midclavicular line. S1 and S2 audible. No murmur or gallop. ABDOMEN: Normal in appearance, slightly distended, soft. Bowel sounds present. No guarding, no rig idity. The patient has a dressing from recent surgery. CENTRAL NERVOUS SYSTEM: The patient is alert, awake, oriented x 3, nonfocal on examination. Cranial nerves II-XII grossly intact. Sensory and motor system is within normal limits. EXTREMITIES: No cyanosis, no clubbing, no edema. LABORATORY DATA: Include as follows as of 06/10/2016: WBC 12, hemoglobin 12.4, hematocrit is 38.2, pl atelets 325. Sodium 135, potassium 3.7, chloride 96, CO2 26, BUN 14, creatinine 1.5, glucose 136, ca lcium 8.3, phosphorus 2.9, magnesium 2.2, total bilirubin 1.3, AST 30, ALT 30, alk phos is 80, total protein 7, albumin is 3.6. SUMMARY: The patient is a 66-year-old elderly male with hypertension, diabetes, left renal mass, hem aturia, underwent robotic radical nephrectomy for left kidney mass and increased abdominal distention and slight colicky pain. 1. Hypertension. Blood pressure is stable. Continue his current medication. 2. Status post radical nephrectomy on the left side. 3. Abdominal distention, most likely secondary to ileus. Try to avoid unnecessary pain medication. Lactulose p.r.n. Continue to monitor and we will follow with you. Thank you for allowing me to participate in your patient's care. Maryam Clinton MD cc: [id number] TT: 06/10/2016 18:32:52 Confirmation # [id number] Dictation # [id number]
--- NOTE | 2016-06-10 21:02 | CP.PCM.PN ---
Subjective - Date & Time of Evaluation Date of Evaluation: 06/10/16 Time of Evaluation: 16:30 - Subjective Subjective: Has some gas Objective - Vital Signs/Intake and Output Vital Signs (last 24 hours): Temp Pulse Resp BP Pulse Ox 99.2 F 90 20 170/94 H 95 06/10/16 15:00 06/10/16 15:00 06/10/16 15:00 06/10/16 15:00 06/10/16 15:00 Intake and Output: 06/10/16 06/11/16 18:59 06:59 Intake Total 340 Balance 340 - Medications Medications: Current Medications Amlodipine Besylate (Norvasc) 10 mg PO DAILY [facility] Last Admin: 06/10/16 10:16 Dose: 10 mg Docusate Sodium (Colace) 100 mg PO TID [facility] Last Admin: 06/10/16 18:07 Dose: 100 mg Hydralazine HCl (Apresoline) 50 mg PO Q8 [facility] Last Admin: 06/10/16 14:00 Dose: 50 mg Ceftriaxone Sodium (Rocephin Iv 1 Gm Duplex) 50 mls @ 100 mls/hr IVPB Q12 [facility] Last Admin: 06/10/16 10:00 Dose: 100 mls/hr Potassium Chloride/Dextrose/Sod Cl (Potassium Chl 20 Meq In D5-1/2ns) 1,000 mls @ 50 mls/hr IV .Q20H [facility] Last Admin: 06/09/16 21:09 Dose: 50 mls/hr Insulin Aspart (Novolog) 0 unit SC ACHS [facility] PRN Reason: Protocol Last Admin: 06/10/16 11:30 Dose: Not Given Metoprolol Tartrate (Lopressor) 12.5 mg PO BID [facility] Last Admin: 06/10/16 18:07 Dose: 12.5 mg Oxycodone/Acetaminophen (Percocet 5/325 Mg Tab) 1 tab PO Q4H PRN PRN Reason: Pain, moderate (4-7) Stop: 06/11/16 13:01 Last Admin: 06/10/16 03:28 Dose: 1 tab Pantoprazole Sodium (Protonix Inj) 40 mg IVP DAILY [facility] Last Admin: 06/10/16 10:15 Dose: 40 mg Saccharomyces Boulardii (Florastor) 250 mg PO BID [facility] Last Admin: 06/10/16 18:07 Dose: 250 mg - Labs Labs: 06/10/16 07:18 06/10/16 07:18 PT 14.9 SECONDS (9.7-12.2) H 06/02/16 07:20 INR 1.3 06/02/16 07:20 APTT 32 SECONDS (21-34) 06/02/16 07:20 - Head Exam Head Exam: ATRAUMATIC - Eye Exam Eye Exam: Normal appearance - ENT Exam ENT Exam: Mucous Membranes Dry - Respiratory Exam Respiratory Exam: NORMAL BREATHING PATTERN - Cardiovascular Exam Cardiovascular Exam: +S1, +S2 - GI/Abdominal Exam GI & Abdominal Exam: Normal Bowel Sounds - Extremities Exam Extremities Exam: Normal Inspection Assessment and Plan (1) Renal mass Assessment & Plan: s/p nephrectomy; path consistent with renal cell carcinoma CT chest shows subcentimeter nodule but no definite evidence of mets Status: Acute (2) Anemia Status: Acute
[2016-06-10] MEDS: Potassium Ch 20mEq in D5-1/2NS 1,000 ML IV SCH (21:44)
--- NOTE | 2016-06-11 00:23 | CP.PCM.PN ---
<Anni Martezuhair - Last Filed: 06/11/16 00:25> Subjective - Date & Time of Evaluation Date of Evaluation: 06/11/16 Time of Evaluation: 00:23 - Subjective Subjective: PGY 1 Medicine Note- Dr. Simpson's service Pt seen and examined in no acute distress. Patient is sp robotic left radical nephrectomy, POD#5. Patient is tolerating a diet. Patient states that he had one watery bowel movement today. His pain is controlled. He states that he is ambulating around the hallway and using incentive spirometry. He is urinating without difficulty. He denies subjective fevers, chills, chest pain, shortness of breath, palpitations, paresthesias, headaches, dysuria, urinary frequency or hematuria at this time. Objective - Vital Signs/Intake and Output Vital Signs (last 24 hours): Temp Pulse Resp BP Pulse Ox 98.9 F 82 20 157/84 H 95 06/11/16 00:05 06/11/16 00:05 06/11/16 00:05 06/11/16 00:05 06/11/16 00:05 Intake and Output: 06/10/16 06/11/16 18:59 06:59 Intake Total 340 Balance 340 - Medications Medications: Current Medications Amlodipine Besylate (Norvasc) 10 mg PO DAILY [facility] Last Admin: 06/10/16 10:16 Dose: 10 mg Docusate Sodium (Colace) 100 mg PO TID [facility] Last Admin: 06/10/16 18:07 Dose: 100 mg Hydralazine HCl (Apresoline) 50 mg PO Q8 [facility] Last Admin: 06/10/16 21:41 Dose: 50 mg Ceftriaxone Sodium (Rocephin Iv 1 Gm Duplex) 50 mls @ 100 mls/hr IVPB Q12 [facility] Last Admin: 06/10/16 21:42 Dose: 100 mls/hr Potassium Chloride/Dextrose/Sod Cl (Potassium Chl 20 Meq In D5-1/2ns) 1,000 mls @ 50 mls/hr IV .Q20H [facility] Last Admin: 06/10/16 21:44 Dose: 50 mls/hr Insulin Aspart (Novolog) 0 unit SC ACHS [facility] PRN Reason: Protocol Last Admin: 06/10/16 21:43 Dose: Not Given Metoprolol Tartrate (Lopressor) 12.5 mg PO BID [facility] Last Admin: 06/10/16 18:07 Dose: 12.5 mg Oxycodone/Acetaminophen (Percocet 5/325 Mg Tab) 1 tab PO Q4H PRN PRN Reason: Pain, moderate (4-7) Stop: 06/11/16 13:01 Last Admin: 06/10/16 03:28 Dose: 1 tab Pantoprazole Sodium (Protonix Inj) 40 mg IVP DAILY [facility] Last Admin: 06/10/16 10:15 Dose: 40 mg Saccharomyces Boulardii (Florastor) 250 mg PO BID [facility] Last Admin: 06/10/16 18:07 Dose: 250 mg - Labs Labs: 06/10/16 07:18 06/10/16 07:18 PT 14.9 SECONDS (9.7-12.2) H 06/02/16 07:20 INR 1.3 06/02/16 07:20 APTT 32 SECONDS (21-34) 06/02/16 07:20 - Constitutional Appears: Non-toxic, No Acute Distress - Head Exam Head Exam: ATRAUMATIC, NORMAL INSPECTION, NORMOCEPHALIC - Eye Exam Eye Exam: EOMI, Normal appearance, PERRL Pupil Exam: NORMAL ACCOMODATION - ENT Exam ENT Exam: Mucous Membranes Moist - Neck Exam Neck Exam: Full ROM - Respiratory Exam Respiratory Exam: NORMAL BREATHING PATTERN. absent: Wheezes - Cardiovascular Exam Cardiovascular Exam: +S1, +S2 - GI/Abdominal Exam GI & Abdominal Exam: Soft, Normal Bowel Sounds Additional comments: incision sites c/d/i, minimal abdominal tenderness - Extremities Exam Extremities Exam: Full ROM, Normal Capillary Refill - Back Exam Back Exam: Full ROM - Neurological Exam Neurological Exam: Alert, Awake, Oriented x3 - Psychiatric Exam Psychiatric exam: Normal Affect, Normal Mood - Skin Skin Exam: Dry, Intact, Normal Color, Warm Assessment and Plan (1) Abdominal pain Status: Acute (2) Renal mass Status: Acute (3) Hypertension Status: Chronic (4) [place] (acute kidney injury) Status: Acute (5) Hematuria Assessment & Plan: S/P Left radical Nephrectomy Assessment and Plan: * CT imaging (06/01/16): 9.5 x 7.1 x 5.9 cm heterogenous solid lesion noted on US and CT scan in the left kidney. Possible solid renal cell carcinoma with internal necrotic and/or hemorrhagic components. Interval enlargement of the lesion with prominent peripheric fat stranding and fluid surrounding left kidney. Possible acute hemorrhage. * Bladder US- 8.5 cm left upper pole renal mass demonstrated on CT. No significant postvoid residual in bladder . F/U full report * Consult to Urology Dr. Leta Garcia- F/U reccs * Dr. Clinton referral per Dr. Misael Fatima to keep SBP btwn 120 and 130. Started on Lopressor 12.5 mg po BID for better blood pressure control * Hold NSAIDs. Try not to administer too many unnecessary pain meds * Urine culture (06/01/16): No growth * Blood culture (06/02/16): No growth X48 hours * Pathology - clear cell renal cell carcinoma * F/U recommendations Dr. Morris ( [facility]). * Pain control Percocet Q 4 PRN, Status: Acute Dysuria Assessment and Plan: * Improved. Per nurse, patient voiding * Rocephin 1 gram IV q 12 hours (active since 06/02/16) * Urine culture (06/01/16): no growth * CT imaging (06/01/16): 9.5 X7.1X5.9 cm heterogenous solid lesion noted on US and CT scan in the left kidney. Possible solid renal cell carcinoma with internal necrotic and/or hemorrhagic components. interval enlargement of the lesion with prominent peripheric fat stranding and fluid surrounding left kidney. Possible cute hemorrhage * Follow-up with urology Hypertension Assessment and Plan: * Improved * Continue Norvasc 10 mg po daily and Hydralazine 50 mg po q8h * Start Lopressor 12.5 mg po BID * Monitor blood pressure and adjust bp meds * Echo LVEF ~55%. Refer to final read * F/U Nephro recommendations as noted above Status: Chronic [place] (acute kidney injury) Assessment and Plan: * D 5 1/2 ns with Potassium @ 50 mls. Monitor BP. Adjust fluid rate as needed * CT imaging (06/01/16): 9.5 X7.1X5.9 cm heterogenous solid lesion noted on US and CT scan in the left kidney. Possible solid renal cell carcinoma with internal necrotic and/or hemorrhagic components. interval enlargement of the lesion with prominent peripheric fat stranding and fluid surroudnging left kidney. Possible cute hemorrhage * Pelvic US (06/02/16): 8.5 cm left upper pole renal mass, demonstrated on CT examination, No significant post void residual within urinary bladder * Bladder PRN Status: Acute Hematuria Assessment and Plan: * Patient not currently having hematuria * One episode 4 days prior to admission which appears to have resolved. * UA on admission positive for blood * Urine culture shows no growth * CT imaging (06/01/16): 9.5 X7.1X5.9 cm heterogenous solid lesion noted on US and CT scan in the left kidney. Possible solid renal cell carcinoma with internal necrotic and/or hemorrhagic components. interval enlargement of the lesion with prominent peripheric fat stranding and fluid surrounding left kidney. Possible cute hemorrhage * Pelvic US (06/02/16): 8.5 cm left upper pole renal mass, demonstrated on CT examination, No significant post void residual within urinary bladder * F/U Urology recommendations * Hold NSAIDs at this time due to risk of further bleed * Hgb stable Status: Acute Diabetes mellitus Assessment and Plan: * NISS, Metformin held * Accuchecks QAC and HS * HgbA1c: 6.5 controlled Status: Chronic Leukocytosis Assessment and Plan: * Urine culture (06/01/16): No growth * Blood culture (06/02/16): No growth X 5 days * Chest xray (06/01/16): mild venous congestion * IV abx: Rocephin 1 gram IV Q 12hours Status: Acute Constipation Assessment and Plan: * Watery BM yesterday and today * Abdomen flat plate x-ray- dilated loops of bowel with air-fluid levels noted involving both small and large bowel. Appearance suspicious for ileus however obstruction cannot be excluded. F/U * Encourage fluid intake * Monitor for BMs * Lactulose as needed Status: Acute Prophylactic measure Assessment and Plan: * SCDs * VTE contraindicated due to genitourinary bleed * Protonix 40mg IV q daily Status: Acute Status: Acute (6) Diabetes mellitus Status: Chronic (7) Prophylactic measure Status: Acute <Eugene Simpson H - Last Filed: 06/11/16 11:57> Objective - Vital Signs/Intake and Output Vital Signs (last 24 hours): Temp Pulse Resp BP Pulse Ox 99.2 F 89 20 149/95 H 96 06/11/16 08:00 05/07/17 08:00 06/11/16 08:00 06/11/16 08:00 06/11/16 08:00 Intake and Output: 06/11/16 06/11/16 06:59 18:59 Intake Total 1000 Balance 1000 - Medications Medications: Current Medications Amlodipine Besylate (Norvasc) 10 mg PO DAILY [facility] Last Admin: 06/11/16 09:20 Dose: 10 mg Docusate Sodium (Colace) 100 mg PO TID [facility] Last Admin: 06/11/16 09:21 Dose: 100 mg Hydralazine HCl (Apresoline) 50 mg PO Q8 [facility] Last Admin: 06/11/16 05:47 Dose: 50 mg Ceftriaxone Sodium (Rocephin Iv 1 Gm Duplex) 50 mls @ 100 mls/hr IVPB Q12 [facility] Last Admin: 06/11/16 09:25 Dose: 100 mls/hr Insulin Aspart (Novolog) 0 unit SC ACHS [facility] PRN Reason: Protocol Last Admin: 06/11/16 09:20 Dose: Not Given Metoprolol Tartrate (Lopressor) 12.5 mg PO BID [facility] Last Admin: 06/11/16 09:20 Dose: 12.5 mg Oxycodone/Acetaminophen (Percocet 5/325 Mg Tab) 1 tab PO Q4H PRN PRN Reason: Pain, moderate (4-7) Stop: 06/11/16 13:01 Last Admin: 06/10/16 03:28 Dose: 1 tab Pantoprazole Sodium (Protonix Inj) 40 mg IVP DAILY [facility] Last Admin: 06/11/16 09:21 Dose: 40 mg Saccharomyces Boulardii (Florastor) 250 mg PO BID [facility] Last Admin: 06/11/16 09:21 Dose: 250 mg - Labs Labs: 06/11/16 06:50 06/11/16 06:50 PT 14.9 SECONDS (9.7-12.2) H 06/02/16 07:20 INR 1.3 06/02/16 07:20 APTT 32 SECONDS (21-34) 06/02/16 07:20 Attending/Attestation - Attestation I have personally seen and examined this patient.: Yes I have fully participated in the care of the patient.: Yes I have reviewed all pertinent clinical information, including history, physical exam and plan: Yes Notes (Text): 06/11/16 11:55 Medical Attending: Patient was seen and examined by me. Agree with the above note by the resident Patient reported much less pain today over the abdomen. He is tolerating diet. He states had two small BM yesterday. He denied fever, denied chills, denied chest pain, denied shortness of breath Pathology came back showing renal cell CA. Pain is currently controlled at this time Eugene Simpson
[2016-06-11 07:03] LABS: BASO # 0.1 K/uL (0.0-0.2); BASO % 0.8 % (0.0-2.0); EOS # 0.6 K/uL (0.0-0.7); EOS % 5.1 % (0.0-4.0); LYMPH % 17.9 % (20.0-40.0); MEAN CELL VOLUME 82.6 fL (80.0-94.0); MEAN CORPUSCULAR HEMOGLOBIN 26.8 pg (27.0-31.0); MEAN CORPUSCULAR HGB CONC 32.5 g/dL (33.0-37.0); MEAN PLATELET VOLUME 8.8 fL (7.2-11.7); MONO # 0.7 K/uL (0.0-0.8); MONO % 6.2 % (0.0-10.0); RED CELL DISTRIBUTION WIDTH 14.8 % (11.5-14.5); WHITE BLOOD COUNT 11.4 K/uL (4.8-10.8)
[2016-06-11 07:05] LABS: POTASSIUM 3.6 mmol/L (3.6-5.2)
[2016-06-11 07:07] LABS: ALB/GLOB RATIO 1.1 (1.0-2.1); BILIRUBIN,TOTAL 1.2 mg/dL (0.2-1.3); TOTAL PROTEIN 7.3 g/dL (6.3-8.3)
[2016-06-11 07:08] LABS: CALCIUM 8.7 mg/dl (8.6-10.4); MAGNESIUM 2.2 mg/dL (1.6-2.3); PHOSPHOROUS 3.1 mg/dL (2.5-4.5)
[2016-06-11] MEDS: (Novolog) Insulin Aspart, Recombinant 100 u/ml 10 ml vial SC SCH ×4 (09:20→22:33)
[2016-06-11] MEDS: Saccharomyces Boulardi 250 mg Cap PO SCH ×2 (09:21→17:52)
[2016-06-11] MEDS: cefTRIAXone IV 1 gm in Dextros 50 ML IVPB SCH (09:25)
[2016-06-11] MEDS: POLYETHYLENE GLYCOL 3350 17 GM/Dose PACKET PO SCH (16:01)
--- NOTE | 2016-06-11 18:40 | CP.PCM.PN ---
Subjective - Date & Time of Evaluation Date of Evaluation: 06/11/16 Time of Evaluation: 17:10 - Subjective Subjective: No complaints Objective - Vital Signs/Intake and Output Vital Signs (last 24 hours): Temp Pulse Resp BP Pulse Ox 99.0 F 86 20 158/87 H 94 L 06/11/16 18:14 06/11/16 18:14 06/11/16 18:14 06/11/16 18:14 06/11/16 18:14 Intake and Output: 06/11/16 06/11/16 06:59 18:59 Intake Total 1000 Balance 1000 - Medications Medications: Current Medications Amlodipine Besylate (Norvasc) 10 mg PO DAILY [facility] Last Admin: 06/11/16 09:20 Dose: 10 mg Docusate Sodium (Colace) 100 mg PO TID [facility] Last Admin: 06/11/16 17:51 Dose: 100 mg Hydralazine HCl (Apresoline) 50 mg PO Q8 [facility] Last Admin: 06/11/16 13:18 Dose: 50 mg Insulin Aspart (Novolog) 0 unit SC ACHS [facility] PRN Reason: Protocol Last Admin: 06/11/16 17:30 Dose: 2 unit Metoprolol Tartrate (Lopressor) 12.5 mg PO BID [facility] Last Admin: 06/11/16 17:51 Dose: 12.5 mg Pantoprazole Sodium (Protonix Ec Tab) 40 mg PO DAILY [facility] Polyethylene Glycol (Miralax) 17 gm PO DAILY [facility] Last Admin: 06/11/16 16:01 Dose: 17 gm Saccharomyces Boulardii (Florastor) 250 mg PO BID [facility] Last Admin: 06/11/16 17:52 Dose: 250 mg - Labs Labs: 06/11/16 06:50 06/11/16 06:50 PT 14.9 SECONDS (9.7-12.2) H 06/02/16 07:20 INR 1.3 06/02/16 07:20 APTT 32 SECONDS (21-34) 06/02/16 07:20 - Head Exam Head Exam: ATRAUMATIC - Eye Exam Eye Exam: Normal appearance - ENT Exam ENT Exam: Mucous Membranes Dry - Respiratory Exam Respiratory Exam: NORMAL BREATHING PATTERN - Cardiovascular Exam Cardiovascular Exam: +S1, +S2 - GI/Abdominal Exam GI & Abdominal Exam: Normal Bowel Sounds - Extremities Exam Extremities Exam: Normal Inspection Assessment and Plan (1) Renal mass Assessment & Plan: s/p nephrectomy renal cell carcinoma no overt evidence of metastatic disease outpatient surveillance Status: Acute (2) Anemia Status: Acute
[2016-06-12 06:18] LABS: POTASSIUM 3.6 mmol/L (3.6-5.2)
[2016-06-12 06:20] LABS: BILIRUBIN,TOTAL 0.8 mg/dL (0.2-1.3)
[2016-06-12 06:21] LABS: ALB/GLOB RATIO 0.9 (1.0-2.1); PHOSPHOROUS 3.3 mg/dL (2.5-4.5); TOTAL PROTEIN 7.1 g/dL (6.3-8.3)
[2016-06-12 06:22] LABS: CALCIUM 8.7 mg/dl (8.6-10.4)
[2016-06-12 06:30] LABS: BASO # 0.1 K/uL (0.0-0.2); BASO % 0.8 % (0.0-2.0); EOS # 0.5 K/uL (0.0-0.7); EOS % 4.2 % (0.0-4.0); HEMATOCRIT 38.5 % (35.0-51.0); LYMPH # 1.9 K/uL (1.0-4.3); LYMPH % 17.2 % (20.0-40.0); MEAN CELL VOLUME 82.3 fL (80.0-94.0); MEAN CORPUSCULAR HEMOGLOBIN 26.5 pg (27.0-31.0); MEAN CORPUSCULAR HGB CONC 32.2 g/dL (33.0-37.0); MEAN PLATELET VOLUME 8.8 fL (7.2-11.7); MONO # 0.7 K/uL (0.0-0.8); MONO % 6.7 % (0.0-10.0); RED CELL DISTRIBUTION WIDTH 14.3 % (11.5-14.5); WHITE BLOOD COUNT 11.1 K/uL (4.8-10.8)
[2016-06-12] MEDS: (Novolog) Insulin Aspart, Recombinant 100 u/ml 10 ml vial SC SCH ×2 (07:49→12:31)
[2016-06-12] MEDS: POLYETHYLENE GLYCOL 3350 17 GM/Dose PACKET PO SCH (09:11)
[2016-06-12] MEDS: Saccharomyces Boulardi 250 mg Cap PO SCH (09:15)
[2016-06-12] MEDS ORDERED: Pantoprazole 40 mg EC Tab PO SCH (10:00)
--- NOTE | 2016-06-12 10:57 | PCM.URO ---
Urology Progress Note - General General: No Complaints, Tolerating Diet - Subjective Abdominal Pain: No Voiding Well: Yes Hematuria: No [place]: Yes Dsypnea: No Chest Pain: No Fever & Chills: No - Objective Lab Studies: Reviewed Lab Results Last 24 Hours: Laboratory Results - last 24 hr 06/11/16 06/11/16 06/11/16 11:15 16:15 21:12 WBC RBC Hgb Hct MCV MCH MCHC RDW Plt Count MPV Neut % (Auto) Lymph % (Auto) Knott % (Auto) Eos % (Auto) Baso % (Auto) Neut # Lymph # Knott # Eos # Baso # Sodium Potassium Chloride Carbon Dioxide Anion Gap BUN Creatinine Est GFR ( Amer) Est GFR (Non-Af Amer) POC Glucose (mg/dL) 123 H 186 H 112 H Random Glucose Calcium Phosphorus Magnesium Total Bilirubin AST ALT Alkaline Phosphatase Total Protein Albumin Globulin Albumin/Globulin Ratio 06/12/16 06/12/16 06/12/16 06:02 06:02 07:47 WBC 11.1 H RBC 4.68 Hgb 12.4 Hct 38.5 MCV 82.3 MCH 26.5 L MCHC 32.2 L RDW 14.3 Plt Count 373 MPV 8.8 Neut % (Auto) 71.1 Lymph % (Auto) 17.2 L Knott % (Auto) 6.7 Eos % (Auto) 4.2 H Baso % (Auto) 0.8 Neut # 7.9 H Lymph # 1.9 Knott # 0.7 Eos # 0.5 Baso # 0.1 Sodium 133 Potassium 3.6 Chloride 96 L Carbon Dioxide 27 Anion Gap 14 BUN 15 Creatinine 1.6 H Est GFR ( Amer) 52 Est GFR (Non-Af Amer) 43 POC Glucose (mg/dL) 122 H Random Glucose 128 H Calcium 8.7 Phosphorus 3.3 Magnesium 2.0 Total Bilirubin 0.8 AST 27 ALT 46 Alkaline Phosphatase 81 Total Protein 7.1 Albumin 3.4 L Globulin 3.7 Albumin/Globulin Ratio 0.9 L Intake & Output: Intake & Output 06/11/16 06/12/16 06/12/16 18:59 06:59 18:59 Intake Total 1000 700 270 Balance 1000 700 270 Intake: Intake, IV Amount 800 400 150 Right Hand 800 400 150 Oral 200 300 120 Other: # Voids Urine, Voided 1 3 2 # Bowel Movements 1 2 0 Vital Signs: Vital Signs - 24 hr 06/11/16 06/12/16 06/12/16 18:14 00:00 06:50 Temperature 99.0 F 98 F 98.3 F Pulse Rate 86 85 Respiratory 20 20 Rate Blood Pressure 158/87 H 117/68 O2 Sat by Pulse 94 L 95 Oximetry 06/12/16 06/12/16 07:02 08:00 Temperature 99.1 F Pulse Rate 74 95 H Respiratory 20 Rate Blood Pressure 154/87 H 147/89 O2 Sat by Pulse 95 Oximetry - Physical Exam Abdominal Exam: Soft, Non-Tender, Non-Distended Dressing: Dry, Intact Back: No CVA Tenderness - Plan Additional Information: IMP: DOING WELL. S/P L NEPHRECTOMY FOR RCC - Date & Time of Note Date: 06/12/16 Time: 10:57
--- NOTE | 2016-06-12 13:22 | CP.PCM.PN ---
Subjective - Date & Time of Evaluation Date of Evaluation: 06/12/16 Time of Evaluation: 13:22 - Subjective Subjective: pt seen and examined, follow up consult is dictated #[id number] Objective - Vital Signs/Intake and Output Vital Signs (last 24 hours): Temp Pulse Resp BP Pulse Ox 99.1 F 95 H 20 147/89 95 06/12/16 08:00 06/12/16 08:00 06/12/16 08:00 06/12/16 08:00 06/12/16 08:00 Intake and Output: 06/12/16 06/12/16 06:59 18:59 Intake Total 700 270 Balance 700 270 - Medications Medications: Current Medications Amlodipine Besylate (Norvasc) 10 mg PO DAILY [facility] Last Admin: 06/12/16 09:10 Dose: 10 mg Colchicine (Colocrys) 0.6 mg PO DAILY [facility] Last Admin: 06/12/16 09:10 Dose: 0.6 mg Docusate Sodium (Colace) 100 mg PO TID [facility] Last Admin: 06/12/16 09:10 Dose: Not Given Hydralazine HCl (Apresoline) 50 mg PO Q8 [facility] Last Admin: 06/12/16 07:00 Dose: 50 mg Insulin Aspart (Novolog) 0 unit SC ACHS [facility] PRN Reason: Protocol Last Admin: 06/12/16 12:31 Dose: Not Given Metoprolol Tartrate (Lopressor) 12.5 mg PO BID [facility] Last Admin: 06/12/16 09:10 Dose: 12.5 mg Pantoprazole Sodium (Protonix Ec Tab) 40 mg PO DAILY [facility] Last Admin: 06/12/16 09:10 Dose: 40 mg Polyethylene Glycol (Miralax) 17 gm PO DAILY [facility] Last Admin: 06/12/16 09:11 Dose: Not Given Saccharomyces Boulardii (Florastor) 250 mg PO BID [facility] Last Admin: 06/12/16 09:15 Dose: 250 mg - Labs Labs: 06/12/16 06:02 06/12/16 06:02 PT 14.9 SECONDS (9.7-12.2) H 06/02/16 07:20 INR 1.3 06/02/16 07:20 APTT 32 SECONDS (21-34) 06/02/16 07:20
--- NOTE | 2016-06-12 14:11 | CP.PCM.PN ---
Subjective - Date & Time of Evaluation Date of Evaluation: 06/12/16 Time of Evaluation: 10:45 - Subjective Subjective: Medical Attending Note: Follow-up: renal cell carcinoma, hematura, dysuria, uncontrolled hypertension Patient seen, examined and case discussed with day-time resident. Patient denies acute complaints. Patient urinating well. Patient reports spoke with urology earlier today. Discussed with urology, patient is stable for discharge from their standpoint. Recommend 1 week follow-up for stitch removal. outpatient surveillance for renal cell carcinoma. Discussed with nephrology, stable from their stand point may follow-up in one month. Objective - Vital Signs/Intake and Output Vital Signs (last 24 hours): Temp Pulse Resp BP Pulse Ox 99.1 F 95 H 20 147/89 95 06/12/16 08:00 06/12/16 08:00 06/12/16 08:00 06/12/16 08:00 06/12/16 08:00 Intake and Output: 06/12/16 06/12/16 06:59 18:59 Intake Total 700 770 Balance 700 770 - Medications Medications: Current Medications Amlodipine Besylate (Norvasc) 10 mg PO DAILY [facility] Last Admin: 06/12/16 09:10 Dose: 10 mg Colchicine (Colocrys) 0.6 mg PO DAILY [facility] Last Admin: 06/12/16 09:10 Dose: 0.6 mg Docusate Sodium (Colace) 100 mg PO TID [facility] Last Admin: 06/12/16 13:27 Dose: Not Given Hydralazine HCl (Apresoline) 50 mg PO Q8 [facility] Last Admin: 06/12/16 13:27 Dose: 50 mg Insulin Aspart (Novolog) 0 unit SC [facility] PRN Reason: Protocol Last Admin: 06/12/16 12:31 Dose: Not Given Metoprolol Tartrate (Lopressor) 12.5 mg PO BID [facility] Last Admin: 06/12/16 09:10 Dose: 12.5 mg Pantoprazole Sodium (Protonix Ec Tab) 40 mg PO DAILY [facility] Last Admin: 06/12/16 09:10 Dose: 40 mg Polyethylene Glycol (Miralax) 17 gm PO DAILY [facility] Last Admin: 06/12/16 09:11 Dose: Not Given Saccharomyces Boulardii (Florastor) 250 mg PO BID [facility] Last Admin: 06/12/16 09:15 Dose: 250 mg - Labs Labs: 06/12/16 06:02 06/12/16 06:02 PT 14.9 SECONDS (9.7-12.2) H 06/02/16 07:20 INR 1.3 06/02/16 07:20 APTT 32 SECONDS (21-34) 06/02/16 07:20 - Constitutional Appears: Non-toxic, No Acute Distress - Head Exam Head Exam: NORMAL INSPECTION - Eye Exam Eye Exam: EOMI - ENT Exam ENT Exam: Mucous Membranes Moist - Respiratory Exam Respiratory Exam: Clear to Ausculation Bilateral, NORMAL BREATHING PATTERN. absent: Rales, Rhonchi, Wheezes - Cardiovascular Exam Cardiovascular Exam: REGULAR RHYTHM, +S1, +S2 - GI/Abdominal Exam GI & Abdominal Exam: Soft, Normal Bowel Sounds. absent: Distended, Firm, Guarding, Rigid, Tenderness, Rebound Additional comments: dressing midline-clean/dry/intact - Extremities Exam Extremities Exam: absent: Pedal Edema, Tenderness - Neurological Exam Neurological Exam: Alert, Oriented x3 - Psychiatric Exam Psychiatric exam: Normal Affect, Normal Mood - Skin Skin Exam: Normal Color, Warm Assessment and Plan (1) Renal cell carcinoma Assessment & Plan: Follow-up with PMD and heme-onc outpatient surveillance Patient is POD 6 s/p nephrectomy Status: Acute (2) Hematuria Assessment & Plan: Patient is s/p nephrectomy POD 6 for renal mass found to be renal cell carcinoma , clear cell, grade 3, negative margins Patient to follow-up with urology for stitch removal within on week and follow- up with PMD and heme-onc for surveillance Status: Chronic (3) [place] (acute kidney injury) Assessment & Plan: Patient's metformin lowered to Metformin 500mg PO bid. Patient will need to follow-up outpatient with PMD and supervisor insulation to monitor kidney function Patient is status post nephrectomy POD 6 for renal cell carcinoma Patient is urinating. Status: Acute (4) Diabetes mellitus Status: Chronic (5) Constipation Status: Resolved (6) Hypertension Assessment & Plan: Monitor vital signs Upon discharge, patient discontinue Atenolol and to start new medications 1) Norvasc 10mg PO daily (30/0) 2) Hydralazine 50mg PO Q 8 hours (90/0) 3) Lopressor 12.5 mg PO bid (60/0) Patient's renal mass confirmed to renal cell carcinoma, negative margins, will need to follow-up with heme-onc/PMD for outpatient surveillance Status: Chronic (7) Prophylactic measure Assessment & Plan: Will be discharged today with follow-up with PMD, nephrology, heme-onc outpatient Status: Acute
[2016-06-12 16:52] VITALS: BP 155/70; PULSE 87; TEMP 98.8; O2SAT 98
--- NOTE | 2016-06-12 18:51 | CP.PCM.DIS ---
<Steven Talley - Last Filed: 06/12/16 19:01> Provider - Provider Date of Admission: 06/01/16 13:25 Attending physician: Philomena Coleman DO Consults: 1. Dr. Clinton- Nephrology 2. Dr. Louisa Garcia- urology 3. Dr. Narayan Morris- heme/onc Time Spent in preparation of Discharge (in minutes): 45 Hospital Course - Lab Results Lab Results: Micro Results 06/02/16 11:05 Blood Blood Culture - Final NO GROWTH AFTER 5 DAYS 06/02/16 11:05 Blood Gram Stain - Final TEST NOT PERFORMED 06/02/16 11:05 Blood Blood Culture - Final NO GROWTH AFTER 5 DAYS 06/02/16 11:05 Blood Gram Stain - Final TEST NOT PERFORMED Most Recent Lab Values WBC 11.1 K/uL (4.8-10.8) H 06/12/16 06:02 RBC 4.68 Mil/uL (4.40-5.90) 06/12/16 06:02 Hgb 12.4 g/dL (12.0-18.0) 06/12/16 06:02 Hct 38.5 % (35.0-51.0) 06/12/16 06:02 MCV 82.3 fL (80.0-94.0) 06/12/16 06:02 MCH 26.5 pg (27.0-31.0) L 06/12/16 06:02 MCHC 32.2 g/dL (33.0-37.0) L 06/12/16 06:02 RDW 14.3 % (11.5-14.5) 06/12/16 06:02 Plt Count 373 K/uL (130-400) 06/12/16 06:02 MPV 8.8 fL (7.2-11.7) 06/12/16 06:02 Neut % (Auto) 71.1 % (50.0-75.0) 06/12/16 06:02 Lymph % (Auto) 17.2 % (20.0-40.0) L 06/12/16 06:02 Camp % (Auto) 6.7 % (0.0-10.0) 06/12/16 06:02 Eos % (Auto) 4.2 % (0.0-4.0) H 06/12/16 06:02 Baso % (Auto) 0.8 % (0.0-2.0) 06/12/16 06:02 Neut # 7.9 K/uL (1.8-7.0) H 06/12/16 06:02 Lymph # 1.9 K/uL (1.0-4.3) 06/12/16 06:02 Camp # 0.7 K/uL (0.0-0.8) 06/12/16 06:02 Eos # 0.5 K/uL (0.0-0.7) 06/12/16 06:02 Baso # 0.1 K/uL (0.0-0.2) 06/12/16 06:02 Retic Count 1.0 % (0.5-1.5) 06/04/16 06:52 PT 14.9 SECONDS (9.7-12.2) H 06/02/16 07:20 INR 1.3 06/02/16 07:20 APTT 32 SECONDS (21-34) 06/02/16 07:20 Sodium 133 mmol/L (132-148) 06/12/16 06:02 Potassium 3.6 mmol/L (3.6-5.2) 06/12/16 06:02 Chloride 96 mmol/L (98-107) L 06/12/16 06:02 Carbon Dioxide 27 mmol/L (22-30) 06/12/16 06:02 Anion Gap 14 (10-20) 06/12/16 06:02 BUN 15 mg/dL (9-20) 06/12/16 06:02 Creatinine 1.6 MG/DL (0.8-1.5) H 06/12/16 06:02 Est GFR ( Amer) 52 06/12/16 06:02 Est GFR (Non-Af Amer) 43 06/12/16 06:02 POC Glucose (mg/dL) 112 mg/dL (65-110) H 06/12/16 16:09 Random Glucose 128 mg/dL (75-110) H 06/12/16 06:02 Hemoglobin A1c 6.5 % (4.2-6.5) 06/02/16 07:20 Uric Acid 8.0 mg/dL (3.5-8.5) 06/04/16 06:52 Calcium 8.7 mg/dl (8.6-10.4) 06/12/16 06:02 Phosphorus 3.3 mg/dL (2.5-4.5) 06/12/16 06:02 Magnesium 2.0 mg/dL (1.6-2.3) 06/12/16 06:02 Ferritin 33.2 ng/mL 06/04/16 06:52 Total Bilirubin 0.8 mg/dL (0.2-1.3) 06/12/16 06:02 AST 27 U/L (17-59) 06/12/16 06:02 ALT 46 U/L (21-72) 06/12/16 06:02 Alkaline Phosphatase 81 U/L (38-126) 06/12/16 06:02 Total Protein 7.1 g/dL (6.3-8.3) 06/12/16 06:02 Albumin 3.4 g/dL (3.5-5.0) L 06/12/16 06:02 Globulin 3.7 gm/dL (2.2-3.9) 06/12/16 06:02 Albumin/Globulin Ratio 0.9 (1.0-2.1) L 06/12/16 06:02 Triglycerides 195 mg/dL (0-149) H D 06/02/16 07:20 Cholesterol 194 mg/dL (0-199) 06/02/16 07:20 LDL Cholesterol Direct 107 mg/dL (0-129) 06/02/16 07:20 HDL Cholesterol 28 mg/dL (30-70) L 06/02/16 07:20 Vitamin B12 811 pg/mL (239-931) 06/04/16 06:52 Folate 10.8 ng/mL 06/04/16 06:52 Urine Color Yellow (YELLOW) 06/01/16 08:40 Urine Clarity Hazy (Clear) 06/01/16 08:40 Urine pH 5.0 (5.0-8.0) 06/01/16 08:40 Ur Specific Lavelle 1.012 (1.003-1.030) 06/01/16 08:40 Urine Protein 1+ mg/dL (NEGATIVE) H 06/01/16 08:40 Urine Glucose (UA) Normal mg/dL (Normal) 06/01/16 08:40 Urine Ketones Negative mg/dL (NEGATIVE) 06/01/16 08:40 Urine Blood 3+ (NEGATIVE) H 06/01/16 08:40 Urine Nitrate Negative (NEGATIVE) 06/01/16 08:40 Urine Bilirubin Negative (NEGATIVE) 06/01/16 08:40 Urine Urobilinogen Normal mg/dL (0.2-1.0) 06/01/16 08:40 Ur Leukocyte Esterase Neg Bibi/uL (Negative) 06/01/16 08:40 Urine WBC (Auto) 5 /hpf (0-5) 06/01/16 08:40 Urine RBC (Auto) 322 /hpf (0-3) H 06/01/16 08:40 Ur Squamous Epith Cells < 1 /hpf (0-5) 06/01/16 08:40 Blood Type B POSITIVE 06/06/16 07:49 Antibody Screen Negative 06/06/16 07:49 - Hospital Course Hospital Course: Admit date- 06-01 Attending: Dr. Coleman Discharge condition: stable Consults: 1. Nephrology- Mary Beth 2. Urology- Louisa Garcia 3. Heme/onc- Narayan Morris Discharge dx 1. Renal cell carcinoma 2. Hematuria 3. HTN 4. STANFORD 5. DM 6. Gout 7. Constipation HPI: see H/P Lab data: see lab section Procedure: s/p left radical nephrectomy Complications: none Hospital course: 66 year old male presented with chief complaint of one instance of hematuria. Patient also admitted to crampy abdominal pain which started day before arrival and continued today. Patient states that the hematuria quickly resolved however the abdominal pain remained. The pain was rated an 8/10 at it's worst yesterday with no alleviating factors noted. He states that he attempted to drink water with lemon which did not make a difference in pain quality. Pain is located below the umbilicus and not radiating. Patient states that he was last admitted in December 2015 for hematuria for which Urologist Dr. Garcia was consulted at the time. Upon that discharge, patient was asked to follow up with Dr. Garcia however patient states that he was provided with the wrong address. He was not able to actually see Dr. Garcia until May of this month. On that encounter, patient states that he was told he had a kidney mass which would need further follow up. Presently, patient states that he then had the symptoms of hematuria a few days ago. He spoke with his PMD after the fact who instructed him to come in. CT abdomen/pelvis showed 9.5 x 7.1 x 5.9 solid lesion in left kidney suspicious for renal cell carcinoma. Pt underwent a robotic left radical nephrectomy. He is now post op day number 6. There have been no complications. Nephrology, heme/onc, and urology cleared him for discharge and he will need to follow up outpatient for surveillance. During his hospital stay, we treated his htn with amlodipine, hydralazine, lopressor. His gout was tx with colchicine. He did have an STANFORD which improved. Pt was urinating well and had no complaints on day of discharge. Discharge meds: 1. atenolol 2. norvasc 3. hydralazine 4. lopressor Discharge instructions: please return if condition wosens. pt to follow up with Dr. Garcia and Dr. Morris. pt to take all discharge meds as prescribed - Date & Time of H&P Date of H&P: 06/01/16 Time of H&P: 14:04 Discharge Exam - Head Exam Head Exam: ATRAUMATIC, NORMAL INSPECTION, NORMOCEPHALIC - Eye Exam Eye Exam: EOMI - ENT Exam ENT Exam: Mucous Membranes Moist - Respiratory Exam Respiratory Exam: NORMAL BREATHING PATTERN, UNREMARKABLE - Cardiovascular Exam Cardiovascular Exam: REGULAR RHYTHM, +S1, +S2 - GI/Abdominal Exam GI & Abdominal Exam: Normal Bowel Sounds Additional comments: Dressings clean/dry/intact. - Extremities Exam Extremities exam: full ROM, normal inspection - Back Exam Back exam: NORMAL INSPECTION - Neurological Exam Neurological exam: Alert, Oriented x3 - Psychiatric Exam Psychiatric exam: Normal Affect, Normal Mood - Skin Skin Exam: Dry, Intact, Normal Color, Warm Discharge Plan - Discharge Medications Prescriptions: amLODIPine [Norvasc] 10 mg PO DAILY #30 tab hydrALAZINE [Apresoline] 50 mg PO Q8 #90 tab metFORMIN [glucOPHAGE] 500 mg PO BID #60 tab Metoprolol Tartrate [Lopressor] 12.5 mg PO BID #60 tab - Follow Up Plan Condition: GOOD Disposition: HOME/ ROUTINE Instructions: Metoprolol (By mouth), Hydralazine (By mouth), Amlodipine (By mouth), Metformin (By mouth), Acute Kidney Injury (DC), Acute Hematuria (DC) Referrals: Narayan Morris MD [Staff Provider] - Darrian Richardson MD [Medical Doctor] - Louisa Garcia MD [Staff Provider] - <Philomena Coleman V - Last Filed: 06/12/16 23:50> Provider - Provider Date of Admission: 06/01/16 13:25 Attending physician: Philomena Coleman DO Diagnosis - Discharge Diagnosis (1) Renal cell carcinoma Status: Acute (2) Hematuria Status: Chronic (3) STANFORD (acute kidney injury) Status: Acute (4) Diabetes mellitus Status: Chronic (5) Constipation Status: Resolved (6) Hypertension Status: Chronic (7) Prophylactic measure Status: Acute Hospital Course - Lab Results Lab Results: Micro Results 06/02/16 11:05 Blood Blood Culture - Final NO GROWTH AFTER 5 DAYS 06/02/16 11:05 Blood Gram Stain - Final TEST NOT PERFORMED 06/02/16 11:05 Blood Blood Culture - Final NO GROWTH AFTER 5 DAYS 06/02/16 11:05 Blood Gram Stain - Final TEST NOT PERFORMED Most Recent Lab Values WBC 11.1 K/uL (4.8-10.8) H 06/12/16 06:02 RBC 4.68 Mil/uL (4.40-5.90) 06/12/16 06:02 Hgb 12.4 g/dL (12.0-18.0) 06/12/16 06:02 Hct 38.5 % (35.0-51.0) 06/12/16 06:02 MCV 82.3 fL (80.0-94.0) 06/12/16 06:02 MCH 26.5 pg (27.0-31.0) L 06/12/16 06:02 MCHC 32.2 g/dL (33.0-37.0) L 06/12/16 06:02 RDW 14.3 % (11.5-14.5) 06/12/16 06:02 Plt Count 373 K/uL (130-400) 06/12/16 06:02 MPV 8.8 fL (7.2-11.7) 06/12/16 06:02 Neut % (Auto) 71.1 % (50.0-75.0) 06/12/16 06:02 Lymph % (Auto) 17.2 % (20.0-40.0) L 06/12/16 06:02 Camp % (Auto) 6.7 % (0.0-10.0) 06/12/16 06:02 Eos % (Auto) 4.2 % (0.0-4.0) H 06/12/16 06:02 Baso % (Auto) 0.8 % (0.0-2.0) 06/12/16 06:02 Neut # 7.9 K/uL (1.8-7.0) H 06/12/16 06:02 Lymph # 1.9 K/uL (1.0-4.3) 06/12/16 06:02 Camp # 0.7 K/uL (0.0-0.8) 06/12/16 06:02 Eos # 0.5 K/uL (0.0-0.7) 06/12/16 06:02 Baso # 0.1 K/uL (0.0-0.2) 06/12/16 06:02 Retic Count 1.0 % (0.5-1.5) 06/04/16 06:52 PT 14.9 SECONDS (9.7-12.2) H 06/02/16 07:20 INR 1.3 06/02/16 07:20 APTT 32 SECONDS (21-34) 06/02/16 07:20 Sodium 133 mmol/L (132-148) 06/12/16 06:02 Potassium 3.6 mmol/L (3.6-5.2) 06/12/16 06:02 Chloride 96 mmol/L (98-107) L 06/12/16 06:02 Carbon Dioxide 27 mmol/L (22-30) 06/12/16 06:02 Anion Gap 14 (10-20) 06/12/16 06:02 BUN 15 mg/dL (9-20) 06/12/16 06:02 Creatinine 1.6 MG/DL (0.8-1.5) H 06/12/16 06:02 Est GFR ( Amer) 52 06/12/16 06:02 Est GFR (Non-Af Amer) 43 06/12/16 06:02 POC Glucose (mg/dL) 112 mg/dL (65-110) H 06/12/16 16:09 Random Glucose 128 mg/dL (75-110) H 06/12/16 06:02 Hemoglobin A1c 6.5 % (4.2-6.5) 06/02/16 07:20 Uric Acid 8.0 mg/dL (3.5-8.5) 06/04/16 06:52 Calcium 8.7 mg/dl (8.6-10.4) 06/12/16 06:02 Phosphorus 3.3 mg/dL (2.5-4.5) 06/12/16 06:02 Magnesium 2.0 mg/dL (1.6-2.3) 06/12/16 06:02 Ferritin 33.2 ng/mL 06/04/16 06:52 Total Bilirubin 0.8 mg/dL (0.2-1.3) 06/12/16 06:02 AST 27 U/L (17-59) 06/12/16 06:02 ALT 46 U/L (21-72) 06/12/16 06:02 Alkaline Phosphatase 81 U/L (38-126) 06/12/16 06:02 Total Protein 7.1 g/dL (6.3-8.3) 06/12/16 06:02 Albumin 3.4 g/dL (3.5-5.0) L 06/12/16 06:02 Globulin 3.7 gm/dL (2.2-3.9) 06/12/16 06:02 Albumin/Globulin Ratio 0.9 (1.0-2.1) L 06/12/16 06:02 Triglycerides 195 mg/dL (0-149) H D 06/02/16 07:20 Cholesterol 194 mg/dL (0-199) 06/02/16 07:20 LDL Cholesterol Direct 107 mg/dL (0-129) 06/02/16 07:20 HDL Cholesterol 28 mg/dL (30-70) L 06/02/16 07:20 Vitamin B12 811 pg/mL (239-931) 06/04/16 06:52 Folate 10.8 ng/mL 06/04/16 06:52 Urine Color Yellow (YELLOW) 06/01/16 08:40 Urine Clarity Hazy (Clear) 06/01/16 08:40 Urine pH 5.0 (5.0-8.0) 06/01/16 08:40 Ur Specific Lavelle 1.012 (1.003-1.030) 06/01/16 08:40 Urine Protein 1+ mg/dL (NEGATIVE) H 06/01/16 08:40 Urine Glucose (UA) Normal mg/dL (Normal) 06/01/16 08:40 Urine Ketones Negative mg/dL (NEGATIVE) 06/01/16 08:40 Urine Blood 3+ (NEGATIVE) H 06/01/16 08:40 Urine Nitrate Negative (NEGATIVE) 06/01/16 08:40 Urine Bilirubin Negative (NEGATIVE) 06/01/16 08:40 Urine Urobilinogen Normal mg/dL (0.2-1.0) 06/01/16 08:40 Ur Leukocyte Esterase Neg Bibi/uL (Negative) 06/01/16 08:40 Urine WBC (Auto) 5 /hpf (0-5) 06/01/16 08:40 Urine RBC (Auto) 322 /hpf (0-3) H 06/01/16 08:40 Ur Squamous Epith Cells < 1 /hpf (0-5) 06/01/16 08:40 Blood Type B POSITIVE 06/06/16 07:49 Antibody Screen Negative 06/06/16 07:49 Attending/Attestation - Attestation I have personally seen and examined this patient.: Yes I have fully participated in the care of the patient.: Yes I have reviewed all pertinent clinical information, including history, physical exam and plan: Yes Notes (Text): Patient seen, examined, and case discussed with day-time resident. Please refer to my progress note of same date for further details. Discussed urology and nephrology, patient stable for discharge and will need outpatient surveillance of renal cell carcinoma. Patient is pain controlled, having bowel movements, and urinating. Patient is medically stable for discharge. Patient follow-up with Dr Louisa Garcia within one week for stitch removal (please provide patient with phone number and address of urology). patient to follow-up with PMD within one week of discharge and follow-up with Anuradha Morris (heme-onc) for surveillance for renal cell carcinoma and with drama teacher in 1 month. Patient started on new medications: 1) Norvasc 10mg PO daily (30/0) 2) Lopressor 12.5mg PO bid (60/0) 3) Hydralazine 50mg PO TID (90/0) 4) Metformin 500mg PO bid (60/0) Discontinue home atenolol and lowered metformin. This is a summary of patient's hospitalization. Please refer to EMR for further details.
--- NOTE | 2016-06-12 23:21 | PN ---
DATE: 06/12/2016 LOCATION: The patient is located in room 351, bed A. HISTORY OF PRESENT ILLNESS: The patient is a 66-year-old elderly male with a history of longstanding hypertension, diabetes, gross hematuria on and off since 12/2015, and found to have large left renal mass. The patient underwent robotic left radical nephrectomy. The patient is feeling better. The patient claims he had good bowel movements about 5 times yesterday and a couple today. The patient is feeling better, not in acute distress, and denies any nausea, vomiting, diarrhea. Denies any chest pain, palpitation. Denies any fever, cough. No swelling of the legs. No dysuria or frequency. No hematuria. PHYSICAL EXAMINATION: VITAL SIGNS: As follows: Blood pressure 147/89, pulse 95, respiration 20, temperature 99.1, saturation 95%, height 5 feet 7 inches and weight is 210 pounds. GENERAL: The patient is a 66-year-old elderly male, moderately built, moderately nourished, not in acute distress. HEENT: Pupils normal, reactive to light and accommodation. Conjunctivae pink. Sclerae anicteric. Tongue is moist. NECK: Trachea midline. LUNGS: Symmetric on both sides. Bilateral breath sounds present. Clear on auscultation. CARDIOVASCULAR: Bradford at the 5th intercostal space midclavicular line. S1 and S2 audible. No murmur or gallop. ABDOMEN: Slightly distended, soft and nontender. No guarding, no rigidity. Bowel sounds present. No hepatosplenomegaly. CENTRAL NERVOUS SYSTEM: The patient is alert, awake, oriented x 3, nonfocal on examination. Cranial nerves II through XII grossly intact. Sensory and motor system is within normal limits. EXTREMITIES: No cyanosis, no clubbing, no edema. CURRENT MEDICATIONS: Include as follows: Hydralazine 50 mg p.o. q. 8 hours, Colace 100 mg p.o. t.i.d., colchicine 0.6 mg p.o. daily, Florastor 250 mg p.o. b.i.d., Lopressor 12.5 mg p.o. b.i.d. and MiraLAX 17 grams p.o. daily, Norvasc 10 mg p.o. daily, and Protonix 40 mg p.o. daily. LABORATORY DATA: Include as follows: As of 06/12/2016, WBC 11.1, hemoglobin 12.4, hematocrit is 38.5, platelets 373. Sodium 133, potassium 3.6, chloride 96 , CO2 27, BUN 15, creatinine 1.2, glucose 128, calcium 8.7, phosphorus 3.3, magnesium is 2. Total bili 0.8, AST 27, ALT 46, alkaline phosphatase is 81, total protein 7.1, albumin is 3.4. The pathology report, as of 06/06/2016, final diagnosis, left kidney total nephrectomy and histological type clear cell, renal cell carcinoma, and the extent of the tumor is limited to kidney. SUMMARY: The patient is a well-known 66-year-old elderly male with a history of hypertension, diabetes, with hematuria and left renal mass. Underwent radical nephrectomy, robotic, on 06/06/2016, and the pathology report consistent with clear cell carcinoma limited to kidney. 1. Status post robotic radical nephrectomy for the malignancy. 2. Hypertension. Blood pressure is stable. Continue his current antihypertensive medications; hydralazine, Norvasc, and Lopressor. 3. Acute on chronic kidney disease secondary to a radical nephrectomy. Encourage p.o. fluid intake and avoiding nephrotoxic agent. Case discussed with Dr. Philomena Coleman for possible discharge today and I agree with the discharge plan. Thank you for allowing me to participate in your patient's care. The patient can be followed in the office in 1 month. Maryam Clinton MD cc: [id number] TT: 06/12/2016 23:20:48 Confirmation # [id number] Dictation # [id number] terry NAVARRO
--- NOTE | 2016-06-14 16:50 | OP ---
PROCEDURE DATE: 06/06/2016 SURGEON: Greogry Garcia MD VOCATIONAL EVALUATOR: Louisa Garcia MD PROCEDURE PERFORMED: Left robotic-assisted laparoscopic radical nephrectomy. PREOPERATIVE DIAGNOSES: Gross hematuria, left renal mass. POSTOPERATIVE DIAGNOSES: Gross hematuria, left renal mass. DESCRIPTION OF PROCEDURE: The patient was taken to the OR and placed in a supine position. After an esthetic was obtained, placed in left lateral position up. All the pressure points were padded. The patient was prepped in usual manner. An incision was made lateral to the umbilicus, deepened to sub cutaneous tissue and insufflation was done. Then, 8 mm robotic camera port was placed and an additio nal 8 mm robotic port was placed and then 12 mm podiatrist assistant port was placed and robot was docked. Adhesions were taken down and colon was mobilized and kidney was mobilized medially. Adrenal was germán ntified. Skin was mobilized further away from the kidney. Then, the hilum was identified. Renal ar kevin and renal vein were identified and then hilum was freed and mobilized and en bloc the vessel was taken and then adrenal was taken with the mass as well. It seems this had a significant upper pole protrusion. At that point, the kidney was mobilized further superiorly and inferiorly. The ureter w as taken and then laterally it was mobilized and freed. At that point, the kidney was completely bhavik ed; it was placed in the bag. Then hilar area was checked. Insufflation was lowered. There was no bleeding seen. Then the robot was undocked. Specimen was placed in the bag and the podiatrist assistant and the robotic port w as connected and then it was removed through that. was used to close the fascia and then skin was closed with the stapler. The patient tolerated well. No was no complication to the case. The patient was then awakened and t ransferred to recovery room in stable condition. Lyric Garcia MD cc: [id number] TT: 06/14/2016 16:49:17 terry
== END 2016-06-12 18:20 | disposition home or self-care (01) | DRG 657 ==
LOC: C.ER 07:59 → C.3T 13:25
PROVIDERS: ADMIT Hospitalist; ATTEND Hospitalist
PROC: 0GT24ZZ Resection of Left Adrenal Gland, Percutaneous Endoscopic Approach (ICD-10-PCS; 2016-06-06)
PROC: 8E0W4CZ Robotic Assisted Procedure of Trunk Region, Percutaneous Endoscopic Approach (ICD-10-PCS; 2016-06-06)
PROC: 0TT14ZZ Resection of Left Kidney, Percutaneous Endoscopic Approach (ICD-10-PCS; principal; 2016-06-06 12:15)
DX: C64.2 Malignant neoplasm of left kidney, except renal pelvis (principal); N17.9 Acute kidney failure, unspecified; E11.22 Type 2 diabetes mellitus with diabetic chronic kidney disease; E86.0 Dehydration; G89.18 Other acute postprocedural pain; I12.9 Hypertensive chronic kidney disease with stage 1 through stage 4 chronic kidney disease, or unspecified chronic kidney disease; E78.5 Hyperlipidemia, unspecified; N18.9 Chronic kidney disease, unspecified; M10.9 Gout, unspecified; Z80.1 Family history of malignant neoplasm of trachea, bronchus and lung; R31.0 Gross hematuria; Z79.4 Long term (current) use of insulin; K59.00 Constipation, unspecified; D72.829 Elevated white blood cell count, unspecified; D64.9 Anemia, unspecified

== ENCOUNTER 2017-10-10 08:50 | Day surgery (SDC) | payer OTHER ==
[2017-10-10 09:35] VITALS: BMI 34.4
[2017-10-10] MEDS ORDERED: Lactated Ringer's 500 ML IV SCH (12:30)
[2017-10-10] MEDS ORDERED: Lactated Ringer's 500 ML IV ONE (12:31)
[2017-10-10] MEDS ORDERED: Midazolam 2 MG/2 ML VIAL ONE (12:32)
[2017-10-10] MEDS ORDERED: Propofol 10 mg/ml Inj (20 ML) ONE (12:43)
[2017-10-10 13:22] VITALS: TEMP 96.9
[2017-10-10 13:38] VITALS: O2SAT 99
[2017-10-10 14:23] VITALS: BP 141/92; PULSE 59; RESP 18
== END 2017-10-10 14:15 | disposition home or self-care (01) ==
LOC: C.ENDO 08:50
PROVIDERS: ATTEND Internal Medicine Gastroenterology
DX: D12.5 Benign neoplasm of sigmoid colon (principal); D12.4 Benign neoplasm of descending colon; D12.3 Benign neoplasm of transverse colon; K64.8 Other hemorrhoids
CPT/HCPCS: 45385; 82948; 88305; J2250; J2704; J7120